=== PATIENT | male | born 1955 | race African-American/Black ===

== ENCOUNTER 2016-12-04 09:15 | Emergency (ER) | payer MEDICAID ==
[2016-12-04] MEDS ORDERED: AMLODIPINE BESYLATE 5 MG TABLET PO ONE (10:18)
[2016-12-04] MEDS ORDERED: OXYCODONE-ACETAMINOPHEN 5-325 MG TABLET PO ONE (10:19)
--- NOTE | 2016-12-04 10:22 | ER Document Report ---
ED General - General Chief Complaint: High Blood Pressure Stated Complaint: HIGH BLOOD PRESSURE CONCERNS Mode of Arrival: Ambulatory Information source: Patient Notes: 61 yr old male presents with complaints of high blood pressure and gout i nthe left big toe. pt denies any fevers or chills. pt presents with an empty bottle of amlodipine 5mg daily which was filled by the ED in 2014. pt notes gout has been bothering him for a few days TRAVEL OUTSIDE OF THE [place] IN LAST 30 DAYS: No - HPI Onset: Other Onset/Duration: Persistent Quality of pain: Achy Severity: Mild Pain Level: 1 Associated symptoms: Other. denies: Headache Exacerbated by: Denies Relieved by: Denies Similar symptoms previously: Yes Recently seen / treated by doctor: Yes - Related Data Allergies/Adverse Reactions: No Known Allergies Allergy (Verified 12/04/16 09:24) Past Medical History - Social History Smoking Status: Never Smoker Cigarette use (# per day): No Chew tobacco use (# tins/day): No Smoking Education Provided: No Frequency of alcohol use: None Drug Abuse: None Family History: Reviewed & Not Pertinent Patient has suicidal ideation: No Patient has homicidal ideation: No - Past Medical History Cardiac Medical History: Reports: Hx Hypertension Renal/ Medical History: Denies: Hx Peritoneal Dialysis Musculoskeltal Medical History: Reports Hx Gout Past Surgical History: Reports: Hx Bowel Surgery - Colonoscopy with polyp removal 2004 - Immunizations Immunizations up to date: Yes Hx Diphtheria, Pertussis, Tetanus Vaccination: Yes Review of Systems - Review of Systems Notes: REVIEW OF SYSTEMS: CONSTITUTIONAL : Denies fever, chills, or sweats. Denies recent illness. EENT: Denies eye, ear, throat, or mouth pain or symptoms. Denies nasal or sinus congestion or discharge. Denies throat, tongue, or mouth swelling or difficulty swallowing. CARDIOVASCULAR: Denies chest pain. Denies palpitations or racing or irregular heart beat. Denies ankle edema. RESPIRATORY: Denies cough, cold, or chest congestion. Denies shortness of breath, difficulty breathing, or wheezing. GASTROINTESTINAL: Denies abdominal pain or distention. Denies nausea, vomiting , or diarrhea. Denies blood in vomitus, stools, or per rectum. Denies black, tarry stools. Denies constipation. GENITOURINARY: Denies difficulty urinating, painful urination, burning, frequency, blood in urine, or discharge. MUSCULOSKELETAL: admits to toe pain SKIN: Denies rash, lesions or sores. HEMATOLOGIC : Denies easy bruising or bleeding. LYMPHATIC: Denies swollen, enlarged glands. NEUROLOGICAL: Denies confusion or altered mental status. Denies passing out or loss of consciousness. Denies dizziness or lightheadedness. Denies headache. Denies weakness or paralysis or loss of use of either side. Denies problems with gait or speech. Denies sensory loss, numbness, or tingling. Denies seizures. PSYCHIATRIC: Denies anxiety or stress. Denies depression, suicidal ideation, or homicidal ideation. ALL OTHER SYSTEMS REVIEWED AND NEGATIVE. Dictation was performed using [employer] voice recognition software PHYSICAL EXAMINATION: GENERAL: Well-appearing, well-nourished and in no acute distress. HEAD: Atraumatic, normocephalic. EYES: Pupils equal round and reactive to light, extraocular movements intact, sclera anicteric, conjunctiva are normal. ENT: Nares patent, oropharynx clear without exudates. Moist mucous membranes. NECK: Normal range of motion, supple without lymphadenopathy LUNGS: Breath sounds clear to auscultation bilaterally and equal. No wheezes rales or rhonchi. HEART: Regular rate and rhythm without murmurs ABDOMEN: Soft, nontender, nondistended abdomen. No guarding, no rebound. No masses appreciated. Musculoskeletal: Normal range of motion, no pitting or edema. No cyanosis. NEUROLOGICAL: Cranial nerves grossly intact. Normal speech, normal gait. Normal sensory, motor exams PSYCH: Normal mood, normal affect. SKIN: left foot 1st digit warm ,tender ot palpation no secondary sign of infection Physical Exam - Vital signs Vitals: Temp Pulse Resp BP Pulse Ox 97 F L 78 16 208/91 H 98 12/04/16 09:28 12/04/16 09:28 12/04/16 09:28 12/04/16 09:28 12/04/16 09:28 Course - Re-evaluation Re-evalutation: 12/04/16 11:38 pt given a dose of amlodipine and a refil, he was provided pain control since he does not want indomethacin or prednisone. pt otehrwise stable, bp lowered 20 % before discharge pt must see a pcp since he hasnt had bp meds filled in over 14 months After performing a Medical Screening Examination, I estimate there is LOW risk for ACUTE CORONARY SYNDROME, RESPIRATORY FAILURE, SEPSIS OR MENINGITIS, thus I consider the discharge disposition reasonable. The patient and I have discussed the diagnosis and risks, and we agree with discharging home with close follow- up. We also discussed returning to the Emergency Department immediately if new or worsening symptoms occur. We have discussed the symptoms which are most concerning (e.g., changing or worsening pain, trouble swallowing or breathing, neck stiffness, fever) that necessitate immediate return. - Vital Signs Vital signs: Temp Pulse Resp BP Pulse Ox 98.5 F 73 16 176/111 H 99 12/04/16 10:38 12/04/16 10:38 12/04/16 09:28 12/04/16 10:38 12/04/16 10:38 Discharge - Discharge Clinical Impression: Uncontrolled hypertension, Noncompliance with medication regimen Gout Qualifiers: Gout site: toe Gout etiology: unspecified cause Laterality: left Chronicity: acute Qualified Code(s): M10.9 - Gout, unspecified Condition: Stable Disposition: HOME, SELF-CARE Instructions: High Blood Pressure, Requiring Treatment ([facility]) Prescriptions: Amlodipine Besylate 5 mg PO DAILY #30 tab Oxycodone HCl/Acetaminophen [Percocet 5-325 mg Tablet] 1 tab PO Q6 #15 tab Referrals: [facility] [Provider Group] - Follow up as needed
[2016-12-04 10:46] VITALS: BP 176/111
== END 2016-12-04 10:44 | disposition home or self-care (01) ==
LOC: ER 09:15
DX: I10 Essential (primary) hypertension (principal); Z91.14 Patient's other noncompliance with medication regimen; M10.9 Gout, unspecified
CPT/HCPCS: 99283; J3490

== ENCOUNTER 2016-12-22 10:18 | Emergency (ER) | payer MEDICAID ==
--- NOTE | 2016-12-22 11:01 | ER Document Report ---
ED Medical Screen (RME) - General Chief Complaint: Foot Pain Stated Complaint: FOOT PAIN Mode of Arrival: Ambulatory Information source: Patient Notes: 61 y/o M presents to ED c/o bilateral foot pain since this morning. Reports hx of gout and states feels like a flare up. was here approximately 2 weeks ago for similar symptoms as well as elevated bp. does not have any medication for gout and has not been able to see pcp. I have greeted and performed a rapid initial assessment of this patient. A comprehensive ED assessment and evaluation of the patient, analysis of test results and completion of the medical decision making process will be conducted by additional ED providers. TRAVEL OUTSIDE OF THE [place] IN LAST 30 DAYS: No - Related Data Allergies/Adverse Reactions: No Known Allergies Allergy (Verified 12/22/16 10:56) Past Medical History - Social History Chew tobacco use (# tins/day): No Frequency of alcohol use: None Drug Abuse: None - Past Medical History Cardiac Medical History: Reports: Hx Hypertension Renal/ Medical History: Denies: Hx Peritoneal Dialysis Musculoskeltal Medical History: Reports Hx Gout Past Surgical History: Reports: Hx Bowel Surgery - Colonoscopy with polyp removal 2004 - Immunizations Immunizations up to date: Yes Hx Diphtheria, Pertussis, Tetanus Vaccination: Yes Physical Exam - Vital signs Vitals: Temp Pulse Resp BP Pulse Ox 98.1 F 79 16 180/99 H 97 12/22/16 10:53 12/22/16 10:53 12/22/16 10:53 12/22/16 10:53 12/22/16 10:53 - General General appearance: Appears well, Alert In distress: None - Respiratory Respiratory status: No respiratory distress Course - Vital Signs Vital signs: Temp Pulse Resp BP Pulse Ox 98.1 F 79 16 180/99 H 97 12/22/16 10:53 12/22/16 10:53 12/22/16 10:53 12/22/16 10:53 12/22/16 10:53
[2016-12-22] MEDS ORDERED: OXYCODONE-ACETAMINOPHEN 5-325 MG TABLET PO ONE (14:35)
--- NOTE | 2016-12-22 14:36 | ER Document Report ---
HPI - HPI Patient complains to provider of: gout Onset: This morning Onset/Duration: Sudden Severity: Severe Pain Level: 5 Context: Patient presents to the emergency department with complaints of right great toe pain due to gout. He reports he was here 2 weeks ago for the gout pain also but it was the left great toe. He reports he does have Medicaid and his primary care provider is [facility] but they didn't seem to care. He denies other symptoms such as fever vomiting diarrhea. He denies trauma to the foot. Patient reports he used to go to Dr. chong for gout but she doesn't accept Medicaid anymore. Associated Symptoms: None Exacerbated by: Denies Relieved by: Denies Similar symptoms previously: Yes Recently seen / treated by doctor: Yes - DERM Skin Color: Normal Past Medical History - General Information source: Patient - Social History Smoking Status: Current Every Day Smoker Chew tobacco use (# tins/day): No Frequency of alcohol use: None Drug Abuse: None Family History: Reviewed & Not Pertinent, Malignancy - mom lung cancer Patient has suicidal ideation: No Patient has homicidal ideation: No - Past Medical History Cardiac Medical History: Reports: Hx Hypertension Renal/ Medical History: Denies: Hx Peritoneal Dialysis Musculoskeltal Medical History: Reports Hx Gout Past Surgical History: Reports: Hx Bowel Surgery - Colonoscopy with polyp removal 2004 - Immunizations Immunizations up to date: Yes Hx Diphtheria, Pertussis, Tetanus Vaccination: Yes Vertical Provider Document - CONSTITUTIONAL Agree With Documented VS: Yes Exam Limitations: No Limitations General Appearance: WD/WN, Mild Distress - guarding toe - INFECTION CONTROL TRAVEL OUTSIDE OF THE [place] IN LAST 30 DAYS: No - HEENT HEENT: Atraumatic, Normocephalic - NECK Neck: Normal Inspection, Supple. negative: Lymphadenopathy-Left, Lymphadenopathy-Right - RESPIRATORY Respiratory: Breath Sounds Normal, No Respiratory Distress O2 Sat by Pulse Oximetry: 97 - CARDIOVASCULAR Cardiovascular: Regular Rate - MUSCULOSKELETAL/EXTREMETIES Musculoskeletal/Extremeties: MAEW, FROM, Tender - Right great toe tender with erythema good cap refill - NEURO Level of Consciousness: Awake, Alert, Appropriate Motor/Sensory: No Motor Deficit - DERM Integumentary: Warm, Dry Course - Re-evaluation Re-evalutation: 12/22/16 14:45 I have consulted the attending provider dr martinez per [facility] guidelines Patient was instructed on medications. He was also instructed to follow up with [facility] for chronic treatment of his gout. He verbalized understanding. - Vital Signs Vital signs: Temp Pulse Resp BP Pulse Ox 98.1 F 79 16 180/99 H 97 12/22/16 10:53 12/22/16 10:53 12/22/16 10:53 12/22/16 10:53 12/22/16 10:53 Discharge - Discharge Clinical Impression: Elevated blood pressure reading Gout Qualifiers: Gout site: toe Gout etiology: unspecified cause Laterality: right Chronicity: acute Qualified Code(s): M10.9 - Gout, unspecified Condition: Stable Disposition: HOME, SELF-CARE Instructions: Gout ([facility]), Gout Diet ([facility]), Anti-Inflammatory Medication ([facility]), Steroid Medication, Oral Narcotic Medication ([facility]) Additional Instructions: *You have been evaluated for right great toe pain, history of gout *Monitor your blood pressure. Your blood pressure was elevated today. This may be because you were anxious, in pain or because you need medication. It is important to follow up with your primary care provider for full evaluation. *Follow up with your primary care provider tomorrow for treatment of your blood pressure and gout *Monitor your diet *Take medication as prescribed *Return to ED for worsening condition, changes, needs Prescriptions: Celecoxib [Celebrex 100 mg Capsule] 100 mg PO BID #60 capsule Oxycodone HCl/Acetaminophen [Percocet 5-325 mg Tablet] 1 - 2 tab PO ASDIR PRN # 15 tablet PRN Reason: Prednisone [Deltasone 10 mg Tablet] 10 mg PO ASDIR PRN #21 tablet PRN Reason: Forms: Elevated Blood Pressure Referrals: OBED MERRITT MD [Primary Care Provider] - Follow up as needed
[2016-12-22 15:00] VITALS: BP 187/94
== END 2016-12-22 14:53 | disposition home or self-care (01) ==
LOC: ER 10:18
DX: R03.0 Elevated blood-pressure reading, without diagnosis of hypertension (principal); M10.9 Gout, unspecified; F17.210 Nicotine dependence, cigarettes, uncomplicated
CPT/HCPCS: 99283

== ENCOUNTER 2017-06-04 13:20 | Emergency (ER) | payer MEDICAID ==
[2017-06-04] MEDS ORDERED: CLONIDINE HCL 0.2 MG TABLET PO ONE (13:39)
--- NOTE | 2017-06-04 13:41 | ER Document Report ---
ED Medical Screen (RME) - General Chief Complaint: High Blood Pressure Stated Complaint: HIGH BLOOD PRESSURE Time Seen by Provider: 06/04/17 13:27 Mode of Arrival: Wheelchair Information source: Patient, Relative TRAVEL OUTSIDE OF THE [place] IN LAST 30 DAYS: No - HPI Patient complains to provider of: Elevated blood pressure, periods of confusion Onset: Last week Onset/Duration: Intermittent Notes: 06/04/17 13:40 Patient is a 61-year-old male brought to the emergency room by for complaints of elevated blood pressure with periods of confusion, she states yesterday he was standing, staring at the blank screen of his phone, turnaround and a complete [place] and stated he was disoriented, patient has been without his blood pressure medication for the past 2 weeks, he is also had some other episodes of confusion over the past few days that is concerned about, attempted to take him to see a primary care provider today but was further advised to bring him to the emergency room, at first patient was refusing to be seen in the emergency room but eventually agreeable to, he denies any headache, no vision changes, no chest pain or shortness of breath, he is noted to be quite hypertensive in the triage area, but remaining neurological exam is unremarkable - Related Data Allergies/Adverse Reactions: No Known Allergies Allergy (Verified 06/04/17 13:37) Past Medical History - Past Medical History Cardiac Medical History: Reports: Hx Hypertension Renal/ Medical History: Denies: Hx Peritoneal Dialysis Musculoskeltal Medical History: Reports Hx Gout Past Surgical History: Reports: Hx Bowel Surgery - Colonoscopy with polyp removal 2004 - Immunizations Immunizations up to date: Yes Hx Diphtheria, Pertussis, Tetanus Vaccination: Yes Physical Exam - Vital signs Vitals: Temp Pulse Resp BP Pulse Ox 99.6 F 79 18 203/99 H 99 06/04/17 13:22 06/04/17 13:22 06/04/17 13:22 06/04/17 13:22 06/04/17 13:22 Course - Vital Signs Vital signs: Temp Pulse Resp BP Pulse Ox 99.6 F 79 18 203/99 H 99 06/04/17 13:22 06/04/17 13:22 06/04/17 13:22 06/04/17 13:22 06/04/17 13:22
[2017-06-04 14:06] LABS: ABSOLUTE BASOPHILS # (AUTO) 0.1 10^3/uL (0.0-0.2); ABSOLUTE MONOCYTES (AUTO) 0.8 10^3/uL (0.1-1.4); ABSOLUTE NEUT (AUTO) 3.8 10^3/uL (1.7-8.2); EOSINOPHILS % (AUTO) 0.4 % (0-6); HEMATOCRIT 49.6 % (37.9-51.0); HEMOGLOBIN 16.7 g/dL (13.5-17.0); HGB HCT DIFFERENCE 0.5; MEAN CORPUSCULAR HEMOGLOBIN 30.5 pg (27.0-33.4); MEAN CORPUSCULAR HGB CONC 33.6 g/dL (32.0-36.0); MEAN CORPUSCULAR VOLUME 91 fl (80-97); MONOCYTES % (AUTO) 11.9 % (3-13); RED BLOOD COUNT 5.47 10^6/uL (4.35-5.55); RED CELL DISTRIBUTION WIDTH 15.6 % (11.5-14.0); SEGMENTED NEUTROPHILS % (AUTO) 56.7 % (42-78); WHITE BLOOD COUNT 6.6 10^3/uL (4.0-10.5)
[2017-06-04 14:13] LABS: APPEARANCE,URINE CLEAR; BILIRUBIN,URINE NEGATIVE (NEGATIVE); GLUCOSE, URINE NEGATIVE (NEGATIVE); KETONES,URINE NEGATIVE (NEGATIVE); LEUKOCYTE ESTERASE,URINE NEGATIVE (NEGATIVE); NITRITE,URINE NEGATIVE (NEGATIVE); PROTEIN,URINE 100 mg/dL (NEGATIVE); UROBILINOGEN,URINE NEGATIVE mg/dL (<2.0)
[2017-06-04 14:16] LABS: PROTHROMBIN TIME 13.5 SEC (11.4-15.4)
[2017-06-04 14:17] LABS: PARTIAL THROMBOPLASTIN TIME 27.9 SEC (23.5-35.8)
[2017-06-04 14:25] LABS: ALANINE AMINOTRANSFERASE 24 U/L (21-72); ALBUMIN 4.9 g/dL (3.5-5.0); ALKALINE PHOSPHATASE 83 U/L (38-126); ANION GAP 14 (5-19); ASPARTATE AMINO TRANSFERASE 27 U/L (17-59); BILIRUBIN,DIRECT 0.3 mg/dL (0.0-0.4); BILIRUBIN,TOTAL 0.5 mg/dL (0.2-1.3); BLOOD UREA NITROGEN 18 mg/dL (7-20); CALCIUM 9.4 mg/dL (8.4-10.2); CARBON DIOXIDE 27 mmol/L (22-30); CHLORIDE 102 mmol/L (98-107); CREATINE KINASE 197 U/L (55-170); CREATININE RESULT 1.22 mg/dL (0.52-1.25); GLUCOSE 135 mg/dL (75-110); POTASSIUM 4.2 mmol/L (3.6-5.0); SODIUM 142.6 mmol/L (137-145); TOTAL PROTEIN 8.1 g/dL (6.3-8.2)
[2017-06-04 14:33] LABS: CREATINE KINASE MB 1.37 ng/mL (<4.55)
[2017-06-04 14:34] LABS: TROPONIN I < 0.012 ng/mL
--- NOTE | 2017-06-04 14:35 | ER Document Report ---
ED Neuro Symptoms/Deficit - General Chief Complaint: High Blood Pressure Stated Complaint: HIGH BLOOD PRESSURE Time Seen by Provider: 06/04/17 13:27 Mode of Arrival: Wheelchair Notes: The patient is a 61-year-old male, past medical history hypertension, presents with 24 hours of ataxia and confusion, according to his at bedside. The patient was saying that he was going to change the brakes on the car, but the said they do not not have a car. When he walks, he is drifting to the right side. Patient is intermittently noncompliant with his blood pressure medications. He took a baby aspirin earlier today. Patient denies headache, blurry vision, focal weakness, numbness, tingling, difficulty swallowing, shortness of breath, chest pain, fevers, back pain or abdominal pain. TRAVEL OUTSIDE OF THE [place] IN LAST 30 DAYS: No - Related Data Allergies/Adverse Reactions: No Known Allergies Allergy (Verified 06/04/17 13:37) Past Medical History - General Information source: Patient, Relative - Social History Smoking Status: Current Every Day Smoker Chew tobacco use (# tins/day): No Frequency of alcohol use: None Drug Abuse: None Family History: Reviewed & Not Pertinent - Past Medical History Cardiac Medical History: Reports: Hx Hypertension Renal/ Medical History: Denies: Hx Peritoneal Dialysis Musculoskeltal Medical History: Reports Hx Gout Past Surgical History: Reports: Hx Bowel Surgery - Colonoscopy with polyp removal 2004 - Immunizations Immunizations up to date: Yes Hx Diphtheria, Pertussis, Tetanus Vaccination: Yes Review of Systems - Review of Systems Notes: REVIEW OF SYSTEMS: CONSTITUTIONAL: -fevers, -chills EENT: -eye pain, -difficulty swallowing, -nasal congestion CARDIOVASCULAR:-chest pain, -syncope. RESPIRATORY: -cough, -SOB GASTROINTESTINAL: -abdominal pain, - nausea, -vomiting, -diarrhea GENITOURINARY: -dysuria, -hematuria MUSCULOSKELETAL: -back pain, -neck pain SKIN: -rash or skin lesions. HEMATOLOGIC: -easy bruising or bleeding. LYMPHATIC: -swollen, enlarged glands. NEUROLOGICAL: +confusion, +ataxia, -loss of consciousness, -headache PSYCHIATRIC: -anxiety, -depression. ALL OTHER SYSTEMS REVIEWED AND NEGATIVE. Physical Exam - Vital signs Vitals: Temp Pulse Resp BP Pulse Ox 99.6 F 79 18 203/99 H 99 06/04/17 13:22 08/03/17 13:22 06/04/17 13:22 06/04/17 13:22 06/04/17 13:22 - Notes Notes: PHYSICAL EXAMINATION: GENERAL: Well-appearing, well-nourished and in no acute distress. Protecting his airway. HEAD: Atraumatic, normocephalic. EYES: Pupils equal round and reactive to light, extraocular movements intact, sclera anicteric, conjunctiva are normal. ENT: nares patent, oropharynx clear without exudates. Moist mucous membranes. NECK: Normal range of motion, supple without lymphadenopathy LUNGS: Breath sounds clear to auscultation bilaterally and equal. No wheezes rales or rhonchi. HEART: Regular rate and rhythm without murmurs ABDOMEN: Soft, nontender, normoactive bowel sounds. No guarding, no rebound. No masses appreciated. EXTREMITIES: Normal range of motion, no pitting or edema. No cyanosis. NEUROLOGICAL: Cranial nerves grossly intact. Slowed speech, but not slurred. 5/ 5 strength in all 4 extremities. Sensation intact. Past pointing present in right arm. Positive Romberg's. Unable to perform rapid alternating hand movements. PSYCH: Normal mood, normal affect. SKIN: Warm, Dry, normal turgor, no rashes or lesions noted. Course - Re-evaluation Re-evalutation: 06/04/17 14:20 Saw patient immediately after his CT scan. Spoke to Dr. Delaney (Radiologist) and she said that patient has a thalamic hemorrhagic infarct that went intraventricular with mild hydrocephalus. Patient is protecting his airway. Cardene drip started with goal blood pressure <140/90. 06/04/17 14:38 No Neurosurgery aws solution architect at [place]. Spoke to [facility] and awaiting callback from Neurosurgery and MICU. 06/04/17 14:[address] Mina ([facility]) and he has accepted patient. 06/04/17 19:29 Pt ambulated out the ambulance bay to smoke a cigarette. Attempted to bring pt in, but he refused until his cigarette is done. Security and RN outside with patient. Nicotine patch provided to patient. 06/04/17 20:18 Transport in ED. Pt is HD stable and protecting his airway. He is safe for transport. - Vital Signs Vital signs: Temp Pulse Resp BP Pulse Ox 98.9 F 76 26 H 156/82 H 100 06/04/17 13:33 06/04/17 16:15 06/04/17 20:05 06/04/17 20:05 06/04/17 19:11 - Laboratory Result Diagrams: 06/04/17 13:55 06/04/17 13:55 Laboratory results interpreted by me: 06/04/17 06/04/17 06/04/17 13:55 13:55 13:58 RDW 15.6 H Glucose 135 H Creatine Kinase 197 H Urine Protein 100 H - Diagnostic Test Radiology reviewed: Image reviewed, Reports reviewed Radiology results interpreted by me: CT Head: Acute hemorrhage, left medial thalamus with extension into the 3rd ventricle and frontal horns lateral ventricles with very early changes of hydrocephalus. Mild dilatation of the temporal horns lateral ventricles. CXR: NAD - EKG Interpretation by Me EKG shows normal: Sinus rhythm, [place], Intervals, QRS Complexes, ST-T Waves Rate: Normal When compared to previous EKG there are: Previous EKG unavailable Additional EKG results interpreted by me: LV[facility]. ST depressions in V5-V6. Critical Care Note - Critical Care Note Total time excluding time spent on procedures (mins): 35 Discharge - Discharge Clinical Impression: Thalamic hemorrhage with stroke Condition: Serious Disposition: [facility] Referrals: OBED MERRITT MD [Primary Care Provider] - Follow up as needed
--- NOTE | 2017-06-04 14:40 | RADIOLOGY REPORT (SQ) ---
EXAM DESCRIPTION: CT HEAD WITHOUT COMPLETED DATE/TIME: 06/04/2017 2:22 pm REASON FOR STUDY: injury COMPARISON: None. TECHNIQUE: Axial images acquired through the brain without intravenous contrast. Images reviewed wi th bone, brain and subdural windows. Images stored on PACS. All CT scanners at this facility use dose modulation, iterative reconstruction, and/or weight based d osing when appropriate to reduce radiation dose to as low as reasonably achievable (ALARA). [facility]: Dose Right [facility]: CareDose [facility]: Dose Right [facility]: Teradose 4D [facility]: Smart DEXMA RADIATION DOSE: Up-to-date CT equipment and radiation dose reduction techniques were employed. CTDIv ol: 64.6 mGy. DLP: 1163 mGy-cm. mGy. LIMITATIONS: None. FINDINGS: VENTRICLES: Very mild prominence of the temporal horns of the lateral ventricles. There i s acute intraventricular hemorrhage in the 3rd ventricle and frontal horns lateral ventricles near th e foramina of [place]. Hemorrhage likely originates from the medial left thalamus. CEREBRUM: On axial image 19, a 2 x 1.5 cm acute parenchymal hemorrhage in the medial left thalamus is present. This extends medially into the 3rd ventricle. There is mild local mass effect from the sp lenic parenchymal hemorrhage. Remainder of the brain parenchyma demonstrates up chronic punctate lacunar infarct in the right thala mus axial image 19, and mild spotty bifrontal and biparietal small vessel chronic white matter diseas e. CEREBELLUM: No masses. No hemorrhage. No alteration of density. No evidence for acute infarction. EXTRAAXIAL SPACES: No fluid collections. No masses. ORBITS AND GLOBE: No intra- or extraconal masses. Normal contour of globe without masses. CALVARIUM: No fracture. PARANASAL SINUSES: No fluid or mucosal thickening. SOFT TISSUES: No mass or hematoma. OTHER: Results called to Dr. Esteves, 1420 hours 06/04/2017. IMPRESSION: Acute hemorrhage, left medial thalamus with extension into the 3rd ventricle and frontal horns lateral ventricles with very early changes of hydrocephalus. Mild dilatation of the temporal horns lateral ventricles. COMMENT: Pertinent findings on the imaging study reported as a CRITICAL RESULT to Dr Esteves at14:20 on 06/04/2017. Category of Critical Result: Acute intracranial hemorrhage, hemorrhagic left medial thalmic infarct w ith intraventricular extension of acute hemorrhage and mild hydrocephalus TECHNICAL DOCUMENTATION: JOB ID: [id number] Quality ID # [id number]: Final reports with documentation of one or more dose reduction techniques (e.g., Au tomated exposure control, adjustment of the mA and/or kV according to patient size, use of iterative reconstruction technique) 2010 [employer]- All Rights Reserved
[2017-06-04] MEDS: NICARDIPINE HCL RTU, ISO-OS 200 ML IV PRN ×2 (14:47→17:51)
--- NOTE | 2017-06-04 15:00 | RADIOLOGY REPORT (SQ) ---
EXAM DESCRIPTION: CHEST PA/LAT COMPLETED DATE/TIME: 06/04/2017 2:35 pm REASON FOR STUDY: cough COMPARISON: 10/21/2015 EXAM PARAMETERS: NUMBER OF VIEWS: two views TECHNIQUE: Digital Frontal and Lateral radiographic views of the chest acquired. RADIATION DOSE: NA LIMITATIONS: none FINDINGS: LUNGS AND PLEURA: No opacities, masses or pneumothorax. No pleural effusion. MEDIASTINUM AND HILAR STRUCTURES: No masses or contour abnormalities. HEART AND VASCULAR STRUCTURES: Heart normal size. No evidence for failure. BONES: No acute findings. HARDWARE: None in the chest. OTHER: No other significant finding. IMPRESSION: NO SIGNIFICANT RADIOGRAPHIC FINDING IN THE CHEST. TECHNICAL DOCUMENTATION: JOB ID: [id number] 1919 [employer]- All Rights Reserved
--- NOTE | 2017-06-04 15:57 | ER Document Report ---
ED NIH Stroke Scale - NIH Stroke Scale When completed:: Before Alteplase *: 1. NIH scale should be completed with appropriate accompanying assessment tools. *: 2. The NIH should reflect what the patient is capable of doing and should not be coached by the clinician. 1a. Level of Consciousness: 0=Alert;keenly responsive -: 1=Drowsy -: 2=Obtunded -: 3=Coma/unresponsive or reflex to noxious stimuli. 1a. Responses: 0 1b. Orientation Questions: a. What month is it? -: b. How old are you? -: 0=Answers both questions correctly. -: 1=Answers one question correctly or patient is intubated or has orotracheal trauma. -: 2=Answers neither question correctly. 1b. Responses: 0 1c. Response to commands: a. Open and close eyes? -: b. Seasonal Customer Service Associate and release hand? -: Credit is given despite weakness. Demonstration of task is permitted. Substitute command if hands cannot be used. -: 0=Performs both tasks correctly -: 1=Performs one task correctly -: 2=Performs neither task correctly 1c. Responses: 0 2. Gaze: Establish eye contact and instruct patient to "Follow my finger" -: 0=Normal -: 1=Partial gaze palsy. Gaze is abnormal in one or both eyes, but where forced deviation or total gaze paresis is not present. -: 2=Forced deviation or total gaze paresis. 2. Responses: 0 3. Visual Mclaughlin: Sees fingers in all four quadrants. -: 0=No visual loss. -: 1=Partial hemianopsia. -: 2=Complete hemianopsia. -: 3=Bilateral hemianopsia (including Cortical blindness) 3. Responses: 0 4. Facial Movement: Instruct patient to: -: a. Show me your teeth -: b. Raise your eyebrows -: c. Close your eyes -: d. Smile -: 0=Normal symmetrical movement -: 1=Minor paralysis (flattened nasolabial fold, asymmetry on smiling). -: 2=Partial paralysis (total or near total paralysis of lower face). -: 3=Complete paralysis of upper and lower face 4. Responses: 0 5. Motor functions (left arm): Alternate sides and extend each arm with palms down (90 degrees if sitting or 45 degrees for supine). -: 0=No drift;limb holds for full 10 seconds. -: 1=Drift; limb holds but drifts down before full 10 seconds, but does not hit bed. -: 2=Some effort against gravity; limb cannot get to or maintain position. -: 3=No effort against gravity; limb falls. -: 4=No movement. -: UN=Amputation, joint fusion, explain in comments. 5. Responses (left arm): 0 5. Motor Functions (right arm): Alternate sides and extend each arm with palms down (90 degrees if sitting or 45 degrees for supine). -: 0=No drift;limb holds for full 10 seconds. -: 1=Drift; limb holds but drifts down before full 10 seconds, but does not hit bed. -: 2=Some effort against gravity; limb cannot get to or maintain position. -: 3=No effort against gravity; limb falls. -: 4=No movement. -: UN=Amputation, joint fusion, explain in comments. 5. Responses (right arm): 0 6. Motor Functions (left leg): With patient lying supine, alternate sides and extend each leg (30 degrees always while supine). -: 0=No drift, leg holds position for full 5 seconds -: 1=Drift; leg falls before full 5 seconds but does not hit bed. -: 2=Some effort against gravity, leg falls to bed but some effort against gravity. -: 3=No effort against gravity, leg falls to bed immediately. -: 4=No movement. -: UN=Amputation, joint fusion; explain in comments. 6. Responses (left leg): 0 6. Motor Functions (right leg): With patient lying supine, alternate sides and extend each leg (30 degrees always while supine). -: 0=No drift, leg holds position for full 5 seconds -: 1=Drift; leg falls before full 5 seconds but does not hit bed. -: 2=Some effort against gravity, leg falls to bed but some effort against gravity. -: 3=No effort against gravity, leg falls to bed immediately. -: 4=No movement. -: UN=Amputation, joint fusion; explain in comments. 6. Responses (right leg): 0 7. Limb Ataxia: With eyes open instruct patient to: -: a. "Touch your finger to your nose". -: b. "Touch your heel to your torres" -: 0=Absent -: 1=Present in one limb. -: 2=Present in two limbs. -: UN=Amputation or joint fusion; explain in comments. 7. Responses: 1 8. Sensory: Test sensation using pinprick or noxious stimuli. Test as many body parts as possible. -: 0=Normal;no sensory loss -: 1=Mile to moderate sensory loss (patient feels pin prick but is less sharp on affected side). -: 2=Severe or total sensory loss. 8. Responses: 0 9. Best Language: Instruct patient to: -: a. "Describe what you see in this picture." -: b. "Name the items in this picture." -: c. "Read these sentences." -: 0=No aphasia, normal -: 1=Mild to moderate aphasia. -: 2=Severe aphasia -: 3=Mute, global aphasia, no usable speech or auditory comprehension. 9. Responses: 1 10. Articulation, Dysarthia: Instruct patient to: -: "Read these words" or "Repeat these words" -: 0=Normal -: 1=Mild to moderate; patient may slur some words but can be understood without difficulty. -: 2=Severe; patients speech so slurred as to be unintelligible in the absence of dysphasia. -: UN=Intubated or other physical barrier, explain in comments. 10. Responses: 1 11. Extinction or inattention: 0=No abnormality -: 1= Visual, tactile, auditory, spatial, or personal inattention or extinction to bilateral simulation in one or the sensory modalities. -: 2=Profound mateo-inattention or mateo-inattention to more than one modality; does not recognize own hand. 11. Responses: 0 Total Score: 3
--- NOTE | 2017-06-04 19:17 | EKG REPORT ---
SEVERITY:- ABNORMAL ECG - SINUS RHYTHM LEFT ATRIAL ABNORMALITY PROBABLE LVH WITH SECONDARY REPOL ABNRM : Confirmed by: Joey Finch MD 04-Jun-2017 19:16:18
[2017-06-04] MEDS ORDERED: NICOTINE 21 MG/24 HR PATCH.TD24 TD ONE (19:36)
[2017-06-04 21:41] VITALS: BP 129/83
== END 2017-06-04 20:36 | disposition short-term general hospital (02) ==
LOC: ER 13:20
DX: I63.9 Cerebral infarction, unspecified (principal); I10 Essential (primary) hypertension; R27.0 Ataxia, unspecified; R41.82 Altered mental status, unspecified; Z91.14 Patient's other noncompliance with medication regimen; F17.200 Nicotine dependence, unspecified, uncomplicated
CPT/HCPCS: 93005; 99285; 96365; 96366; 36415; 82553; 82550; 85025; 85610; 85730; 80053; 81001; 84484; 71020; 70450; 93010; J3490 ×3

== ENCOUNTER 2017-06-13 22:38 | Emergency (ER) | payer MEDICAID ==
[2017-06-13] MEDS ORDERED: QUETIAPINE FUMARATE 25 MG TABLET PO ONE (23:38)
[2017-06-13] MEDS ORDERED: LISINOPRIL 10 MG TABLET PO ONE (23:38)
--- NOTE | 2017-06-13 23:40 | ER Document Report ---
ED General - General Chief Complaint: S/S of Possible Stroke Stated Complaint: MEDICATION REFILL Time Seen by Provider: 06/13/17 23:30 Notes: The patient is a 61-year-old male, past medical history hemorrhagic thalamic stroke 9 days ago, hypertension, presents with his after he was discharged from [facility] at 2000 tonight and he was unable to fill his medication scripts because all the pharmacies are closed. He is due to take 40 mg lisinopril and 25 mg Seroquel at night. He has a prescription for his morning medications and his said that he will be able to fill them tomorrow. He did not have any neurosurgery at [facility] and had multiple CAT scans to make sure that his hemorrhagic stroke was not progressing and was resolving as appropriate. His said that his mental status is at baseline after the stroke and patient denies any complaints at this time. TRAVEL OUTSIDE OF THE [place] IN LAST 30 DAYS: No - Related Data Allergies/Adverse Reactions: No Known Allergies Allergy (Verified 06/04/17 13:37) Past Medical History - General Information source: Patient, Parent - Social History Smoking Status: Current Every Day Smoker Family History: Reviewed & Not Pertinent Patient has suicidal ideation: No Patient has homicidal ideation: No - Past Medical History Cardiac Medical History: Reports: Hx Hypertension Renal/ Medical History: Denies: Hx Peritoneal Dialysis Musculoskeltal Medical History: Reports Hx Gout Past Surgical History: Reports: Hx Bowel Surgery - Colonoscopy with polyp removal 2004 - Immunizations Immunizations up to date: Yes Hx Diphtheria, Pertussis, Tetanus Vaccination: Yes Review of Systems - Review of Systems Notes: REVIEW OF SYSTEMS: CONSTITUTIONAL: -fevers, -chills EENT: -eye pain, -difficulty swallowing, -nasal congestion CARDIOVASCULAR:-chest pain, -syncope. RESPIRATORY: -cough, -SOB GASTROINTESTINAL: -abdominal pain, - nausea, -vomiting, -diarrhea GENITOURINARY: -dysuria, -hematuria MUSCULOSKELETAL: -back pain, -neck pain SKIN: -rash or skin lesions. HEMATOLOGIC: -easy bruising or bleeding. LYMPHATIC: -swollen, enlarged glands. NEUROLOGICAL: +confusion, -headache PSYCHIATRIC: -anxiety, -depression. ALL OTHER SYSTEMS REVIEWED AND NEGATIVE. Physical Exam - Vital signs Vitals: Temp Pulse Resp BP Pulse Ox 98.9 F 91 18 160/106 H 99 06/13/17 22:43 06/13/17 22:43 06/13/17 22:43 06/13/17 22:43 06/13/17 22:43 - Notes Notes: PHYSICAL EXAMINATION: GENERAL: Well-appearing, well-nourished and in no acute distress. HEAD: Atraumatic, normocephalic. EYES: Pupils equal round and reactive to light, extraocular movements intact, sclera anicteric, conjunctiva are normal. ENT: nares patent, oropharynx clear without exudates. Moist mucous membranes. NECK: Normal range of motion, supple without lymphadenopathy LUNGS: Breath sounds clear to auscultation bilaterally and equal. No wheezes rales or rhonchi. HEART: Regular rate and rhythm without murmurs ABDOMEN: Soft, nontender, normoactive bowel sounds. No guarding, no rebound. No masses appreciated. EXTREMITIES: Normal range of motion, no pitting or edema. No cyanosis. NEUROLOGICAL: Cranial nerves grossly intact. Normal speech, normal gait. Normal sensory and motor exams. AAOx2. PSYCH: Normal mood, normal affect. SKIN: Warm, Dry, normal turgor, no rashes or lesions noted. Course - Re-evaluation Re-evalutation: Patient's head CT shows expected resolution of his thalamic hemorrhagic stroke and no other acute issues. Patient provided with his nighttime medications and instructed his to grape picker the medications tomorrow morning. They have a follow-up appointment next week with [facility] and instructed them to continue to keep that appointment. Given strict return precautions and they understand. - Vital Signs Vital signs: Temp Pulse Resp BP Pulse Ox 98.9 F 91 15 181/103 H 97 06/13/17 22:43 06/13/17 22:43 06/13/17 23:39 06/13/17 23:39 06/13/17 23:39 Discharge - Discharge Clinical Impression: Confusion, Medication refill Hypertension Qualifiers: Hypertension type: unspecified Qualified Code(s): I10 - Essential (primary) hypertension Condition: Stable Disposition: HOME, SELF-CARE Additional Instructions: Fill the medications tomorrow and follow-up with the neurologist as scheduled next week. Return to the ER if you notice any worsening symptoms or you have any other concerns.
--- NOTE | 2017-06-13 23:57 | RADIOLOGY REPORT (SQ) ---
EXAM DESCRIPTION: CT HEAD WITHOUT COMPLETED DATE/TIME: 06/13/2017 11:39 pm REASON FOR STUDY: stroke like sx COMPARISON: 06/04/2017 TECHNIQUE: Axial images acquired through the brain without intravenous contrast. Images reviewed wi th bone, brain and subdural windows. Images stored on PACS. All CT scanners at this facility use dose modulation, iterative reconstruction, and/or weight based d osing when appropriate to reduce radiation dose to as low as reasonably achievable (ALARA). [facility]: Dose Right [facility]: CareDose [facility]: Dose Right [facility]: Teradose 4D [facility]: Smart [employer] RADIATION DOSE: Up-to-date CT equipment and radiation dose reduction techniques were employed. CTDIv ol: 64.6 mGy. DLP: 1163 mGy-cm. mGy. LIMITATIONS: None. FINDINGS: VENTRICLES: Mildly prominent, stable. CEREBRUM: A recently diagnosed left thalamic parenchymal hemorrhage demonstrates continued evolution of blood products; the appearance of residual hyperattenuation centrally is an expected appearance of subacute blood products. No masses. No acute hemorrhage. No midline shift. Few, scattered foci o f hypoattenuation within the white matter is consistent with microvascular ischemic change. No evide nce for acute infarction. CEREBELLUM: No masses. No hemorrhage. No alteration of density. No evidence for acute infarction. EXTRAAXIAL SPACES: No fluid collections. No masses. ORBITS AND GLOBE: No intra- or extraconal masses. Normal contour of globe without masses. CALVARIUM: No fracture. PARANASAL SINUSES: No fluid or mucosal thickening. SOFT TISSUES: No mass or hematoma. OTHER: No other significant finding. IMPRESSION: Left thalamic parenchymal hemorrhage demonstrating normal evolution of blood products. No evidence of recurrent hemorrhage or acute intracranial abnormality. TECHNICAL DOCUMENTATION: JOB ID: [id number] Quality ID # 436: Final reports with documentation of one or more dose reduction techniques (e.g., Au tomated exposure control, adjustment of the mA and/or kV according to patient size, use of iterative reconstruction technique) 2010 [employer]- All Rights Reserved
[2017-06-14 00:19] VITALS: BP 170/98
== END 2017-06-14 00:26 | disposition home or self-care (01) ==
LOC: ER 22:38
DX: R41.0 Disorientation, unspecified (principal); I10 Essential (primary) hypertension; F17.200 Nicotine dependence, unspecified, uncomplicated; Z86.73 Personal history of transient ischemic attack (TIA), and cerebral infarction without residual deficits; Z76.0 Encounter for issue of repeat prescription
CPT/HCPCS: 99282; 70450; J3490 ×2

== ENCOUNTER 2019-01-04 21:54 | Inpatient (IN) | payer MEDICARE, MEDICAID ==
--- NOTE | 2019-01-04 22:08 | ER Document Report ---
ED Medical Screen (RME) - General Chief Complaint: High Blood Pressure Stated Complaint: HIGH BLOOD PRESSURE Time Seen by Provider: 01/04/19 22:05 Primary Care Provider: OBED MERRITT MD [Primary Care Provider] - Follow up as needed Notes: Patient is a 63-year-old male presents to the emergency department with hypertension. Per patient's son patient has been on even and unsteady on his feet today. States he does complain of a generalized headache. States 911 was alerted to the house and found that the patient had an increase in his blood pressure. According to documentation the sons have the patient is supposed to be on amlodipine but has been out of it for "quite some time." Patient states he does have a slight headache in his forehead. Patient's denying any chest pain or shortness of breath. Pateros CVA scale 0. Patient's blood pressure is noted to be 215/118. gENERAL: Alert, interacts well. No acute distress. HEAD: Normocephalic, atraumatic. EYES: Pupils equal, round, and reactive to light. Extraocular movements intact. LUNGS: Clear to auscultation bilaterally, no wheezes, rales, or rhonchi. No respiratory distress. HEART: Regular rate and rhythm. No murmur EXTREMITIES: Moves all 4 extremities spontaneously. No edema, normal radial and dorsalis pedis pulses bilaterally. No cyanosis. 5 out of 5 strength all 4 extremities NEUROLOGICAL: Alert and oriented x3. Normal speech. PSYCH: Normal affect, normal mood. SKIN: Warm, dry, normal turgor. No rashes or lesions noted. I have greeted and performed a rapid initial assessment of this patient. A comprehensive ED assessment and evaluation of the patient, analysis of test results and completion of the medical decision making process will be conducted by additional ED providers. TRAVEL OUTSIDE OF THE [place] IN LAST 30 DAYS: No - Related Data Allergies/Adverse Reactions: No Known Allergies Allergy (Verified 06/04/17 13:37) Past Medical History - Past Medical History Cardiac Medical History: Reports: Hx Hypertension Renal/ Medical History: Denies: Hx Peritoneal Dialysis Musculoskeltal Medical History: Reports Hx Gout Past Surgical History: Reports: Hx Bowel Surgery - Colonoscopy with polyp removal 2004 - Immunizations Immunizations up to date: Yes Hx Diphtheria, Pertussis, Tetanus Vaccination: Yes Physical Exam - Vital signs Vitals: Temp Pulse Resp BP Pulse Ox 100 F 92 16 215/118 H 99 01/04/19 22:02 01/04/19 22:02 01/04/19 22:02 01/04/19 22:02 01/04/19 22:02 Course - Vital Signs Vital signs: Temp Pulse Resp BP Pulse Ox 100 F 92 16 215/118 H 99 01/04/19 22:02 01/04/19 22:02 01/04/19 22:02 01/04/19 22:02 01/04/19 22:02 Doctor's Discharge - Discharge Referrals: OBED MERRITT MD [Primary Care Provider] - Follow up as needed
--- NOTE | 2019-01-04 22:40 | RADIOLOGY REPORT (SQ) ---
EXAM DESCRIPTION: CT HEAD WITHOUT IV CONTRAST COMPLETED DATE/TME: 01/04/2019 22:05 CLINICAL HISTORY: 63 years, Male, HTN headache COMPARISON: 06/13/2017 CT brain TECHNIQUE: 82 Images stored on PACS. All CT scanners at this facility use dose modulation, iterative reconstruction, and/or weight based dosing when appropriate to reduce radiation dose to as low as reasonably achievable (ALARA). [facility]: Dose Right [facility]: CareDose [facility]: Dose Right [facility]: Teradose 4D [facility]: Smart [employer] LIMITATIONS: None. FINDINGS: The globes are intact. The paranasal sinuses and mastoid air cells are well aerated. No displaced or depressed skull fracture. No intra or extra-axial hemorrhage. Mild diffuse atrophy. Hypodensities in the periventricular and subcortical white matter consistent with sequelae of small vessel ischemic change. CT is limited for evaluation of acute infarct. No CT evidence for large or territorial acute infarct. Remote lacunar infarct of the right thalamus. No mass or midline shift IMPRESSION: Atrophy with small vessel ischemic change. Remote lacunar infarct right thalamus. TECHNICAL DOCUMENTATION: Quality ID # 436: Final reports with documentation of one or more dose reduction techniques (e.g., Automated exposure control, adjustment of the mA and/or kV according to patient size, use of iterative reconstruction technique) copyright 2011 [employer]- All Rights Reserved
--- NOTE | 2019-01-04 22:42 | RADIOLOGY REPORT (SQ) ---
EXAM DESCRIPTION: XR CHEST 1 VIEW COMPLETED DATE/TME: 01/04/2019 22:05 CLINICAL HISTORY: 63 years, Male, HTN COMPARISON: 06/04/2017 chest NUMBER OF VIEWS: 1 TECHNIQUE: Portable chest LIMITATIONS: None. FINDINGS: Heart size is normal. Mild ectasia thoracic aorta. Scarring left lung base. Lungs are otherwise clear. No pneumothorax IMPRESSION: No acute cardiopulmonary process copyright 2010 [employer]- All Rights Reserved
[2019-01-04 22:58] LABS: ABSOLUTE BASOPHILS # (AUTO) 0.1 10^3/uL (0.0-0.2); ABSOLUTE LYMPHOCYTES (AUTO) 1.2 10^3/uL (0.5-4.7); ABSOLUTE MONOCYTES (AUTO) 0.8 10^3/uL (0.1-1.4); ABSOLUTE NEUT (AUTO) 5.5 10^3/uL (1.7-8.2); HEMATOCRIT 54.2 % (37.9-51.0); HEMOGLOBIN 18.3 g/dL (13.5-17.0); LYMPHOCYTES % (AUTO) 15.7 % (13-45); MEAN CORPUSCULAR HEMOGLOBIN 29.6 pg (27.0-33.4); MEAN CORPUSCULAR HGB CONC 33.8 g/dL (32.0-36.0); MEAN CORPUSCULAR VOLUME 88 fl (80-97); MONOCYTES % (AUTO) 10.2 % (3-13); PLATELET COUNT 145 10^3/uL (150-450); RED BLOOD COUNT 6.17 10^6/uL (4.35-5.55); SEGMENTED NEUTROPHILS % (AUTO) 73.1 % (42-78); TOTAL CELLS COUNTED % (AUTO) 100 %; WHITE BLOOD COUNT 7.5 10^3/uL (4.0-10.5)
[2019-01-04 23:07] LABS: INTERNATIONAL RATION (INR) 1.09; PROTHROMBIN TIME 14.6 SEC (11.4-15.4)
[2019-01-04 23:20] LABS: ALANINE AMINOTRANSFERASE 26 U/L (21-72); ALBUMIN 4.9 g/dL (3.5-5.0); ALKALINE PHOSPHATASE 87 U/L (38-126); ANION GAP 14 (5-19); ASPARTATE AMINO TRANSFERASE 38 U/L (17-59); BILIRUBIN,DIRECT 0.4 mg/dL (0.0-0.4); BILIRUBIN,TOTAL 1.1 mg/dL (0.2-1.3); BLOOD UREA NITROGEN 11 mg/dL (7-20); CALCIUM 9.2 mg/dL (8.4-10.2); CARBON DIOXIDE 27 mmol/L (22-30); CHLORIDE 94 mmol/L (98-107); CREATINE KINASE 142 U/L (55-170); GLUCOSE 128 mg/dL (75-110); POTASSIUM 3.9 mmol/L (3.6-5.0); SODIUM 135.4 mmol/L (137-145); TOTAL PROTEIN 8.1 g/dL (6.3-8.2)
[2019-01-04 23:31] LABS: CREATINE KINASE MB 0.54 ng/mL (<4.55)
[2019-01-04 23:33] LABS: TROPONIN I 0.049 ng/mL
[2019-01-04] MEDS ORDERED: AMLODIPINE BESYLATE 5 MG TABLET PO ONE (23:54)
[2019-01-04] MEDS ORDERED: METOPROLOL TARTRATE PF/INJ 5 MG/5 ML SDV IV ONE (23:59)
--- NOTE | 2019-01-04 23:59 | ER Document Report ---
ED Blood Pressure Problem - General Chief Complaint: High Blood Pressure Stated Complaint: HIGH BLOOD PRESSURE Time Seen by Provider: 01/04/19 22:05 TRAVEL OUTSIDE OF THE [place] IN LAST 30 DAYS: No - HPI Notes: Patient is a 63-year-old male that presents to the emergency department for chief complaint of hypertension. Patient had EMS called to the house because he felt dizzy and unsteady on his feet. He reported a mild frontal headache. EMS noted his blood pressure was elevated and referred him to the emergency room. Currently patient states he feels normal and is denying any symptoms including headache, blurry vision, chest pain, shortness of breath, nausea/vomiting and abdominal pain. He states he has been out of his home blood pressure medication for the last 6 months because he has not been in to see his doctor. He states that he is only here to get a refill of his blood pressure medication. Past Medical History: Hypertension, arthritis Past Surgical History: Negative Social History: Daily tobacco. 1-2 beers daily, denies drug use Family History: Reviewed and noncontributory for presenting illness Allergies: Reviewed, see documented allergy list. REVIEW OF SYSTEMS: CONSTITUTIONAL : No fever No chills No diaphoresis No recent illness EENT: No vision changes No congestion No sore throat CARDIOVASCULAR: No chest pain No palpitations RESPIRATORY: No shortness of breath No cough No difficulty breathing GASTROINTESTINAL: No abdominal pain No nausea No vomiting No diarrhea GENITOURINARY: No dysuria No hematuria No difficulty urinating MUSCULOSKELETAL: No back pain No leg pain No arm pain SKIN: No rashes No lesions LYMPHATIC: No swollen, enlarged glands. NEUROLOGICAL: No lightheadedness headache No weakness No paresthesias PSYCHIATRIC: No anxiety No depression PHYSICAL EXAMINATION: Vital signs reviewed, nursing noted reviewed. GENERAL: Well-appearing, well-nourished and in no acute distress. HEAD: Atraumatic, normocephalic. EYES: Eyes appear normal, extraocular movements intact, sclera anicteric, conjunctiva are normal. ENT: nares patent, oropharynx clear without exudates. Dry mucous membranes. NECK: Normal range of motion, supple without lymphadenopathy LUNGS: Breath sounds clear to auscultation bilaterally and equal. No wheezes rales or rhonchi. HEART: Regular rate and rhythm without murmurs ABDOMEN: Soft, nontender, normoactive bowel sounds. No rebound, guarding, or rigidity. No masses appreciated. EXTREMITIES: Nontender, good range of motion, no pitting or edema. NEUROLOGICAL: No focal neurological deficits. Moves all extremities spontaneously Motor and sensory grossly intact on exam. PSYCH: Normal mood, normal affect. SKIN: Warm, Dry, normal turgor, no rashes or lesions noted on exposed skin - Related Data Allergies/Adverse Reactions: No Known Allergies Allergy (Verified 06/04/17 13:37) Past Medical History - Social History Smoking Status: Current Every Day Smoker Family History: Reviewed & Not Pertinent - Past Medical History Cardiac Medical History: Reports: Hx Hypertension Renal/ Medical History: Denies: Hx Peritoneal Dialysis Musculoskeletal Medical History: Reports Hx Gout Past Surgical History: Reports: Hx Bowel Surgery - Colonoscopy with polyp removal 2004 - Immunizations Immunizations up to date: Yes Hx Diphtheria, Pertussis, Tetanus Vaccination: Yes Physical Exam - Vital signs Vitals: Temp Pulse Resp BP Pulse Ox 100 F 92 16 215/118 H 99 01/04/19 22:02 01/04/19 22:02 01/04/19 22:02 01/04/19 22:02 01/04/19 22:02 Course - Re-evaluation Re-evalutation: 01/04/19 23:56 Vitals reviewed. Nursing notes reviewed. Patient has dry mucous membranes and hemoglobin of 18 concerning for some dehydration. He was given gentle IV hydration. He is hypertensive and has an indeterminate troponin of 0.049. Patient has not had any chest pain and his elevated troponin is likely related to his severe hypertension. His CT brain shows remote lacunar infarct with no acute process. Patient will be admitted to the hospital for further blood pressure control and monitoring of his indeterminate troponin. He is in agreement with this plan of care. Laboratory 01/04/19 01/04/19 01/04/19 22:42 22:42 22:42 WBC 7.5 RBC 6.17 H Hgb 18.3 H Hct 54.2 H MCV 88 MCH 29.6 MCHC 33.8 RDW 17.0 H Plt Count 145 L Seg Neutrophils % 73.1 Lymphocytes % 15.7 Monocytes % 10.2 Eosinophils % 0.0 Basophils % 1.0 Absolute Neutrophils 5.5 Absolute Lymphocytes 1.2 Absolute Monocytes 0.8 Absolute Eosinophils 0.0 Absolute Basophils 0.1 PT INR Sodium 135.4 L Potassium 3.9 Chloride 94 L Carbon Dioxide 27 Anion Gap 14 BUN 11 Creatinine 0.98 Est GFR ( Amer) > 60 Est GFR (Non-Af Amer) > 60 Glucose 128 H Calcium 9.2 Total Bilirubin 1.1 Direct Bilirubin 0.4 Neonat Total Bilirubin Not Reportable Neonat Direct Bilirubin Not Reportable Neonat Indirect Bili Not Reportable AST 38 ALT 26 Alkaline Phosphatase 87 Creatine Kinase 142 CK-MB (CK-2) 0.54 Troponin I 0.049 Total Protein 8.1 Albumin 4.9 01/04/19 22:42 WBC RBC Hgb Hct MCV MCH MCHC RDW Plt Count Seg Neutrophils % Lymphocytes % Monocytes % Eosinophils % Basophils % Absolute Neutrophils Absolute Lymphocytes Absolute Monocytes Absolute Eosinophils Absolute Basophils PT 14.6 INR 1.09 Sodium Potassium Chloride Carbon Dioxide Anion Gap BUN Creatinine Est GFR ( Amer) Est GFR (Non-Af Amer) Glucose Calcium Total Bilirubin Direct Bilirubin Neonat Total Bilirubin Neonat Direct Bilirubin Neonat Indirect Bili AST ALT Alkaline Phosphatase Creatine Kinase CK-MB (CK-2) Troponin I Total Protein Albumin Chest X-Ray 01/04/19 22:05 IMPRESSION: No acute cardiopulmonary process copyright 2010 [employer]- All Rights Reserved Head CT 01/04/19 22:05 IMPRESSION: Atrophy with small vessel ischemic change. Remote lacunar infarct right thalamus. TECHNICAL DOCUMENTATION: Quality ID # 436: Final reports with documentation of one or more dose reduction techniques (e.g., Automated exposure control, adjustment of the mA and/or kV according to patient size, use of iterative reconstruction technique) copyright 2011 [employer]- All Rights Reserved 01/05/19 00:20 Patient's family does notified me that he has not had any alcohol in the past 1- 2 days. He is tachycardic and likely an early alcohol withdrawal. Alcohol level will be added on. Patient ordered Ativan for acute alcohol withdrawal. 01/05/19 01:11 Patient blood pressure has improved slightly after medication and Ativan. He is currently at 206/116. Patient was admitted to Dr. Sweeney who just evaluated him in the emergency room. - Vital Signs Vital signs: Temp Pulse Resp BP Pulse Ox 100 F 92 25 H 200/132 H 89 L 01/04/19 22:02 01/04/19 22:02 01/05/19 00:30 01/05/19 00:30 01/05/19 00:30 - Laboratory Result Diagrams: 01/04/19 22:42 01/04/19 22:42 Laboratory results interpreted by me: 01/04/19 01/04/19 22:42 22:42 RBC 6.17 H Hgb 18.3 H Hct 54.2 H RDW 17.0 H Plt Count 145 L Sodium 135.4 L Chloride 94 L Glucose 128 H - EKG Interpretation by Me Additional EKG results interpreted by me: 01/05/19 00:28 Interpreted by myself [id number]: Normal sinus rhythm, rate 97, LVH, borderline prolonged QT, ST elevation V1 V2 likely early re-pole from LVH and unchanged from 06/04/17, nonspecific T wave changes also unchanged from prior EKG Discharge - Discharge Clinical Impression: Hypertensive emergency, Troponin I above reference range Alcohol withdrawal Qualifiers: Complication of substance-induced condition: uncomplicated Qualified Code(s): F10.230 - Alcohol dependence with withdrawal, uncomplicated Condition: Stable Disposition: ADMITTED INPATIENT Admitting Provider: Hospitalist Unit Admitted: [facility]
[2019-01-05] MEDS ORDERED: LORAZEPAM 1 MG TABLET PO ONE (00:19)
[2019-01-05] MEDS ORDERED: RINGERS SOLUTION,LACTATED 1,000 ML IV ONE (00:21)
[2019-01-05] MEDS ORDERED: FOLIC ACID 1 MG TABLET PO ONE (00:22)
[2019-01-05] MEDS ORDERED: THIAMINE HCL 100 MG TABLET PO ONE (00:22)
[2019-01-05] MEDS ORDERED: MAG HYDROX/AL HYDROX/SIMETH SUSP 30 ML UDCUP PO PRN (01:01)
[2019-01-05] MEDS ORDERED: MAGNESIUM HYDROXIDE SUSP 30 ML UDCUP PO PRN (01:01)
[2019-01-05] MEDS ORDERED: ONDANSETRON 4 MG TAB.RAPDIS PO PRN (01:01)
[2019-01-05] MEDS ORDERED: ONDANSETRON HCL INJ/PF 4 MG/2 ML SDV IV PRN (01:01)
[2019-01-05] MEDS ORDERED: NALBUPHINE HCL INJ 10 MG/1 ML AMPULE IV PRN (01:05)
[2019-01-05] MEDS ORDERED: LABETALOL HCL INJ 20 MG/4 ML DISP.SYRIN IV PRN (01:05)
[2019-01-05] MEDS ORDERED: DIAZEPAM 5 MG TABLET PO PRN (01:09)
[2019-01-05] MEDS ORDERED: LISINOPRIL 10 MG TABLET PO ONE (01:18)
--- NOTE | 2019-01-05 01:30 | EKG REPORT ---
SEVERITY:- ABNORMAL ECG - SINUS RHYTHM BIATRIAL ABNORMALITIES LEFT VENTRICULAR HYPERTROPHY ANTERIOR ST ELEVATION, PROBABLY DUE TO LVH BORDERLINE PROLONGED QT INTERVAL : Confirmed by: Moon Ho MD 05-Jan-2019 01:28:59
[2019-01-05] MEDS: HYDRALAZINE HCL INJ/PF 20 MG/1 ML SDV IV PRN (01:46)
[2019-01-05 05:07] LABS: APPEARANCE,URINE CLEAR; BILIRUBIN,URINE NEGATIVE (NEGATIVE); COLOR,URINE YELLOW; GLUCOSE, URINE NEGATIVE (NEGATIVE); KETONES,URINE TRACE mg/dL (NEGATIVE); LEUKOCYTE ESTERASE,URINE NEGATIVE (NEGATIVE); NITRITE,URINE NEGATIVE (NEGATIVE); PROTEIN,URINE 100 mg/dL (NEGATIVE); URINE SPECIFIC GRAVITY 1.009; UROBILINOGEN,URINE NEGATIVE mg/dL (<2.0)
[2019-01-05 05:20] LABS: URINE AMPHETAMINES SCREEN NEGATIVE; URINE BARBITURATES SCREEN NEGATIVE; URINE BENZODIAZEPINES SCREEN NEGATIVE; URINE COCAINE SCREEN NEGATIVE; URINE MARIJUANA (THC) SCREEN UNCONFIRMED POSITIVE; URINE METHADONE SCREEN NEGATIVE; URINE PHENCYCLIDINE SCREEN NEGATIVE
--- NOTE | 2019-01-05 05:34 | PDOC H&P ---
History of Present Illness Admission Date/PCP: 01/05/2019 Patient complains of: High blood pressure History of Present Illness: ERNIE DUKES is a 63 year old male who presented to the emergency room with a 3-4-day history of neurologic changes with hypertension. He admits a mild staggering gait and has moderate unsteadiness on his feet for the last 3 or 4 days. Additionally this afternoon he developed mild dizziness, a moderate generalized headache and his blood pressure "felt very high" at home resulting in his calling EMS to bring him to the hospital. Upon their arrival they d iscovered that his blood pressure was in the 210s over the 110s and brought him to the hospital. He admits to many prior similar episodes that are resulted in him coming to the emergency room for treatment because he does not take his home medications for hypertension. He is not identified any additional aggravating or ameliorating factors for his high blood pressure and associated symptoms. In the emergency room patient was found to have a blood pressure in the 230s over the 130s and was subsequently treated for a hypertensive urgency/emergency. His ER physical evaluation was unremarkable and his CT scan was negative. He was noted to have significant left ventricular hypertrophy and cardiac strain on his EKG with a mild elevation of his serum troponin. Given these findings patient w as admitted for further evaluation and treatment. Past Medical History Cardiac Medical History: Reports: Hypertension Denies: Coronary Artery Disease Pulmonary Medical History: Denies: Asthma, Chronic Obstructive Pulmonary Disease (COPD) EENT Medical History: Denies: None Neurological Medical History: Denies: Hemorrhagic CVA, Ischemic CVA, Seizures Endocrine Medical History: Denies: Diabetes Mellitus Type 1, Diabetes Mellitus Type 2, Hyperthyroidism, Hypothyroidism Renal/ Medical History: Denies: Chronic Kidney Disease, Nephrolithiasis Malignancy Medical History: Reports: None GI Medical History: Denies: Cirrhosis, Hepatitis Musculoskeltal Medical History: Reports: Gout Denies: Fibromyalgia Skin Medical History: Denies: Eczema, Psoriasis Psychiatric Medical History: Reports: Tobacco Dependency Denies: Alcohol Dependency, Substance Abuse Traumatic Medical History: Reports: None Hematology: Denies: Anemia, Bleeding Tendencies Infectious Medical History: Reports: None Past Surgical History Past Surgical History: Reports: Other - Colonoscopy with polyp removal Social History Information Source: Patient Lives with: Family, Spouse/Significant other Smoking Status: Current Every Day Smoker Frequency of Alcohol Use: Heavy - Drinks one beer daily, occasionally 2. Rarely drinks hard liquor. Hx Recreational Drug Use: No Drugs: None Hx Prescription Drug Abuse: No - Advance Directive Resuscitation Status: Full Code Surrogate healthcare decision maker:: Spouse Family History Family History: Hypertension Parental Family History Reviewed: Yes Children Family History Reviewed: No Sibling(s) Family History Reviewed.: Yes Medication/Allergy Allergies/Adverse Reactions: No Known Allergies Allergy (Verified 06/04/17 13:37) Review of Systems Constitutional: PRESENT: as per HPI, headache(s). ABSENT: chills, fever(s) Eyes: ABSENT: visual disturbances, other - eye pain Ears: ABSENT: hearing changes, other - ear pain Nose, Mouth, and Throat: ABSENT: mouth pain, sore throat Cardiovascular: ABSENT: chest pain, dyspnea on exertion, palpitations Respiratory: ABSENT: cough, dyspnea Gastrointestinal: ABSENT: abdominal pain, constipation, diarrhea, nausea, vom iting Genitourinary: ABSENT: dysuria, hematuria Musculoskeletal: ABSENT: deformity, joint swelling Integumentary: ABSENT: pruritus, rash Neurological: PRESENT: as per HPI, abnormal gait - mild staggering "off balance", dizziness, other - light headed. ABSENT: confusion, convulsions, focal weakness, memory loss, tremor(s) Psychiatric: ABSENT: anxiety, depression Endocrine: ABSENT: cold intolerance, heat intolerance Hematologic/Lymphatic: ABSENT: easy bleeding, easy bruising Physical Exam Vital Signs: Temp Pulse Resp BP Pulse Ox 100 F 92 25 H 200/132 H 89 L 01/04/19 22:02 01/04/19 22:02 01/05/19 00:30 01/05/19 00:30 01/05/19 00:30 Intake & Output 01/03/19 01/04/19 01/05/19 23:59 23:59 23:59 Weight 79.5 kg General appearance: PRESENT: no acute distress, cooperative Head exam: PRESENT: atraumatic, normocephalic Eye exam: PRESENT: conjunctiva pink. ABSENT: scleral icterus Ear exam: PRESENT: normal external ear exam. ABSENT: bleeding, drainage Mouth exam: PRESENT: dry mucosa, neck supple Neck exam: ABSENT: thyromegaly, tracheal deviation Respiratory exam: PRESENT: clear to auscultation nina, symmetrical, unlabored Cardiovascular exam: PRESENT: RRR. ABSENT: clicks, gallop, rubs Pulses: PRESENT: normal radial pulses, normal dorsalis pedis pul Vascular exam: PRESENT: normal capillary refill. ABSENT: pallor GI/Abdominal exam: PRESENT: normal bowel sounds, soft Rectal exam: PRESENT: deferred Extremities exam: ABSENT: joint swelling, pedal edema Musculoskeletal exam: PRESENT: full ROM, normal inspection Neurological exam: PRESENT: alert, awake, oriented to person, oriented to place, oriented to time, oriented to situation, CN II-XII grossly intact. ABSENT: motor sensory deficit Psychiatric exam: PRESENT: appropriate affect, normal mood Skin exam: PRESENT: dry, intact, warm. ABSENT: jaundice, rash, urticaria Results Laboratory Results: 01/04/19 22:42 01/04/19 22:42 01/04/19 01/04/19 22:42 22:42 WBC 7.5 RBC 6.17 H Hgb 18.3 H Hct 54.2 H MCV 88 MCH 29.6 MCHC 33.8 RDW 17.0 H Plt Count 145 L Seg Neutrophils % 73.1 Lymphocytes % 15.7 Monocytes % 10.2 Eosinophils % 0.0 Basophils % 1.0 Absolute Neutrophils 5.5 Absolute Lymphocytes 1.2 Absolute Monocytes 0.8 Absolute Eosinophils 0.0 Absolute Basophils 0.1 Sodium 135.4 L Potassium 3.9 Chloride 94 L Carbon Dioxide 27 Anion Gap 14 BUN 11 Creatinine 0.98 Est GFR ( Amer) > 60 Est GFR (Non-Af Amer) > 60 Glucose 128 H Calcium 9.2 Total Bilirubin 1.1 AST 38 ALT 26 Alkaline Phosphatase 87 Total Protein 8.1 Albumin 4.9 01/04/19 01/04/19 22:42 22:42 Creatine Kinase 142 CK-MB (CK-2) 0.54 Troponin I 0.049 Impressions: Chest X-Ray 01/04/19 22:05 IMPRESSION: No acute cardiopulmonary process copyright 2010 [employer]- All Rights Reserved Head CT 01/04/19 22:05 IMPRESSION: Atrophy with small vessel ischemic change. Remote lacunar infarct right thalamus. TECHNICAL DOCUMENTATION: Quality ID # 436: Final reports with documentation of one or more dose reduction techniques (e.g., Automated exposure control, adjustment of the mA and/or kV according to patient size, use of iterative reconstruction technique) copyright 2011 [employer]- All Rights Reserved Assessment & Plan - Diagnosis (1) Hypertensive emergency Is this a current diagnosis for this admission?: Yes Plan: Patient be treated with IV hydralazine and IV labetalol if available. He will be started on a antihypertensive regiment with lisinopril and additional medications as required for control. (2) LVH (left ventricular hypertrophy) Is this a current diagnosis for this admission?: Yes Plan: Patient's left ventricular hypertrophy will be treated by controlling his underlying hypertension and utilizing lisinopril as part of his therapy due to its positive effect on LVH. (3) Troponin I above reference range Is this a current diagnosis for this admission?: Yes Plan: Patient have serial cardiac enzymes obtained with further evaluation and possible cardiology consultation as appropriate. (4) Alcohol abuse Is this a current diagnosis for this admission?: Yes Plan: Patient has mild alcohol abuse in his use of approximately 1 beer per day. I have counseled the drinking more than 1 or 2 beers per day would be inadvisable and that no level of alcohol use can be medically advised in a hypertensive patient. (5) Medical non-compliance Is this a current diagnosis for this admission?: Yes Plan: I strongly stressed the patient that he must take his antihypertensive medications in order to avoid serious consequences of heart attack, congestive heart failure, stroke or sudden . - Time Time Spent: 30 to 50 Minutes Critical Time spent with patient: Less than 15 minutes Medications reviewed and adjusted accordingly: No - not taking any medications Anticipated discharge: Home - Inpatient Certification Based on my medical assessment, after consideration of the patient's comorbidities, presenting symptoms, or acuity I expect that the services needed warrant INPATIENT care.: Yes I certify that my determination is in accordance with my understanding of Medicare's requirements for reasonable and necessary INPATIENT services [42 CFR 412.3e].: Yes Medical Necessity: Need Close Monitoring Due to Risk of Patient Decompensation, Need For Continuous Telemetry Monitoring, Risk of Complication if Not Cared For in Hospital
[2019-01-05 06:03] LABS: CREATINE KINASE MB 0.55 ng/mL (<4.55)
[2019-01-05 06:07] LABS: TROPONIN I 0.056 ng/mL
[2019-01-05] MEDS: HEPARIN SOD (PORCINE) 5,000 UNIT/ML 1 ML SYRINGE SUBCUT SCH ×3 (07:02→21:56)
[2019-01-05] MEDS: FAMOTIDINE 20 MG TABLET PO SCH ×2 (09:14→21:56)
[2019-01-05] MEDS: LISINOPRIL 10 MG TABLET PO SCH (09:14)
[2019-01-05] MEDS: DOCUSATE SODIUM 100 MG CAPSULE PO SCH ×2 (09:14→17:33)
[2019-01-05] MEDS: NICOTINE 21 MG/24 HR PATCH.TD24 TD PRN (09:18)
--- NOTE | 2019-01-05 10:38 | RADIOLOGY REPORT (SQ) ---
EXAM DESCRIPTION: CAROTID DOPPLER COMPLETED DATE/TIME: 01/05/2019 9:22 am REASON FOR STUDY: staggering gait X 4 days uncontrolled HTN COMPARISON: None. TECHNIQUE: Grayscale ultrasound, Doppler velocity and spectra, and color Doppler images acquired of the extra-cranial carotid and vertebral arteries. Images stored on PACS. LIMITATIONS: None. FINDINGS: RIGHT CAROTID CCA Velocities: Within normal limits. ICA Velocities Peak systolic 47 cm/s. End diastolic 17 cm/s. Proximal ICA/CCA peak systolic ratio 1.05. Spectra normal. No significant plaque. LEFT CAROTID CCA Velocities: Within normal limits. ICA Velocities Peak systolic 75 cm/s. End diastolic 26 cm/s. Proximal ICA/CCA peak systolic ratio 1.11. Spectra normal. No significant plaque. VERTEBRAL ARTERIES: Antegrade flow. Normal waveforms. SUBCLAVIAN ARTERIES: No finding. OTHER: No other significant finding. IMPRESSION: 1. NO HEMODYNAMICALLY SIGNIFICANT STENOSIS. COMMENT: Quality ID #195: Velocity criteria are extrapolated from the diameter data as defined by t he Society of Radiologists in Ultrasound Consensus Conference. Radiology 2003: 229; 340-346. TECHNICAL DOCUMENTATION: JOB ID: [id number] [employer]- All Rights Reserved Reading location - IP/workstation name: [email or web address]
[2019-01-05 11:43] LABS: CREATINE KINASE MB 0.57 ng/mL (<4.55); TROPONIN I 0.036 ng/mL
--- NOTE | 2019-01-05 12:34 | XCELERA REPORT ---
[address] [address] Transthoracic Echocardiogram Report Name: ERNIE DUKES Age: 63 yrs Gender: Male : 1955 Patient Status: Inpatient Patient Location: [facility]^A Study Date: 01/05/2019 09:20 AM Height: 72 in Weight: 175 lb BSA: 2.0 m2 Procedure: A two-dimensional transthoracic echocardiogram with color flow and Doppler was performed. Study Quality: Fair. Reason For Study: staggering gait X 4 days - uncontrolled HTN History: UNCONTROLLED HYPERTENSION. Ordering Physician: KAREN JOE Performed By: Meredith Knight Interpretation Summary The left ventricle is normal in size. There is borderline concentric left ventricular hypertrophy. LV EF is 55 % to 60% The left ventricular ejection fraction is within normal limits. Doppler measurements suggest impaired left ventricular relaxation, which is associated with grade I/IV or mild diastolic dysfunction The left ventricular wall motion is normal. There is no thrombus. The right ventricle is normal in size and function. The right atrium is normal. The left atrial size is normal. There is no evidence of mitral valve prolapse. There is no vegetation seen on the mitral valve. There is no mitral valve stenosis. There is a trace amount of mitral regurgitation There is no aortic valve stenosis There is no LVOT obstruction. There is a mild amount of aortic regurgitation There is no tricuspid stenosis. There is a mild amount of tricuspid regurgitation There is mild pulmonary hypertension by echo RVSP is 30 to 35 mm of Hg , with RA mean of 5 to 10. There is no pulmonic valvular stenosis. There is no pulmonic valvular regurgitation. The aortic root is normal size. The inferior vena cava appeared normal and decreased > 50% with respiration (RAP 5-10 mmHg) There is no pericardial effusion. MMode/2D Measurements & Calculations RVDd: 2.9 cm LVIDd: 4.9 cm FS: 28.0 % Ao root diam: 3.2 cm IVSd: 1.00 cm LVIDs: 3.5 cm EDV(Teich): LVPWd: 1.3 cm 112.0 ml Ao root area: ESV(Teich): 51.5 ml8.3 cm2 EF(Teich): 54.1 % EDV(MOD-sp4): SV(MOD-sp4): 99.4 ml 56.3 ml ESV(MOD-sp4): 43.2 ml EF(MOD-sp4): 56.6 % Doppler Measurements & Calculations MV E max mercy: MV dec slope: Ao V2 max: AI max mercy: 57.5 cm/sec 149.0 cm/sec 351.9 cm/sec MV A max mercy: 386.4 cm/sec2 Ao max PG: AI max P.5 mmHg 69.7 cm/sec MV dec time: 8.9 mmHg AI dec slope: MV E/A: 0.83 0.15 sec 187.4 cm/sec2 AI P1/2t: 550.0 msec LV V1 max PG: PA V2 max: TR max mercy: 4.3 mmHg 76.3 cm/sec 249.2 cm/sec LV V1 max: PA max P.3 mmHg TR max P.8 cm/sec 24.8 mmHg LV dP/dt: 1399 mmHg/s Left Ventricle The left ventricle is normal in size. There is borderline concentric left ventricular hypertrophy. LV EF is 55 % to 60%. The left ventricular ejection fraction is within normal limits. Doppler measurements suggest impaired left ventricular relaxation, which is associated with grade I/IV or mild diastolic dysfunction. The left ventricular wall motion is normal. There is no thrombus. Right Ventricle The right ventricle is normal in size and function. Atria The right atrium is normal. The left atrial size is normal. Mitral Valve There is no evidence of mitral valve prolapse. There is no vegetation seen on the mitral valve. There is no mitral valve stenosis. There is a trace amount of mitral regurgitation. Aortic Valve There is no aortic valvular vegetation. There is no aortic valve stenosis. There is no LVOT obstruction. There is a mild amount of aortic regurgitation. Tricuspid Valve There is no tricuspid stenosis. There is a mild amount of tricuspid regurgitation. There is mild pulmonary hypertension by echo. RVSP is 30 to 35 mm of Hg , with RA mean of 5 to 10. Pulmonic Valve There is no pulmonic valvular stenosis. There is no pulmonic valvular regurgitation. Great Vessels The aortic root is normal size. The inferior vena cava appeared normal and decreased > 50% with respiration (RAP 5-10 mmHg). Effusions There is no pericardial effusion. : KAREN JOE Lakshmi
[2019-01-05 19:18] LABS: CREATINE KINASE MB 0.45 ng/mL (<4.55)
[2019-01-05 19:22] LABS: TROPONIN I 0.025 ng/mL
--- NOTE | 2019-01-05 21:38 | PDOC PROGRESS REPORT ---
Subjective Progress Note for:: 01/05/19 Subjective:: The patient appears to be resting comfortably in bed. He reports that his headache is better. He reports that he was able to walk to the bathroom without difficulty. He also reported several episodes of diarrhea today. Reason For Visit: UNCONTROLLED HYPERTENSION Physical Exam Vital Signs: Temp Pulse Resp BP Pulse Ox 98.7 F 80 18 162/91 H 98 01/05/19 11:48 01/05/19 11:48 01/05/19 11:48 01/05/19 11:48 01/05/19 11:48 Intake & Output 01/04/19 01/05/19 01/06/19 06:59 06:59 06:59 Intake Total 1000 Balance 1000 Weight 76.5 kg General appearance: PRESENT: no acute distress, cooperative, well-developed Head exam: PRESENT: normocephalic Eye exam: PRESENT: conjunctiva pink. ABSENT: scleral icterus Mouth exam: PRESENT: moist, tongue midline Respiratory exam: PRESENT: clear to auscultation nina, symmetrical, unlabored. ABSENT: accessory muscle use, rales, rhonchi, stridor, wheezes Cardiovascular exam: PRESENT: RRR, +S1, +S2, systolic murmur - 2/6 GI/Abdominal exam: PRESENT: normal bowel sounds, soft. ABSENT: distended, tenderness Rectal exam: PRESENT: deferred Gentrourinary exam: ABSENT: indwelling catheter Extremities exam: ABSENT: calf tenderness, pedal edema Musculoskeletal exam: PRESENT: ambulatory Neurological exam: PRESENT: alert, awake, oriented to person, oriented to place, oriented to time, oriented to situation, CN II-XII grossly intact Psychiatric exam: PRESENT: flat affect. ABSENT: agitated, anxious, unusual affect Focused psych exam: ABSENT: delusional, restlessness Results Laboratory Results: 01/04/19 22:42 01/04/19 22:42 01/04/19 01/04/19 01/05/19 22:42 22:42 04:39 WBC 7.5 RBC 6.17 H Hgb 18.3 H Hct 54.2 H MCV 88 MCH 29.6 MCHC 33.8 RDW 17.0 H Plt Count 145 L Seg Neutrophils % 73.1 Lymphocytes % 15.7 Monocytes % 10.2 Eosinophils % 0.0 Basophils % 1.0 Absolute Neutrophils 5.5 Absolute Lymphocytes 1.2 Absolute Monocytes 0.8 Absolute Eosinophils 0.0 Absolute Basophils 0.1 Sodium 135.4 L Potassium 3.9 Chloride 94 L Carbon Dioxide 27 Anion Gap 14 BUN 11 Creatinine 0.98 Est GFR ( Amer) > 60 Est GFR (Non-Af Amer) > 60 Glucose 128 H Calcium 9.2 Total Bilirubin 1.1 AST 38 ALT 26 Alkaline Phosphatase 87 Total Protein 8.1 Albumin 4.9 Urine Color YELLOW Urine Appearance CLEAR Urine pH 5.0 Ur Specific [place] 1.009 Urine Protein 100 H Urine Glucose (UA) NEGATIVE Urine Ketones TRACE H Urine Blood NEGATIVE Urine Nitrite NEGATIVE Ur Leukocyte Esterase NEGATIVE Urine WBC (Auto) 1 Urine RBC (Auto) 0 01/04/19 01/04/19 01/05/19 22:42 22:42 05:18 Creatine Kinase 142 CK-MB (CK-2) 0.54 0.55 Troponin I 0.049 0.056 01/05/19 01/05/19 01/05/19 05:18 11:00 11:00 Creatine Kinase 129 127 CK-MB (CK-2) 0.57 Troponin I 0.036 Impressions: Chest X-Ray 01/04/19 22:05 IMPRESSION: No acute cardiopulmonary process copyright 2010 [employer]- All Rights Reserved Head CT 01/04/19 22:05 IMPRESSION: Atrophy with small vessel ischemic change. Remote lacunar infarct right thalamus. TECHNICAL DOCUMENTATION: Quality ID # 436: Final reports with documentation of one or more dose reduction techniques (e.g., Automated exposure control, adjustment of the mA and/or kV according to patient size, use of iterative reconstruction technique) copyright 2011 [employer]- All Rights Reserved Carotid Doppler Study 01/05/19 00:00 IMPRESSION: 1. NO HEMODYNAMICALLY SIGNIFICANT STENOSIS. Assessment & Plan - Diagnosis (1) Hypertensive emergency Is this a current diagnosis for this admission?: Yes Plan: The patient is feeling better. His blood pressure is improved. He is currently on lisinopril, hydrochlorothiazide and amlodipine. I will monitor his pressure and make adjustments accordingly. His headache is improved. He told me that his "insurance card ". This is why he has not been able to get his medications. I will consult [facility] to assist. (2) Headache Qualifiers: Headache type: unspecified Headache chronicity pattern: episodic headache Intractability: not intractable Qualified Code(s): R51 - Headache Is this a current diagnosis for this admission?: Yes Plan: Hypertensive headache is improved with better blood pressure control. Aceta minophen is available. (3) Troponin I above reference range Is this a current diagnosis for this admission?: Yes Plan: Patient's troponins were above the lower limit of normal. This is most likely strain from the hypertension. (4) Diarrhea Qualifiers: Diarrhea type: unspecified type Qualified Code(s): R19.7 - Diarrhea, unspecified Is this a current diagnosis for this admission?: Yes Plan: We will monitor the patient. This could be just episodic. If it persists we will explore a workup. (5) Medical non-compliance Is this a current diagnosis for this admission?: Yes Plan: Problematic as noted above. I have asked discharge planning/case management to work with the patient regarding his insurance issues. - Time Time Spent with patient: 15-24 minutes Medications reviewed and adjusted accordingly: Yes Anticipated discharge: Home
[2019-01-05] MEDS ORDERED: AMLODIPINE BESYLATE 10 MG TABLET PO SCH (22:00)
[2019-01-06] MEDS: HEPARIN SOD (PORCINE) 5,000 UNIT/ML 1 ML SYRINGE SUBCUT SCH ×2 (05:27→14:32)
[2019-01-06 05:46] LABS: HEMATOCRIT 48.8 % (37.9-51.0); HEMOGLOBIN 16.8 g/dL (13.5-17.0); MEAN CORPUSCULAR HEMOGLOBIN 29.8 pg (27.0-33.4); MEAN CORPUSCULAR HGB CONC 34.4 g/dL (32.0-36.0); MEAN CORPUSCULAR VOLUME 87 fl (80-97); RED BLOOD COUNT 5.63 10^6/uL (4.35-5.55); RED CELL DISTRIBUTION WIDTH 16.8 % (11.5-14.0); WHITE BLOOD COUNT 7.8 10^3/uL (4.0-10.5)
[2019-01-06] MEDS: ACETAMINOPHEN 325 MG TABLET PO PRN ×2 (05:52→12:35)
[2019-01-06 06:08] LABS: ANION GAP 13 (5-19); BLOOD UREA NITROGEN 13 mg/dL (7-20); CARBON DIOXIDE 23 mmol/L (22-30); CHLORIDE 102 mmol/L (98-107); CHOLESTEROL 118.07 mg/dL (0-200); GLUCOSE 117 mg/dL (75-110); POTASSIUM 3.7 mmol/L (3.6-5.0); SODIUM 137.5 mmol/L (137-145); TRIGLYCERIDES 127 mg/dL (<150)
[2019-01-06 06:19] LABS: DIRECT LDL 56 mg/dL (<100)
[2019-01-06 06:23] LABS: FREE T3 3.53 pg/mL (2.77-5.27); FREE T4 (FREE THYROXINE) 1.46 ng/dL (0.78-2.19)
[2019-01-06 06:25] LABS: PLATELET COUNT 126 10^3/uL (150-450)
[2019-01-06 06:36] LABS: THYROID STIMULATING HORMONE 1.95 uIU/mL (0.47-4.68)
[2019-01-06] MEDS ORDERED: HYDROCHLOROTHIAZIDE 12.5 MG TABLET PO SCH (08:00)
[2019-01-06] MEDS: LISINOPRIL 10 MG TABLET PO SCH (09:41)
[2019-01-06] MEDS: FAMOTIDINE 20 MG TABLET PO SCH (09:41)
[2019-01-06] MEDS: DOCUSATE SODIUM 100 MG CAPSULE PO SCH (09:41)
[2019-01-06] MEDS: HYDRALAZINE HCL INJ/PF 20 MG/1 ML SDV IV PRN (12:35)
[2019-01-06] MEDS: NICOTINE 21 MG/24 HR PATCH.TD24 TD PRN (12:45)
[2019-01-06 16:09] VITALS: BP 160/97
[2019-01-06] MEDS ORDERED: AMLODIPINE BESYLATE 10 MG TABLET PO ONE (17:00)
--- NOTE | 2019-01-06 22:45 | PDOC DISCHARGE SUMMARY ---
General - Admit/Disc Date/PCP Admission Date/Primary Care Provider: 01/05/19 01:01 Discharge Date: 01/06/19 - Discharge Diagnosis (1) Hypertensive emergency Is this a current diagnosis for this admission?: Yes Summary: Improved on new medication regimen. I referred the [facility]. He will discharge on lisinopril, hydrochlorothiazide and Norvasc. It is imperative that he follows up with a physician as an outpatient and be compliant with his medications. (2) Headache Is this a current diagnosis for this admission?: Yes Summary: Resolved with blood pressure control (3) Troponin I above reference range Is this a current diagnosis for this admission?: Yes Summary: From cardiac strain due to hypertension (4) Diarrhea Is this a current diagnosis for this admission?: Yes Summary: Resolved (5) Medical non-compliance Is this a current diagnosis for this admission?: Yes Summary: Referred to rule out pharmacy to try to improve compliance. Medications will be bubble packed. He actually showed significant insight as to the high risk for stroke and heart disease with noncompliance. - Additional Information Resuscitation Status: Full Code Discharge Diet: Cardiac Discharge Activity: Activity As Tolerated Prescriptions: Amlodipine Besylate [Norvasc 10 mg Tablet] 10 mg PO QHS 30 Days #30 tablet Hydrochlorothiazide [Hydrodiuril 25 mg Tablet] 25 mg PO QAM #30 tablet Lisinopril 20 mg PO QAM 30 Days #30 tablet Home Medications: Amlodipine Besylate [Norvasc 10 mg Tablet] 10 mg PO QHS 30 Days #30 tablet 01/06/19 Docusate Sodium [Colace 100 mg Capsule] 100 mg PO BID capsule 01/06/19 Hydrochlorothiazide [Hydrodiuril 25 mg Tablet] 25 mg PO QAM #30 tablet 01/06/19 Lisinopril 20 mg PO QAM 30 Days #30 tablet 01/06/19 History of Present Illness Patient complains of: Headache and significant elevation of blood pressure History of Present Illness: ERNIE DUKES is a 63 year old male who presented to the hospital after several days of significant headache. He was found to have markedly elevated blood pressures and was referred to the hospitalists for admission Hospital Course Hospital Course: Unremarkable hospital course. With the administration of hydrochlorothiazide, lisinopril and amlodipine his blood pressure was greatly improved. Continue current medication regimen and follow-up with a primary care provider. Physical Exam Vital Signs: Temp Pulse Resp BP Pulse Ox 101.2 F H 91 18 198/106 H 97 01/06/19 12:32 01/06/19 12:32 01/06/19 12:32 01/06/19 12:32 01/06/19 12:32 Intake & Output 01/05/19 01/06/19 01/07/19 06:59 06:59 06:59 Intake Total 1000 801 Balance 1000 801 Weight 76.5 kg 76.5 kg General appearance: PRESENT: no acute distress, cooperative, well-developed Head exam: PRESENT: normocephalic Ear exam: PRESENT: normal external ear exam Mouth exam: PRESENT: moist, tongue midline Respiratory exam: PRESENT: clear to auscultation nina, symmetrical, unlabored. ABSENT: rales, rhonchi, wheezes Cardiovascular exam: PRESENT: RRR, +S1, +S2 GI/Abdominal exam: PRESENT: normal bowel sounds, soft. ABSENT: distended, gua rding, tenderness Rectal exam: PRESENT: deferred Extremities exam: ABSENT: pedal edema Musculoskeletal exam: PRESENT: ambulatory, normal inspection Neurological exam: PRESENT: alert, awake, oriented to person, oriented to place, oriented to situation, CN II-XII grossly intact Psychiatric exam: PRESENT: appropriate affect, normal mood. ABSENT: agitated, anxious Focused psych exam: ABSENT: delusional, restlessness Results Laboratory Results: 01/06/19 04:58 01/06/19 04:58 01/06/19 01/06/19 01/06/19 04:58 04:58 04:58 WBC 7.8 RBC 5.63 H Hgb 16.8 Hct 48.8 MCV 87 MCH 29.8 MCHC 34.4 RDW 16.8 H Plt Count 126 L Sodium 137.5 Potassium 3.7 Chloride 102 Carbon Dioxide 23 Anion Gap 13 BUN 13 Creatinine 0.96 Est GFR ( Amer) > 60 Est GFR (Non-Af Amer) > 60 Glucose 117 H Calcium 9.0 Magnesium 2.0 Triglycerides 127 Cholesterol 118.07 LDL Cholesterol Direct 56 VLDL Cholesterol 25.0 HDL Cholesterol 45 TSH 1.95 Free T4 1.46 Free T3 pg/mL 3.53 01/04/19 01/04/19 01/05/19 22:42 22:42 05:18 Creatine Kinase 142 CK-MB (CK-2) 0.54 0.55 Troponin I 0.049 0.056 NT-Pro-B Natriuret Pep 01/05/19 01/05/19 01/05/19 05:18 11:00 11:00 Creatine Kinase 129 127 CK-MB (CK-2) 0.57 Troponin I 0.036 NT-Pro-B Natriuret Pep 01/05/19 01/05/19 01/06/19 18:10 18:10 04:58 Creatine Kinase 121 CK-MB (CK-2) 0.45 Troponin I 0.025 NT-Pro-B Natriuret Pep 417 Impressions: Chest X-Ray 01/04/19 22:05 IMPRESSION: No acute cardiopulmonary process copyright 2010 [employer]- All Rights Reserved Head CT 01/04/19 22:05 IMPRESSION: Atrophy with small vessel ischemic change. Remote lacunar infarct right thalamus. TECHNICAL DOCUMENTATION: Quality ID # 436: Final reports with documentation of one or more dose reduction techniques (e.g., Automated exposure control, adjustment of the mA and/or kV according to patient size, use of iterative reconstruction technique) copyright 2011 [employer]- All Rights Reserved Carotid Doppler Study 01/05/19 00:00 IMPRESSION: 1. NO HEMODYNAMICALLY SIGNIFICANT STENOSIS. Qualifiers - * PATIENT BEING DISCHARGED WITH ANY OF THE FOLLOWING DIAGNOSIS: No Plan Discharge Plan: Referred to [facility]. Needs to establish with a primary care provider. Time Spent: Greater than 30 Minutes
[2019-01-07] MEDS ORDERED: AMLODIPINE BESYLATE 10 MG TABLET PO SCH (22:00)
== END 2019-01-06 16:50 | disposition home or self-care (01) | DRG 305 ==
LOC: ER 21:54 → EH 01-05 01:01 → 3N 01-05 06:09
PROVIDERS: ADMIT Emergency Medicine; ATTEND Emergency Medicine
PROC: 3E0234Z Introduction of Serum, Toxoid and Vaccine into Muscle, Percutaneous Approach (ICD-10-PCS; principal; 2019-01-06)
DX: I16.1 Hypertensive emergency (principal); F10.239 Alcohol dependence with withdrawal, unspecified; I10 Essential (primary) hypertension; M10.9 Gout, unspecified; E86.0 Dehydration; R19.7 Diarrhea, unspecified; R51 Headache; F12.90 Cannabis use, unspecified, uncomplicated; F17.210 Nicotine dependence, cigarettes, uncomplicated; Y90.0 Blood alcohol level of less than 20 mg/100 ml; Z23 Encounter for immunization; Z91.14 Patient's other noncompliance with medication regimen
CPT/HCPCS: 36415; 70450; 71045; 80048; 80053; 80061; 80307; 81001; 82550; 82553; 83735; 83880; 84439; 84443; 84481; 84484; 85025; 85027; 85610; 90686; 93005; 93010; 93306; 93880; 96374; 99291; J0360; J1644; J3490; J7120

== ENCOUNTER 2019-06-28 21:31 | Inpatient (IN) | payer MEDICARE, MEDICAID ==
[2019-06-28] MEDS ORDERED: NALOXONE HCL INJ 2 MG/2 ML DISP.SYRIN ONE (21:47)
[2019-06-28 22:04] LABS: HEMATOCRIT 16.5 % (37.9-51.0); MEAN CORPUSCULAR HEMOGLOBIN 28.3 pg (27.0-33.4); MEAN CORPUSCULAR HGB CONC 33.2 g/dL (32.0-36.0); MEAN CORPUSCULAR VOLUME 85 fl (80-97); PLATELET COUNT 442 10^3/uL (150-450); RED BLOOD COUNT 1.94 10^6/uL (4.35-5.55); WHITE BLOOD COUNT 26.2 10^3/uL (4.0-10.5)
[2019-06-28 22:07] LABS: INTERNATIONAL RATION (INR) 1.39; PROTHROMBIN TIME 17.2 SEC (11.4-15.4)
[2019-06-28 22:19] LABS: ABSOLUTE LYMPHOCYTES# (MANUAL) 2.4 10^3/uL (0.5-4.7); ABSOLUTE MONOCYTES # (MANUAL) 1.8 10^3/uL (0.1-1.4); BAND NEUTROPHILS % (MANUAL) 1 % (3-5); BASOPHILS % (MANUAL) 0 % (0-2); EOSINOPHILS % (MANUAL) 0 % (0-6); LYMPHOCYTES % (MANUAL) 9 % (13-45); MONOCYTES % (MANUAL) 7 % (3-13); SEGMENTED NEUTROPHILS % (MAN) 83 % (42-78); TOTAL CELLS COUNTED 100
[2019-06-28 22:22] LABS: ALBUMIN 3.9 g/dL (3.5-5.0); ALKALINE PHOSPHATASE 83 U/L (38-126); ANION GAP 12 (5-19); ASPARTATE AMINO TRANSFERASE 34 U/L (17-59); BILIRUBIN,DIRECT 1.1 mg/dL (0.0-0.4); BILIRUBIN,TOTAL 5.1 mg/dL (0.2-1.3); BLOOD UREA NITROGEN 36 mg/dL (7-20); CALCIUM 8.6 mg/dL (8.4-10.2); CARBON DIOXIDE 31 mmol/L (22-30); CHLORIDE 98 mmol/L (98-107); CREATINE KINASE 356 U/L (55-170); GLUCOSE 190 mg/dL (75-110); TOTAL PROTEIN 7.1 g/dL (6.3-8.2)
[2019-06-28 22:24] LABS: ANISOCYTOSIS SLIGHT; OVALOCYTES SLIGHT; PLATELET COMMENT ADEQUATE; POIKILOCYTOSIS SLIGHT; POLYCHROMASIA SLIGHT
[2019-06-28 22:25] LABS: TARGET CELLS SLIGHT
[2019-06-28 22:30] LABS: HEMOGLOBIN 5.5 g/dL (13.5-17.0)
[2019-06-28] MEDS ORDERED: NORMAL SALINE 250 ML IV PRN (22:30)
[2019-06-28 22:35] LABS: CREATINE KINASE MB 1.02 ng/mL (<4.55)
[2019-06-28 22:41] LABS: TROPONIN I 0.047 ng/mL
--- NOTE | 2019-06-28 22:45 | RADIOLOGY REPORT (SQ) ---
EXAM DESCRIPTION: [facility]: CT HEAD WITHOUT IV CONTRAST CLINICAL HISTORY: 64 years Male; altered mental status, TECHNIQUE: Noncontrast CT head. All CT scans at this facility use dose modulation, iterative reconstruction, and/or weight based dosing when appropriate to reduce radiation dose to as low as reasonably achievable. COMPARISON: 01/04/2019 FINDINGS: Cerebral atrophy is similar to prior exam. Old right thalamic lacunar infarct is again noted. No acute hemorrhage or mass effect. No acute cortical edema. Visualized portions of paranasal sinuses and mastoids are clear. Visualized portions of the calvarium are within normal limits. IMPRESSION: 1. No acute intracranial findings. 2. Mild atrophy and old right thalamic lacunar infarct as seen on 01/04/2019.
--- NOTE | 2019-06-28 23:18 | RADIOLOGY REPORT (SQ) ---
EXAM DESCRIPTION: XR CHEST 1 VIEW COMPLETED DATE/TME: 06/28/2019 00:00 CLINICAL HISTORY: 64 years, Male, decreased breath sounds COMPARISON: Prior study from 01/04/2019 NUMBER OF VIEWS: One TECHNIQUE: Single frontal view of the chest was obtained portably. LIMITATIONS: None. FINDINGS: Cardiac and mediastinal contours are stable. Patchy multifocal bilateral airspace disease is noted, most pronounced within left mid to lower lung zones. No pneumothorax or large pleural effusion. IMPRESSION: Multifocal bilateral airspace disease, suspicious for multifocal pneumonia. Recommend follow-up to clearing. copyright 2010 [employer]- All Rights Reserved
[2019-06-28] MEDS ORDERED: CEFEPIME 2 GM/D5W RTU 2 GM/50 ML RTUPB IV ONE (23:33)
[2019-06-29 00:04] LABS: VENOUS BLOOD BASE EXCESS 5.7 mmol/L; VENOUS BLOOD HCO3 28.5 mmol/L (20-32); VENOUS BLOOD PCO2 33.3 mmHg (35-63); VENOUS BLOOD PH 7.55 (7.30-7.42)
[2019-06-29] MEDS: NORMAL SALINE 1000 ML 1,000 ML IV PRN ×2 (00:44→01:15)
[2019-06-29] MEDS ORDERED: POTASSIUM CHLORIDE 20 MEQ PACKET PO ONE (02:09)
[2019-06-29 02:20] LABS: APPEARANCE,URINE SLIGHTLY-CLOUDY; BILIRUBIN,URINE NEGATIVE (NEGATIVE); COLOR,URINE AMBER; GLUCOSE, URINE NEGATIVE (NEGATIVE); KETONES,URINE NEGATIVE (NEGATIVE); LEUKOCYTE ESTERASE,URINE NEGATIVE (NEGATIVE); NITRITE,URINE NEGATIVE (NEGATIVE); PROTEIN,URINE 100 mg/dL (NEGATIVE); URINE SPECIFIC GRAVITY 1.017
--- NOTE | 2019-06-29 02:41 | ER Document Report ---
ED General - General Chief Complaint: General Weakness Stated Complaint: WEAKNESS Time Seen by Provider: 06/28/19 21:54 TRAVEL OUTSIDE OF THE [place] IN LAST 30 DAYS: No - HPI Notes: Patient is a 64-year-old male, brought in for evaluation by family. Family members are primary historians. Evidently for the last 3 days has been unsteady on his feet. He has been coughing. He seems weak, not wanting to eat or drink. He has not been wanting to take his medications. They were finally able to convince him to come to the emergency department tonight. Unsure as to whether or not he was having any fevers. - Related Data Allergies/Adverse Reactions: grass pollen Allergy (Verified 01/05/19 08:01) tree and shrub pollen Allergy (Verified 01/05/19 08:01) Past Medical History - General Information source: Relative - Social History Smoking Status: Current Every Day Smoker Frequency of alcohol use: Daily beer, usually 1 or 2 Family History: Hypertension Patient has suicidal ideation: No Patient has homicidal ideation: No - Past Medical History Cardiac Medical History: Reports: Hx Hypertension Denies: Hx Coronary Artery Disease Pulmonary Medical History: Denies: Hx Asthma, Hx COPD Neurological Medical History: Reports: Hx Cerebrovascular Accident Endocrine Medical History: Denies: Hx Diabetes Mellitus Type 1, Hx Hyperthyroidism, Hx Hypothyroidism Renal/ Medical History: Denies: Hx Peritoneal Dialysis GI Medical History: Denies: Hx Cirrhosis, Hx Hepatitis Musculoskeletal Medical History: Denies Hx Fibromyalgia, Reports Hx Gout Skin Medical History: Denies Hx Eczema, Denies Hx Psoriasis Psychiatric Medical History: Comment Only: Hx Depression - anxiety Infectious Medical History: Denies: Hx Hepatitis Past Surgical History: Reports: Hx Bowel Surgery - Colonoscopy with polyp removal 2004, Other - Colonoscopy with polyp removal - Immunizations Immunizations up to date: Yes Hx Diphtheria, Pertussis, Tetanus Vaccination: Yes Review of Systems - Review of Systems -: Yes ROS unobtainable due to patient's medical condition Physical Exam - Vital signs Vitals: Temp Pulse Resp BP Pulse Ox 99.1 F 97 18 142/88 H 98 06/28/19 21:41 06/28/19 21:41 06/28/19 21:41 06/28/19 21:41 06/28/19 21:41 - Notes Notes: This is a 64-year-old male who appears his stated age, no distress. He is in termittently moaning. He will open his eyes to verbal stimuli, follow commands. Head is normocephalic and atraumatic. Pupils are equal round, reactive to light. Oral mucosa is moist. Heart is mildly tachycardic with normal S1-S2. Lungs show rhonchi and occasional wheezes at bilateral bases. Abdomen is soft, nontender, normoactive bowel sounds. Skin is warm and dry. Patient is drowsy but easily arouses. He will follow commands, moves all 4 extremities spontaneously. No gross facial asymmetry. Extremities without cyanosis or clubbing. No posterior calf tenderness. Skin is warm and dry. Course - Re-evaluation Re-evalutation: 06/29/19 02:39 Patient presents emergency department for evaluation. Because of his reported history of a CVA per family members, patient was brought back, and concern for CVA was elicited. We did go ahead and order CT scan, she was found to be unremarkable. Laboratory investigations did reveal significant leukocytosis, as well as a significant anemia. Type and cross for 2 units was placed. Given his leukocytosis, blood cultures and lactate were ordered. He was given IV fluids. This patient is given 2 units of blood, so is only ordered 2 L of fluids, and an effort to avoid fluid overload. I ordered IV cefepime to cover for his pneumonia. Urinalysis was obtained, found to have blood. Urine culture is pending. This likely could be secondary to this being a catheterized specimen. Patient remains on the monitor. His heart rate is in the 90s. He is oxygenating well. His blood pressure is stable. Will contact medicine for admission. - Vital Signs Vital signs: Temp Pulse Resp BP Pulse Ox 98.3 F 92 21 H 141/89 H 94 06/29/19 01:52 06/29/19 02:01 06/29/19 02:01 06/29/19 02:01 06/29/19 02:01 - Laboratory Result Diagrams: 06/28/19 21:50 06/28/19 21:50 Laboratory results interpreted by me: 06/28/19 06/28/19 06/28/19 21:50 21:50 21:50 WBC 26.2 H RBC 1.94 L Hgb 5.5 L Hct 16.5 L RDW 15.0 H Seg Neuts % (Manual) 83 H Band Neutrophils % 1 L Lymphocytes % (Manual) 9 L Abs Neuts (Manual) 22.0 H Abs Monocytes (Manual) 1.8 H PT 17.2 H VBG pH VBG pCO2 Potassium 3.0 L* Carbon Dioxide 31 H BUN 36 H Glucose 190 H POC Glucose Lactic Acid Total Bilirubin 5.1 H Direct Bilirubin 1.1 H Creatine Kinase 356 H Urine Protein Urine Blood Urine Urobilinogen Crossmatch 06/28/19 06/28/19 06/28/19 21:50 21:50 21:50 WBC RBC Hgb Hct RDW Seg Neuts % (Manual) Band Neutrophils % Lymphocytes % (Manual) Abs Neuts (Manual) Abs Monocytes (Manual) PT VBG pH 7.55 H VBG pCO2 33.3 L Potassium Carbon Dioxide BUN Glucose POC Glucose Lactic Acid 3.6 H Total Bilirubin Direct Bilirubin Creatine Kinase Urine Protein Urine Blood Urine Urobilinogen Crossmatch See Detail 06/28/19 06/29/19 21:51 01:05 WBC RBC Hgb Hct RDW Seg Neuts % (Manual) Band Neutrophils % Lymphocytes % (Manual) Abs Neuts (Manual) Abs Monocytes (Manual) PT VBG pH VBG pCO2 Potassium Carbon Dioxide BUN Glucose POC Glucose 226 H Lactic Acid Total Bilirubin Direct Bilirubin Creatine Kinase Urine Protein 100 H Urine Blood LARGE H Urine Urobilinogen 4.0 H Crossmatch - Diagnostic Test Radiology reviewed: Reports reviewed Radiology results interpreted by me: 06/29/19 02:41 Chest X-Ray 06/28/19 00:00 IMPRESSION: Multifocal bilateral airspace disease, suspicious for multifocal pneumonia. Recommend follow-up to clearing. copyright 2010 [employer]- All Rights Reserved Head CT 06/28/19 21:55 IMPRESSION: 1. No acute intracranial findings. 2. Mild atrophy and old right thalamic lacunar infarct as seen on 01/04/2019. Discharge - Discharge Clinical Impression: Hypokalemia Pneumonia Qualifiers: Pneumonia type: due to unspecified organism Laterality: bilateral Lung location: lower lobe of lung Qualified Code(s): J18.1 - Lobar pneumonia, unspeci fied organism Sepsis Qualifiers: Sepsis acute organ dysfunction status: unspecified Anemia Qualifiers: Anemia type: unspecified type Qualified Code(s): D64.9 - Anemia, unspecified Condition: Stable Disposition: ADMITTED INPATIENT Admitting Provider: Baudilio (Hospitalist) Unit Admitted: [facility]
[2019-06-29] MEDS ORDERED: IPRATROPIUM/ALBUTEROL 0.5-2.5 MG/3 ML AMPUL NEB PRN (02:54)
[2019-06-29] MEDS ORDERED: GUAIFENESIN SYRP 200 MG/10 ML UDC PO PRN (02:54)
[2019-06-29] MEDS ORDERED: AZITHROMYCIN INJ 500 MG VIAL IV PRN (03:13)
[2019-06-29 03:43] LABS: IRON(TIBC) 168.3 ug/dL (49-181)
[2019-06-29 03:51] LABS: ABSOLUTE RETICS # 0.088 10^6/uL (0.028-0.122); RETICULOCYTE COUNT (AUTO) 4.92 % (0.66-2.85)
[2019-06-29 03:58] LABS: HEMATOCRIT 17.3 % (37.9-51.0); MEAN CORPUSCULAR HEMOGLOBIN 30.4 pg (27.0-33.4); MEAN CORPUSCULAR HGB CONC 34.5 g/dL (32.0-36.0); MEAN CORPUSCULAR VOLUME 88 fl (80-97); PLATELET COUNT 392 10^3/uL (150-450); RED BLOOD COUNT 1.97 10^6/uL (4.35-5.55); RED CELL DISTRIBUTION WIDTH 14.4 % (11.5-14.0); WHITE BLOOD COUNT 27.5 10^3/uL (4.0-10.5)
[2019-06-29 04:37] LABS: ABSOLUTE LYMPHOCYTES# (MANUAL) 7.7 10^3/uL (0.5-4.7); ABSOLUTE MONOCYTES # (MANUAL) 0.8 10^3/uL (0.1-1.4); BASOPHILS % (MANUAL) 0 % (0-2); EOSINOPHILS % (MANUAL) 0 % (0-6); LYMPHOCYTES % (MANUAL) 28 % (13-45); MONOCYTES % (MANUAL) 3 % (3-13); SEGMENTED NEUTROPHILS % (MAN) 69 % (42-78); TOTAL CELLS COUNTED 100
[2019-06-29 04:38] LABS: ANISOCYTOSIS SLIGHT; TOXIC GRANULATION SLIGHT; TOXIC VACUOLATION PRESENT
[2019-06-29 04:39] LABS: OVALOCYTES SLIGHT; PLATELET COMMENT ADEQUATE
[2019-06-29 05:05] LABS: ANION GAP 10 (5-19); BLOOD UREA NITROGEN 35 mg/dL (7-20); CALCIUM 7.5 mg/dL (8.4-10.2); CARBON DIOXIDE 28 mmol/L (22-30); CHLORIDE 105 mmol/L (98-107); GLUCOSE 130 mg/dL (75-110); POTASSIUM 3.6 mmol/L (3.6-5.0)
[2019-06-29] MEDS ORDERED: AZITHROMYCIN 500 MG in DEXTROSE 5%-WATER 250 ML IV SCH ×2 (06:00→09:00)
[2019-06-29] MEDS ORDERED: HEPARIN SOD (PORCINE) 5,000 UNIT/ML 1 ML VIAL SUBCUT SCH (06:00)
--- NOTE | 2019-06-29 06:22 | PDOC H&P ---
History of Present Illness Admission Date/PCP: 06/29/19 03:09 Patient complains of: Weakness and shortness of breath History of Present Illness: ERNIE DUKES is a 64 year old male with a past medical history of hypertension, alcoholism, tobacco dependence, CVA with residual memory deficit. He presents with his who is able to provide limited history as he is a poor historian. He has had several months of fatigue, poor appetite, weight loss and blood in the toilet of unclear origin. Over the last week he has had trouble walking, shortness of breath and a nonproductive cough prompting evaluation emergency room where he is found to have leukocytosis, bilateral infiltrate, hemoglobin of 5.5, jaundice and a total bilirubin of 5. He receives empiric antibiotics and referred to the hospitalist for admission. Patient has been without regular medical care or current medications for undetermined duration. Past Medical History Cardiac Medical History: Reports: Hypertension Denies: Coronary Artery Disease Pulmonary Medical History: Denies: Asthma, Chronic Obstructive Pulmonary Disease (COPD) Endocrine Medical History: Denies: Diabetes Mellitus Type 1, Hyperthyroidism, Hypothyroidism GI Medical History: Denies: Cirrhosis, Hepatitis Musculoskeltal Medical History: Reports: Gout Denies: Fibromyalgia Skin Medical History: Denies: Eczema, Psoriasis Psychiatric Medical History: Reports: Tobacco Dependency Comment Only: Depression - anxiety Hematology: Denies: Anemia, Bleeding Tendencies Past Surgical History Past Surgical History: Reports: Other - Colonoscopy with polyp removal Social History Information Source: Patient Lives with: Spouse/Significant other Smoking Status: Current Every Day Smoker Number of Years Smokin Frequency of Alcohol Use: Occasional Hx Recreational Drug Use: No Drugs: None Hx Prescription Drug Abuse: No - Advance Directive Resuscitation Status: Full Code Family History Family History: Hypertension, Other - Mother with unknown malignancy Parental Family History Reviewed: Yes Children Family History Reviewed: Yes Sibling(s) Family History Reviewed.: Yes Medication/Allergy Home Medications: Amlodipine Besylate [Norvasc 10 mg Tablet] 10 mg PO QHS 30 Days #30 tablet 01/06/19 Docusate Sodium [Colace 100 mg Capsule] 100 mg PO BID capsule 01/06/19 Hydrochlorothiazide [Hydrodiuril 25 mg Tablet] 25 mg PO QAM #30 tablet 01/06/19 Lisinopril 20 mg PO QAM 30 Days #30 tablet 01/06/19 Allergies/Adverse Reactions: grass pollen Allergy (Verified 01/05/19 08:01) tree and shrub pollen Allergy (Verified 01/05/19 08:01) Review of Systems ROS unobtainable: Due to mental status Physical Exam Vital Signs: Temp Pulse Resp BP Pulse Ox 98.5 F 97 30 H 157/86 H 96 06/29/19 05:57 06/29/19 05:57 06/29/19 05:57 06/29/19 05:57 06/29/19 05:57 Intake & Output 06/27/19 06/28/19 06/29/19 11:59 11:59 11:59 Intake Total 1867 Balance 1867 Weight 72.1 kg General appearance: PRESENT: cooperative, disheveled, mild distress, thin, well- developed, well-nourished, other - Appears older than his stated age, pale, chronically ill-appearing temporal wasting Head exam: PRESENT: atraumatic, normocephalic Eye exam: PRESENT: conjunctiva pale, EOMI, PERRLA, scleral icterus Ear exam: PRESENT: normal external ear exam Mouth exam: PRESENT: moist, tongue midline Neck exam: ABSENT: carotid bruit, JVD, lymphadenopathy, thyromegaly Respiratory exam: PRESENT: accessory muscle use, prolonged expiratory phas, rales, rhonchi, symmetrical Cardiovascular exam: PRESENT: RRR, +S1, +S2 Pulses: PRESENT: normal dorsalis pedis pul Vascular exam: PRESENT: normal capillary refill GI/Abdominal exam: PRESENT: normal bowel sounds, soft. ABSENT: distended, guarding, mass, organolmegaly, rebound, tenderness Rectal exam: PRESENT: deferred Extremities exam: PRESENT: full ROM, other - Generalized muscular atrophy. ABSENT: calf tenderness, clubbing, pedal edema Musculoskeletal exam: PRESENT: other - Generalized muscular atrophy without fasciculation. ABSENT: tenderness Neurological exam: PRESENT: alert, altered, oriented to person, CN II-XII grossly intact Psychiatric exam: PRESENT: appropriate affect, normal mood. ABSENT: homicidal ideation, suicidal ideation Skin exam: PRESENT: dry, intact, warm. ABSENT: cyanosis, rash Results Laboratory Results: 06/29/19 03:45 06/29/19 03:45 06/28/19 06/28/19 06/28/19 21:50 21:50 21:50 WBC 26.2 H RBC 1.94 L Hgb 5.5 L Hct 16.5 L MCV 85 MCH 28.3 MCHC 33.2 RDW 15.0 H Plt Count 442 Seg Neutrophils % Not Reportable Retic Count (auto) VBG pH VBG pCO2 VBG HCO3 VBG Base Excess Sodium 141.3 Potassium 3.0 L* Chloride 98 Carbon Dioxide 31 H Anion Gap 12 BUN 36 H Creatinine 1.05 Est GFR ( Amer) > 60 Glucose 190 H Lactic Acid Calcium 8.6 Iron TIBC % Saturation Ferritin Total Bilirubin 5.1 H AST 34 Alkaline Phosphatase 83 Total Protein 7.1 Albumin 3.9 Vitamin B12 Folate Urine Color Urine Appearance Urine pH Ur Specific [place] Urine Protein Urine Glucose (UA) Urine Ketones Urine Blood Urine Nitrite Ur Leukocyte Esterase Urine WBC (Auto) Urine RBC (Auto) Blood Type O POSITIVE Antibody Screen NEGATIVE 06/28/19 06/28/19 06/28/19 21:50 21:50 21:50 WBC RBC Hgb Hct MCV MCH MCHC RDW Plt Count Seg Neutrophils % Retic Count (auto) 4.92 H VBG pH 7.55 H VBG pCO2 33.3 L VBG HCO3 28.5 VBG Base Excess 5.7 Sodium Potassium Chloride Carbon Dioxide Anion Gap BUN Creatinine Est GFR ( Amer) Glucose Lactic Acid 3.6 H Calcium Iron TIBC % Saturation Ferritin Total Bilirubin AST Alkaline Phosphatase Total Protein Albumin Vitamin B12 Folate Urine Color Urine Appearance Urine pH Ur Specific [place] Urine Protein Urine Glucose (UA) Urine Ketones Urine Blood Urine Nitrite Ur Leukocyte Esterase Urine WBC (Auto) Urine RBC (Auto) Blood Type Antibody Screen 06/29/19 06/29/19 06/29/19 00:20 01:05 03:45 WBC 27.5 H RBC 1.97 L Hgb 6.0 L Hct 17.3 L MCV 88 MCH 30.4 MCHC 34.5 RDW 14.4 H Plt Count 392 Seg Neutrophils % Not Reportable Retic Count (auto) VBG pH VBG pCO2 VBG HCO3 VBG Base Excess Sodium Potassium Chloride Carbon Dioxide Anion Gap BUN Creatinine Est GFR ( Amer) Glucose Lactic Acid Calcium Iron 168.3 TIBC 201 L % Saturation 84 Ferritin 6190.00 H Total Bilirubin AST Alkaline Phosphatase Total Protein Albumin Vitamin B12 335.0 Folate 11.60 Urine Color GLORIA Urine Appearance SLIGHTLY-CLOUDY Urine pH 5.0 Ur Specific [place] 1.017 Urine Protein 100 H Urine Glucose (UA) NEGATIVE Urine Ketones NEGATIVE Urine Blood LARGE H Urine Nitrite NEGATIVE Ur Leukocyte Esterase NEGATIVE Urine WBC (Auto) 3 Urine RBC (Auto) 0 Blood Type Antibody Screen 06/29/19 06/29/19 03:45 03:45 WBC RBC Hgb Hct MCV MCH MCHC RDW Plt Count Seg Neutrophils % Retic Count (auto) VBG pH VBG pCO2 VBG HCO3 VBG Base Excess Sodium 142.5 Potassium 3.6 Chloride 105 Carbon Dioxide 28 Anion Gap 10 BUN 35 H Creatinine 0.91 Est GFR ( Amer) > 60 Glucose 130 H Lactic Acid 1.4 Calcium 7.5 L Iron TIBC % Saturation Ferritin Total Bilirubin AST Alkaline Phosphatase Total Protein Albumin Vitamin B12 Folate Urine Color Urine Appearance Urine pH Ur Specific [place] Urine Protein Urine Glucose (UA) Urine Ketones Urine Blood Urine Nitrite Ur Leukocyte Esterase Urine WBC (Auto) Urine RBC (Auto) Blood Type Antibody Screen 06/28/19 06/28/19 21:50 21:50 Creatine Kinase 356 H CK-MB (CK-2) 1.02 Troponin I 0.047 Impressions: Chest X-Ray 06/28/19 00:00 IMPRESSION: Multifocal bilateral airspace disease, suspicious for multifocal pneumonia. Recommend follow-up to clearing. copyright 2010 [employer]- All Rights Reserved Head CT 06/28/19 21:55 IMPRESSION: 1. No acute intracranial findings. 2. Mild atrophy and old right thalamic lacunar infarct as seen on 01/04/2019. Assessment and Plan - Diagnosis (1) Pneumonia Qualifiers: Pneumonia type: due to unspecified organism Laterality: bilateral Lung location: lower lobe of lung Qualified Code(s): J18.1 - Lobar pneumonia, unspecified organism Is this a current diagnosis for this admission?: Yes Plan: Empiric antibiotics initiated, high risk for lung cancer given greater than 50 pack years. Follow-up CT chest, CBC and blood culture. (2) Anemia Qualifiers: Anemia type: unspecified type Qualified Code(s): D64.9 - Anemia, unspecified Is this a current diagnosis for this admission?: Yes Plan: Family reports blood in the toilet unclear source, 2 units of packed red blood cells ordered, urinalysis positive for blood, follow-up LDH, CEA, PSA, posttransfusion CBC anemia work-up, consider GI or urology consult (3) Hypokalemia Is this a current diagnosis for this admission?: Yes Plan: Replete and follow-up magnesium and chemistry (4) Sepsis Qualifiers: Sepsis acute organ dysfunction status: unspecified Is this a current diagnosis for this admission?: Yes Plan: Secondary to #1, follow-up lactic acid and CBC (5) Alcohol abuse Is this a current diagnosis for this admission?: Yes Plan: Thiamine ordered, consider Ativan as needed withdrawal symptoms (6) Weight loss Is this a current diagnosis for this admission?: Yes Plan: Concern for occult malignancy given tobacco history, follow-up CT chest, CEA and PSA - Time Time Spent with patient: 35 or more minutes - Inpatient Certification Medical Necessity: Need Close Monitoring Due to Risk of Patient Decompensation
[2019-06-29 07:01] LABS: CARCINOEMBRYONIC ANTIGEN 4.1 ng/mL (<3.0); PROSTATE SPECIFIC ANTIGEN 4.43 ng/mL (<4.00)
--- NOTE | 2019-06-29 07:08 | EKG REPORT ---
SEVERITY:- ABNORMAL ECG - SINUS RHYTHM LEFT VENTRICULAR HYPERTROPHY BORDERLINE T ABNORMALITIES, INFERIOR LEADS : Confirmed by: Joey Finch MD 29-Jun-2019 07:08:07
[2019-06-29] MEDS: IPRATROPIUM/ALBUTEROL 0.5-2.5 MG/3 ML AMPUL NEB SCH ×3 (07:53→19:53)
[2019-06-29] MEDS ORDERED: LORAZEPAM INJ 2 MG/1 ML VIAL ONE ×2 (08:23→13:22)
[2019-06-29] MEDS ORDERED: LORAZEPAM INJ 2 MG/1 ML VIAL IV ONE (08:45)
[2019-06-29] MEDS ORDERED: THIAMINE HCL 100 MG TABLET PO SCH (10:00)
[2019-06-29] MEDS ORDERED: FOLIC ACID 1 MG TABLET PO SCH (10:00)
[2019-06-29] MEDS ORDERED: CEFEPIME HCL 2 GM in DEXTROSE 5%-WATER 50 ML IV SCH (10:00)
[2019-06-29] MEDS ORDERED: CEFEPIME 2 GM/D5W RTU 2 GM/50 ML RTUPB IV SCH (10:00)
[2019-06-29] MEDS: FLUTICASONE NASAL SPRAY 50 MCG/SPRY 120 SPRAY/16 GM NASL SCH ×2 (11:01→21:15)
--- NOTE | 2019-06-29 14:11 | RADIOLOGY REPORT (SQ) ---
EXAM DESCRIPTION: CT CHEST WITH; CT ABD/PELVIS WITH IV ONLY COMPLETED DATE/TIME: 06/29/2019 1:50 pm; 06/29/2019 1:51 pm REASON FOR STUDY: weight loss, 50 pk yrs; Intra-abdominal malignancy COMPARISON: None. CONTRAST TYPE AND DOSE: contrast/concentration: Isovue 350.00 mg/ml; Total Contrast Delivered: 82.0 ml; Total Saline Delivered: 62.0 ml RENAL FUNCTION: GFR > 60. TECHNIQUE: CT scan of the chest performed using helical scanning technique with dynamic intravenous contrast injection. Images reviewed with lung, soft tissue and bone windows. Reconstructed coronal a nd sagittal MPR images reviewed. All images stored on PACS. CT scan of the abdomen and pelvis performed with intravenous and with oral contrastusing helical scan sebastian technique with dynamic intravenous contrast injection. Images reviewed with lung, soft tissue a nd bone windows. Reconstructed coronal and sagittal MPR images reviewed. Delayed images for evaluat ion of the urinary system also acquired and evaluated. All images stored on PACS. All CT scanners at this facility use dose modulation, iterative reconstruction, and/or weight based d osing when appropriate to reduce radiation dose to as low as reasonably achievable (ALARA). [facility]: Dose Right [facility]: CareDose [facility]: Dose Right [facility]: Teradose 4D [facility]: [employer] RADIATION DOSE: CT Rad equipment meets quality standard of care and radiation dose reduction techniq ues were employed. CTDIvol: 7.2 - 9.3 mGy. DLP: 1299 mGy-cm. . LIMITATIONS: Breath motion artifact FINDINGS: CHEST: LUNGS AND PLEURA: There is extensive bilateral multifocal ground-glass pulmonary opacity and trace bi lateral pleural effusions. There is atelectasis or consolidation of the lingula. HILAR AND MEDIASTINAL STRUCTURES: No identified masses or abnormal nodes. HEART AND VASCULAR STRUCTURES: No aneurysm or dissection. No central pulmonary emboli. No pericardi al effusion. HARDWARE: None. THYROID AND OTHER SOFT TISSUES: No masses. No adenopathy. BONES: No significant finding. OTHER: No other significant finding. ABDOMEN AND PELVIS: LIVER: Normal size. No masses. No dilated ducts. SPLEEN: Normal size. No focal lesions. PANCREAS: No masses. No significant calcifications. No adjacent inflammation or peripancreatic fluid collections. Pancreatic duct not dilated. GALLBLADDER: No identified stones by CT criteria. No inflammatory changes to suggest cholecystitis. ADRENAL GLANDS: 1.2 cm soft tissue attenuation nodule of the left adrenal gland. RIGHT KIDNEY AND URETER: No solid masses. No significant calcification. No hydronephrosis or hydroure ter. LEFT KIDNEY AND URETER: No solid masses. No significant calcification. No hydronephrosis or hydrouret er. AORTA AND VESSELS: No aneurysm. No dissection. Renal arteries, SMA, celiac without stenosis. Calcifi c atherosclerosis. RETROPERITONEUM: No retroperitoneal adenopathy, hemorrhage or masses. BOWEL AND PERITONEAL CAVITY: No masses or inflammatory changes. No free fluid or peritoneal masses. Sigmoid diverticulosis without evidence of acute diverticulitis. APPENDIX: Normal. ABDOMINAL WALL: No masses. No hernias. PELVIS: No mass or free fluid. Mclean catheter in the urinary bladder. Prostatomegaly. BONES: No significant or acute findings. OTHER: No other significant finding. IMPRESSION: 1. Extensive multifocal bilateral ground-glass pulmonary opacity and trace bilateral pl eural effusions, likely reflecting multifocal infection. 2. Consolidation of the lingula, which may be additionally related to infection. 3. No acute CT abnormality of the abdomen or pelvis. 4. There is a 1.2 cm incidental indeterminate nodule of the left adrenal gland. Consider follow-up adrenal protocol CT in 12 months to ensure stability. TECHNICAL DOCUMENTATION: JOB ID: [id number] Quality ID # [id number]: Final reports with documentation of one or more dose reduction techniques (e.g., Au tomated exposure control, adjustment of the mA and/or kV according to patient size, use of iterative reconstruction technique) 2010 [employer]- All Rights Reserved Reading location - IP/workstation name: [email or web address]
[2019-06-29] MEDS ORDERED: THIAMINE HCL 100 MG, FOLIC ACID 1 MG in NORMAL SALINE 250 ML IV ONE (14:30)
[2019-06-29] MEDS: PIPERACILLIN SODIUM/TAZOBACTAM 4.5 GM in NORMAL SALINE 100 ML IV SCH ×3 (14:35→23:48)
--- NOTE | 2019-06-29 15:02 | PDOC PROGRESS REPORT ---
Subjective Progress Note for:: 06/29/19 Subjective:: This is 64 years old black male patient was past medical history of gout, hypertension, history of alcohol abuse, tobacco dependence and cerebrovascular accident with residual memory deficit, brought with chief complaint of loss of appetite progressive weight loss weakness and shortness of breath. He has had several months of fatigue, poor appetite, weight loss and blood in the toilet of unclear origin. I reviewed his medications and blood work and imaging studies. His his white cell count is elevated at 27,000 and hemoglobin of 5.5. After 2 units of blood transfusion hemoglobin increased to 6. His CT scan of the chest reported as extensive multifocal bilateral groundglass pulmonary opacities and trace bilateral effusion. He has also consolidation of the lingula. At bedside examination patient is awake alert but confused, agitated and try to pull out his IV lines. He is visibly icteric. He has coarse crepitation on both lung anguiano. Reason For Visit: ANEMIA,SEPSIS,AMS,PNEUMONIA Physical Exam Vital Signs: Temp Pulse Resp BP Pulse Ox 97.5 F 93 16 146/79 H 92 06/29/19 12:02 06/29/19 14:20 06/29/19 14:20 06/29/19 12:02 06/29/19 14:20 Intake & Output 06/28/19 06/29/19 06/30/19 06:59 06:59 06:59 Intake Total 1867 600 Output Total 0 Balance 1867 600 Weight 74.1 kg General appearance: PRESENT: mild distress Head exam: PRESENT: atraumatic Eye exam: PRESENT: scleral icterus Neck exam: ABSENT: carotid bruit, JVD, lymphadenopathy, thyromegaly Respiratory exam: PRESENT: crackles, decreased breath sounds - Bilaterally Cardiovascular exam: PRESENT: RRR. ABSENT: diastolic murmur, rubs, systolic murmur GI/Abdominal exam: PRESENT: normal bowel sounds, soft. ABSENT: distended, guarding, mass, organolmegaly, rebound, tenderness Neurological exam: PRESENT: alert Psychiatric exam: PRESENT: agitated Results Laboratory Results: 06/29/19 03:45 06/29/19 03:45 06/28/19 06/28/19 06/28/19 21:50 21:50 21:50 WBC 26.2 H RBC 1.94 L Hgb 5.5 L Hct 16.5 L MCV 85 MCH 28.3 MCHC 33.2 RDW 15.0 H Plt Count 442 Seg Neutrophils % Not Reportable Retic Count (auto) VBG pH VBG pCO2 VBG HCO3 VBG Base Excess Sodium 141.3 Potassium 3.0 L* Chloride 98 Carbon Dioxide 31 H Anion Gap 12 BUN 36 H Creatinine 1.05 Est GFR ( Amer) > 60 Glucose 190 H Lactic Acid Calcium 8.6 Iron TIBC % Saturation Ferritin Total Bilirubin 5.1 H AST 34 Alkaline Phosphatase 83 Total Protein 7.1 Albumin 3.9 Lipase Prostate Specific Ag Vitamin B12 Folate TSH Urine Color Urine Appearance Urine pH Ur Specific [place] Urine Protein Urine Glucose (UA) Urine Ketones Urine Blood Urine Nitrite Ur Leukocyte Esterase Urine WBC (Auto) Urine RBC (Auto) Blood Type O POSITIVE Antibody Screen NEGATIVE 06/28/19 06/28/19 06/28/19 21:50 21:50 21:50 WBC RBC Hgb Hct MCV MCH MCHC RDW Plt Count Seg Neutrophils % Retic Count (auto) 4.92 H VBG pH 7.55 H VBG pCO2 33.3 L VBG HCO3 28.5 VBG Base Excess 5.7 Sodium Potassium Chloride Carbon Dioxide Anion Gap BUN Creatinine Est GFR ( Amer) Glucose Lactic Acid 3.6 H Calcium Iron TIBC % Saturation Ferritin Total Bilirubin AST Alkaline Phosphatase Total Protein Albumin Lipase Prostate Specific Ag Vitamin B12 Folate TSH Urine Color Urine Appearance Urine pH Ur Specific [place] Urine Protein Urine Glucose (UA) Urine Ketones Urine Blood Urine Nitrite Ur Leukocyte Esterase Urine WBC (Auto) Urine RBC (Auto) Blood Type Antibody Screen 06/29/19 06/29/19 06/29/19 00:20 01:05 03:41 WBC RBC Hgb Hct MCV MCH MCHC RDW Plt Count Seg Neutrophils % Retic Count (auto) VBG pH VBG pCO2 VBG HCO3 VBG Base Excess Sodium Potassium Chloride Carbon Dioxide Anion Gap BUN Creatinine Est GFR ( Amer) Glucose Lactic Acid Calcium Iron 168.3 TIBC 201 L % Saturation 84 Ferritin 6190.00 H Total Bilirubin AST Alkaline Phosphatase Total Protein Albumin Lipase Prostate Specific Ag Vitamin B12 335.0 Folate 11.60 TSH 1.11 Urine Color GLORIA Urine Appearance SLIGHTLY-CLOUDY Urine pH 5.0 Ur Specific [place] 1.017 Urine Protein 100 H Urine Glucose (UA) NEGATIVE Urine Ketones NEGATIVE Urine Blood LARGE H Urine Nitrite NEGATIVE Ur Leukocyte Esterase NEGATIVE Urine WBC (Auto) 3 Urine RBC (Auto) 0 Blood Type Antibody Screen 06/29/19 06/29/19 06/29/19 03:45 03:45 03:45 WBC 27.5 H RBC 1.97 L Hgb 6.0 L Hct 17.3 L MCV 88 MCH 30.4 MCHC 34.5 RDW 14.4 H Plt Count 392 Seg Neutrophils % Not Reportable Retic Count (auto) VBG pH VBG pCO2 VBG HCO3 VBG Base Excess Sodium 142.5 Potassium 3.6 Chloride 105 Carbon Dioxide 28 Anion Gap 10 BUN 35 H Creatinine 0.91 Est GFR ( Amer) > 60 Glucose 130 H Lactic Acid 1.4 Calcium 7.5 L Iron TIBC % Saturation Ferritin Total Bilirubin AST Alkaline Phosphatase Total Protein Albumin Lipase Prostate Specific Ag Vitamin B12 Folate TSH Urine Color Urine Appearance Urine pH Ur Specific [place] Urine Protein Urine Glucose (UA) Urine Ketones Urine Blood Urine Nitrite Ur Leukocyte Esterase Urine WBC (Auto) Urine RBC (Auto) Blood Type Antibody Screen 06/29/19 03:45 WBC RBC Hgb Hct MCV MCH MCHC RDW Plt Count Seg Neutrophils % Retic Count (auto) VBG pH VBG pCO2 VBG HCO3 VBG Base Excess Sodium Potassium Chloride Carbon Dioxide Anion Gap BUN Creatinine Est GFR ( Amer) Glucose Lactic Acid Calcium Iron TIBC % Saturation Ferritin Total Bilirubin AST Alkaline Phosphatase Total Protein Albumin Lipase 272.0 Prostate Specific Ag 4.430 H Vitamin B12 Folate TSH Urine Color Urine Appearance Urine pH Ur Specific [place] Urine Protein Urine Glucose (UA) Urine Ketones Urine Blood Urine Nitrite Ur Leukocyte Esterase Urine WBC (Auto) Urine RBC (Auto) Blood Type Antibody Screen 06/28/19 06/28/19 21:50 21:50 Creatine Kinase 356 H CK-MB (CK-2) 1.02 Troponin I 0.047 Impressions: Chest X-Ray 06/28/19 00:00 IMPRESSION: Multifocal bilateral airspace disease, suspicious for multifocal pneumonia. Recommend follow-up to clearing. copyright 2010 [employer]- All Rights Reserved Head CT 06/28/19 21:55 IMPRESSION: 1. No acute intracranial findings. 2. Mild atrophy and old right thalamic lacunar infarct as seen on 01/04/2019. Abdomen/Pelvis CT 06/29/19 00:00 IMPRESSION: 1. Extensive multifocal bilateral ground-glass pulmonary opacity and trace bilateral pleural effusions, likely reflecting multifocal infection. 2. Consolidation of the lingula, which may be additionally related to infection. 3. No acute CT abnormality of the abdomen or pelvis. 4. There is a 1.2 cm incidental indeterminate nodule of the left adrenal gland. Consider follow-up adrenal protocol CT in 12 months to ensure stability. Chest CT 06/29/19 00:00 IMPRESSION: 1. Extensive multifocal bilateral ground-glass pulmonary opacity and trace bilateral pleural effusions, likely reflecting multifocal infection. 2. Consolidation of the lingula, which may be additionally related to infection. 3. No acute CT abnormality of the abdomen or pelvis. 4. There is a 1.2 cm incidental indeterminate nodule of the left adrenal gland. Consider follow-up adrenal protocol CT in 12 months to ensure stability. Assessment and Plan - Diagnosis (1) Acute encephalopathy Is this a current diagnosis for this admission?: Yes Plan: It might be both metabolic and due to pneumonia. We will treat the underlying cause. (2) Anemia Is this a current diagnosis for this admission?: Yes Plan: Etiology is unclear. With lactic dehydration is not elevated total bilirubin and icterus hemolytic anemia should be considered. Rosaline test are requested. Patient is status post 2 packed RBC transfusion. Blood loss anemia also should be considered as a differential since there is history of blood in the toilet. (3) Hyperbilirubinemia Is this a current diagnosis for this admission?: Yes Plan: Etiology is unclear. CT of the abdomen and pelvis are unremarkable per radiology. (4) Bilateral pneumonia Is this a current diagnosis for this admission?: Yes Plan: His CT reported as extensive multifocal bilateral groundglass pulmonary opacity and consolidation of the lingula. Patient has been started on Zosyn. (5) Hypokalemia Is this a current diagnosis for this admission?: Yes Plan: Corrected (6) Hypertension Qualifiers: Hypertension type: essential hypertension Qualified Code(s): I10 - Essential (primary) hypertension Is this a current diagnosis for this admission?: Yes Plan: We will monitor his blood pressure.
[2019-06-29] MEDS: HYDRALAZINE HCL INJ/PF 20 MG/1 ML SDV IV PRN (23:48)
[2019-06-30] MEDS: IPRATROPIUM/ALBUTEROL 0.5-2.5 MG/3 ML AMPUL NEB SCH ×4 (01:57→20:32)
[2019-06-30 06:42] LABS: HEMATOCRIT 18.7 % (37.9-51.0); MEAN CORPUSCULAR HEMOGLOBIN 31.5 pg (27.0-33.4); MEAN CORPUSCULAR HGB CONC 35.2 g/dL (32.0-36.0); MEAN CORPUSCULAR VOLUME 90 fl (80-97); PLATELET COUNT 392 10^3/uL (150-450); RED BLOOD COUNT 2.08 10^6/uL (4.35-5.55); RED CELL DISTRIBUTION WIDTH 15.2 % (11.5-14.0); WHITE BLOOD COUNT 25.3 10^3/uL (4.0-10.5)
[2019-06-30] MEDS: PIPERACILLIN SODIUM/TAZOBACTAM 4.5 GM in NORMAL SALINE 100 ML IV SCH ×4 (06:50→23:43)
[2019-06-30 07:00] LABS: ANION GAP 8 (5-19); BLOOD UREA NITROGEN 28 mg/dL (7-20); CALCIUM 7.6 mg/dL (8.4-10.2); CARBON DIOXIDE 29 mmol/L (22-30); CHLORIDE 110 mmol/L (98-107); GLUCOSE 113 mg/dL (75-110); POTASSIUM 3.3 mmol/L (3.6-5.0)
[2019-06-30 07:19] LABS: ABSOLUTE LYMPHOCYTES# (MANUAL) 3.5 10^3/uL (0.5-4.7); ABSOLUTE MONOCYTES # (MANUAL) 0.8 10^3/uL (0.1-1.4); BASOPHILS % (MANUAL) 0 % (0-2); EOSINOPHILS % (MANUAL) 1 % (0-6); LYMPHOCYTES % (MANUAL) 14 % (13-45); MONOCYTES % (MANUAL) 3 % (3-13); NUCLEATED RED BLOOD CELLS 3 /100 WBC (0); SEGMENTED NEUTROPHILS % (MAN) 82 % (42-78); TOTAL CELLS COUNTED 100
[2019-06-30 07:21] LABS: ANISOCYTOSIS SLIGHT; POLYCHROMASIA 1+; TOXIC GRANULATION SLIGHT
[2019-06-30 07:22] LABS: PAPPENHEIMER BODIES PRESENT; PLATELET LARGE PRESENT
[2019-06-30 07:23] LABS: HEMOGLOBIN 6.6 g/dL (13.5-17.0)
[2019-06-30 07:24] LABS: PLATELET COMMENT ADEQUATE
[2019-06-30] MEDS ORDERED: POTASSIUM CHLORIDE 10 MEQ CAPSULE.ER PO ONE (07:42)
[2019-06-30] MEDS ORDERED: NORMAL SALINE 250 ML IV PRN ×2 (07:47)
[2019-06-30] MEDS ORDERED: HYDRALAZINE HCL 50 MG TABLET PO ONE (09:10)
[2019-06-30] MEDS ORDERED: METOPROLOL TARTRATE 100 MG TABLET PO ONE (09:11)
[2019-06-30] MEDS: FONDAPARINUX SODIUM INJ 2.5 MG/0.5 ML DISP.SYRIN SUBCUT SCH (09:33)
[2019-06-30] MEDS: FLUTICASONE NASAL SPRAY 50 MCG/SPRY 120 SPRAY/16 GM NASL SCH ×2 (09:36→22:03)
--- NOTE | 2019-06-30 13:00 | PDOC PROGRESS REPORT ---
Subjective Progress Note for:: 06/30/19 Subjective:: This is 64 years old black male patient was past medical history of gout, hypertension, history of alcohol abuse, tobacco dependence and cerebrovascular accident with residual memory deficit, brought with chief complaint of loss of appetite progressive weight loss weakness and shortness of breath. He has had several months of fatigue, poor appetite, weight loss and blood in the toilet of unclear origin. I reviewed his medications and blood work and imaging studies. His his white cell count is elevated at 27,000 and hemoglobin of 5.5. After 2 units of blood transfusion hemoglobin increased to 6. His CT scan of the chest reported as extensive multifocal bilateral groundglass pulmonary opacities and trace bilateral effusion. He has also consolidation of the lingula. At bedside examination patient is awake alert but confused, agitated and try to pull out his IV lines. He is visibly icteric. He has coarse crepitation on both lung anguiano. 06/30/2019: Patient seen and examined while his resting in bed. Patient is more awake alert and oriented to place and person. He is more conversant. He states he is hungry and asking for food. His medication and lab work was reviewed. His white cell count is slightly trending down. His potassium mildly reduced from 3.6-3.3. His hemoglobin is 6.6. His sputum Gram stain is positive for gram-negative rods. 2 units of packed RBC requested. Legionella pneumonia suspected based on acute confusional state, elevated liver chemistries and diffuse bilateral pneumonia. Currently patient has been getting Zosyn. Reason For Visit: ANEMIA,SEPSIS,AMS,PNEUMONIA Physical Exam Vital Signs: Temp Pulse Resp BP Pulse Ox 98.1 F 97 18 146/66 H 96 06/30/19 12:15 06/30/19 12:15 06/30/19 12:15 06/30/19 12:15 06/30/19 12:09 Intake & Output 06/29/19 06/30/19 07/01/19 06:59 06:59 06:59 Intake Total 1867 1151.2 100 Output Total 0 1850 Balance 1867 -698.8 100 Weight 74.1 kg 69.8 kg Results Laboratory Results: 06/30/19 06:10 06/30/19 06:10 06/28/19 06/30/19 06/30/19 21:50 06:10 06:10 WBC 25.3 H RBC 2.08 L Hgb 6.6 L Hct 18.7 L MCV 90 MCH 31.5 MCHC 35.2 RDW 15.2 H Plt Count 392 Seg Neutrophils % Not Reportable Sodium 147.3 H Potassium 3.3 L Chloride 110 H Carbon Dioxide 29 Anion Gap 8 BUN 28 H Creatinine 0.94 Est GFR ( Amer) > 60 Glucose 113 H Calcium 7.6 L Ammonia Blood Type O POSITIVE Antibody Screen NEGATIVE 06/30/19 06:10 WBC RBC Hgb Hct MCV MCH MCHC RDW Plt Count Seg Neutrophils % Sodium Potassium Chloride Carbon Dioxide Anion Gap BUN Creatinine Est GFR ( Amer) Glucose Calcium Ammonia 15.2 Blood Type Antibody Screen 06/28/19 06/28/19 21:50 21:50 Creatine Kinase 356 H CK-MB (CK-2) 1.02 Troponin I 0.047 Impressions: Chest X-Ray 06/28/19 00:00 IMPRESSION: Multifocal bilateral airspace disease, suspicious for multifocal pneumonia. Recommend follow-up to clearing. copyright 2010 [employer]- All Rights Reserved Head CT 06/28/19 21:55 IMPRESSION: 1. No acute intracranial findings. 2. Mild atrophy and old right thalamic lacunar infarct as seen on 01/04/2019. Abdomen/Pelvis CT 06/29/19 00:00 IMPRESSION: 1. Extensive multifocal bilateral ground-glass pulmonary opacity and trace bilateral pleural effusions, likely reflecting multifocal infection. 2. Consolidation of the lingula, which may be additionally related to infection. 3. No acute CT abnormality of the abdomen or pelvis. 4. There is a 1.2 cm incidental indeterminate nodule of the left adrenal gland. Consider follow-up adrenal protocol CT in 12 months to ensure stability. Chest CT 06/29/19 00:00 IMPRESSION: 1. Extensive multifocal bilateral ground-glass pulmonary opacity and trace bilateral pleural effusions, likely reflecting multifocal infection. 2. Consolidation of the lingula, which may be additionally related to infection. 3. No acute CT abnormality of the abdomen or pelvis. 4. There is a 1.2 cm incidental indeterminate nodule of the left adrenal gland. Consider follow-up adrenal protocol CT in 12 months to ensure stability. Assessment and Plan - Diagnosis (1) Acute encephalopathy Is this a current diagnosis for this admission?: Yes Plan: Has improved (2) Anemia Is this a current diagnosis for this admission?: Yes Plan: Etiology is unclear. With lactic dehydration is not elevated total bilirubin and icterus hemolytic anemia should be considered. Rosaline test are requested. Patient is status post 2 packed RBC transfusion. Blood loss anemia also should be considered as a differential since there is history of blood in the toilet. (3) Hyperbilirubinemia Is this a current diagnosis for this admission?: Yes Plan: Etiology is unclear. CT of the abdomen and pelvis are unremarkable per radiology. (4) Bilateral pneumonia Is this a current diagnosis for this admission?: Yes Plan: Sputum cultures positive for gram-negative rods. Patient has been on Zosyn. (5) Hypokalemia Is this a current diagnosis for this admission?: Yes Plan: Being replaced. (6) Hypertension Qualifiers: Hypertension type: essential hypertension Qualified Code(s): I10 - Essential (primary) hypertension Is this a current diagnosis for this admission?: Yes Plan: We will monitor his blood pressure.
[2019-06-30] MEDS ORDERED: LORAZEPAM INJ 2 MG/1 ML VIAL ONE ×2 (14:54→15:18)
[2019-06-30] MEDS: HYDRALAZINE HCL 50 MG TABLET PO SCH ×2 (14:59→22:02)
[2019-06-30] MEDS: HYDRALAZINE HCL INJ/PF 20 MG/1 ML SDV IV PRN (15:00)
[2019-06-30] MEDS ORDERED: LORAZEPAM INJ 2 MG/1 ML VIAL IV ONE (15:00)
[2019-06-30] MEDS ORDERED: FUROSEMIDE INJ/PF 40 MG/4 ML SDV ONE ×2 (15:17→15:28)
[2019-06-30] MEDS ORDERED: METHYLPREDNISOLONE INJ 125 MG/2 ML SDV ONE (15:20)
[2019-06-30 15:27] LABS: ARTERIAL BLOOD BASE EXCESS 0.5 mmol/L; ARTERIAL BLOOD HCO3 24.5 mmol/L (20-24); ARTERIAL BLOOD O2 SATURATION 98.7 % (94-98); ARTERIAL BLOOD PCO2 36.5 mmHg (35-45); ARTERIAL BLOOD PH 7.44 (7.35-7.45); ARTERIAL BLOOD PO2 129.3 mmHg (80-100); ARTERIAL BLOOD TOTAL CO2 25.6 mmol/L (23-27)
[2019-06-30] MEDS ORDERED: MORPHINE SULFATE 10 MG/ML INJ ONE (15:29)
[2019-06-30 15:31] LABS: ARTERIAL BLOOD FIO2 100%
[2019-06-30] MEDS ORDERED: LABETALOL HCL INJ 20 MG/4 ML DISP.SYRIN IV ONE (15:35)
--- NOTE | 2019-06-30 15:45 | Progress Note ---
Provider Note Provider Note: This is 64 years old black male patient admitted with a diagnosis of bilateral multifocal pneumonia, severe anemia and hyperbilirubinemia. Patient is being treated with IV Zosyn for sepsis and pneumonia. This afternoon patient is being getting packed WBC when he started to have labored breathing, shortness of cindy th and his blood pressure is in the hypertensive emergency range. I directly activated and patient is given IV Lasix, IV Solu-Medrol and IV morphine sulfate. His chest x-ray revealed diffuse patchy consolidation which is compatible with sudden pulmonary edema. After resuscitation patient transferred to ICU.
[2019-06-30] MEDS ORDERED: NITROGLYCERIN/D5W 50 MG/250 ML RTUINJ IV ONE (16:01)
[2019-06-30] MEDS ORDERED: NITROGLYCERIN 50 MG/D5W 250 ML IV PRN (16:06)
[2019-06-30 16:17] LABS: HEMATOCRIT 22.9 % (37.9-51.0); MEAN CORPUSCULAR HEMOGLOBIN 28.8 pg (27.0-33.4); MEAN CORPUSCULAR HGB CONC 33.5 g/dL (32.0-36.0); PLATELET COUNT 423 10^3/uL (150-450); RED BLOOD COUNT 2.67 10^6/uL (4.35-5.55); RED CELL DISTRIBUTION WIDTH 15.2 % (11.5-14.0); WHITE BLOOD COUNT 27.7 10^3/uL (4.0-10.5)
--- NOTE | 2019-06-30 16:18 | RADIOLOGY REPORT (SQ) ---
EXAM DESCRIPTION: CHEST SINGLE VIEW COMPLETED DATE/TIME: 06/30/2019 3:38 pm REASON FOR STUDY: sob COMPARISON: 06/28/2018 NUMBER OF VIEWS: One view. TECHNIQUE: Single frontal radiographic image of the chest acquired. LIMITATIONS: None. FINDINGS: LUNGS AND PLEURA: Increasing bilateral airspace opacities. There are associated air bronc hograms. No evidence of cavitation. MEDIASTINUM AND HEART: Stable heart size and mediastinal structures. BONY STRUCTURES: No acute findings. HARDWARE: None. OTHER: No other significant finding. IMPRESSION: Rehydration versus progressing bilateral pneumonia. TECHNICAL DOCUMENTATION: JOB ID: [id number] Reading location - IP/workstation name: [email or web address]
[2019-06-30 16:28] LABS: HEMOGLOBIN 7.7 g/dL (13.5-17.0)
[2019-06-30 16:30] LABS: ALBUMIN 3.5 g/dL (3.5-5.0); ALKALINE PHOSPHATASE 89 U/L (38-126); ANION GAP 9 (5-19); ASPARTATE AMINO TRANSFERASE 41 U/L (17-59); BILIRUBIN,DIRECT 0.8 mg/dL (0.0-0.4); BILIRUBIN,TOTAL 3.3 mg/dL (0.2-1.3); BLOOD UREA NITROGEN 29 mg/dL (7-20); CALCIUM 8.1 mg/dL (8.4-10.2); CARBON DIOXIDE 27 mmol/L (22-30); CHLORIDE 110 mmol/L (98-107); GLUCOSE 253 mg/dL (75-110); POTASSIUM 3.9 mmol/L (3.6-5.0); TOTAL PROTEIN 6.9 g/dL (6.3-8.2)
[2019-06-30 16:48] LABS: ABSOLUTE LYMPHOCYTES# (MANUAL) 4.7 10^3/uL (0.5-4.7); ABSOLUTE MONOCYTES # (MANUAL) 1.4 10^3/uL (0.1-1.4); ANISOCYTOSIS SLIGHT; BASOPHILS % (MANUAL) 0 % (0-2); EOSINOPHILS % (MANUAL) 0 % (0-6); LYMPHOCYTES % (MANUAL) 15 % (13-45); MONOCYTES % (MANUAL) 5 % (3-13); SEGMENTED NEUTROPHILS % (MAN) 78 % (42-78); TOTAL CELLS COUNTED 100
[2019-06-30 16:49] LABS: HYPOCHROMASIA 1+; PLATELET COMMENT ADEQUATE; POLYCHROMASIA 1+
[2019-06-30 17:07] LABS: NUCLEATED RED BLOOD CELLS 11 /100 WBC (0)
[2019-06-30 17:28] LABS: MEAN CORPUSCULAR VOLUME 86 fl (80-97)
[2019-06-30] MEDS ORDERED: CEFTRIAXONE 1 GM/D5W RTU 1 GM/50 ML RTUPB IV SCH (19:00)
[2019-06-30] MEDS: METOPROLOL TARTRATE 50 MG TABLET PO SCH (22:02)
[2019-07-01] MEDS: IPRATROPIUM/ALBUTEROL 0.5-2.5 MG/3 ML AMPUL NEB SCH ×4 (02:43→20:17)
[2019-07-01 04:09] LABS: HEMATOCRIT 23.3 % (37.9-51.0); MEAN CORPUSCULAR HEMOGLOBIN 29.4 pg (27.0-33.4); MEAN CORPUSCULAR HGB CONC 33.5 g/dL (32.0-36.0); MEAN CORPUSCULAR VOLUME 88 fl (80-97); PLATELET COUNT 409 10^3/uL (150-450); RED BLOOD COUNT 2.65 10^6/uL (4.35-5.55); RED CELL DISTRIBUTION WIDTH 15.3 % (11.5-14.0); WHITE BLOOD COUNT 26.2 10^3/uL (4.0-10.5)
[2019-07-01 04:32] LABS: HEMOGLOBIN 7.8 g/dL (13.5-17.0)
[2019-07-01 04:35] LABS: ABSOLUTE LYMPHOCYTES# (MANUAL) 2.6 10^3/uL (0.5-4.7); ABSOLUTE MONOCYTES # (MANUAL) 0.3 10^3/uL (0.1-1.4); ALBUMIN 3.5 g/dL (3.5-5.0); ALKALINE PHOSPHATASE 88 U/L (38-126); ANION GAP 9 (5-19); ANISOCYTOSIS 1+; ASPARTATE AMINO TRANSFERASE 27 U/L (17-59); BAND NEUTROPHILS % (MANUAL) 2 % (3-5); BASOPHILS % (MANUAL) 0 % (0-2); BILIRUBIN,DIRECT 0.7 mg/dL (0.0-0.4); BILIRUBIN,TOTAL 1.5 mg/dL (0.2-1.3); BLOOD UREA NITROGEN 33 mg/dL (7-20); CALCIUM 8.5 mg/dL (8.4-10.2); CARBON DIOXIDE 28 mmol/L (22-30); CHLORIDE 112 mmol/L (98-107); EOSINOPHILS % (MANUAL) 0 % (0-6); GLUCOSE 160 mg/dL (75-110); LYMPHOCYTES % (MANUAL) 10 % (13-45); MONOCYTES % (MANUAL) 1 % (3-13); PLATELET COMMENT ADEQUATE; POLYCHROMASIA 1+; SEGMENTED NEUTROPHILS % (MAN) 87 % (42-78); TOTAL CELLS COUNTED 100; TOTAL PROTEIN 6.9 g/dL (6.3-8.2); TOXIC GRANULATION 1+
[2019-07-01] MEDS: HYDRALAZINE HCL 50 MG TABLET PO SCH ×3 (06:17→21:31)
[2019-07-01] MEDS: PIPERACILLIN SODIUM/TAZOBACTAM 4.5 GM in NORMAL SALINE 100 ML IV SCH ×3 (06:17→17:17)
[2019-07-01] MEDS: FONDAPARINUX SODIUM INJ 2.5 MG/0.5 ML DISP.SYRIN SUBCUT SCH (09:05)
[2019-07-01] MEDS: METOPROLOL TARTRATE 50 MG TABLET PO SCH ×2 (09:05→21:32)
[2019-07-01] MEDS: FLUTICASONE NASAL SPRAY 50 MCG/SPRY 120 SPRAY/16 GM NASL SCH ×2 (09:06→21:32)
[2019-07-01] MEDS: DEXTROSE 5%-1/2 NORMAL SALINE 1,000 ML IV PRN (12:03)
[2019-07-01] MEDS ORDERED: GLUCAGON,HUMAN RECOMB 1 MG INJ SUBCUT PRN (14:50)
[2019-07-01] MEDS ORDERED: DEXTROSE 50%-WATER 25 GM/50 ML DISP.SYRIN IV PRN ×2 (14:50)
[2019-07-01] MEDS ORDERED: DEXTROSE 40% GEL 15 GM TUBE PO PRN ×2 (14:50)
--- NOTE | 2019-07-01 15:05 | PDOC PROGRESS REPORT ---
Subjective Progress Note for:: 07/01/19 Subjective:: This is 64 years old black male patient was past medical history of gout, hypertension, history of alcohol abuse, tobacco dependence and cerebrovascular accident with residual memory deficit, brought with chief complaint of loss of appetite progressive weight loss weakness and shortness of breath. He has had several months of fatigue, poor appetite, weight loss and blood in the toilet of unclear origin. I reviewed his medications and blood work and imaging studies. His his white cell count is elevated at 27,000 and hemoglobin of 5.5. After 2 units of blood transfusion hemoglobin increased to 6. His CT scan of the chest reported as extensive multifocal bilateral groundglass pulmonary opacities and trace bilateral effusion. He has also consolidation of the lingula. At bedside examination patient is awake alert but confused, agitated and try to pull out his IV lines. He is visibly icteric. He has coarse crepitation on both lung anguiano. 06/30/2019: Patient seen and examined while his resting in bed. Patient is more awake alert and oriented to place and person. He is more conversant. He states he is hungry and asking for food. His medication and lab work was reviewed. His white cell count is slightly trending down. His potassium mildly reduced from 3.6-3.3. His hemoglobin is 6.6. His sputum Gram stain is positive for gram-negative rods. 2 units of packed RBC requested. Legionella pneumonia suspected based on acute confusional state, elevated liver chemistries and diffuse bilateral pneumonia. Currently patient has been getting Zosyn. 07/01/2019: Yesterday afternoon patient is being getting packed WBC when he started to have labored breathing, shortness of breath and his blood pressure is in the hypertensive emergency range. I directly activated and patient is given IV Lasix, IV Solu-Medrol and IV morphine sulfate. His chest x-ray revealed diffuse patchy consolidation which is compatible with sudden pulmonary edema. After resuscitation patient transferred to ICU. This morning patient seen resting in bed comfortably. He is in mild respiratory distress. He is off BiPAP and on 2 L of oxygen via nasal cannula and desaturates 98%. His labs reviewed it shows that his white cell count is 26.2 and hemoglobin increased from 5.5-7.8. Some mild hyponatremia with sodium at 149.3. BUN 33 creatinine 1.12 and his total bilirubin trended from 5-1.5. For his hyponatremia I started him on half saline with D5W. Reason For Visit: ANEMIA,SEPSIS,AMS,PNEUMONIA Physical Exam Vital Signs: Temp Pulse Resp BP Pulse Ox 98.0 F 76 21 H 142/89 H 98 07/01/19 12:00 07/01/19 13:57 07/01/19 14:00 07/01/19 12:59 07/01/19 14:00 Intake & Output 06/30/19 07/01/19 07/02/19 06:59 06:59 06:59 Intake Total 1151.2 1561 100 Output Total 1850 3635 390 Balance -698.8 -2074 -290 Weight 69.8 kg 72.3 kg Results Laboratory Results: 07/01/19 03:48 07/01/19 03:48 06/30/19 06/30/19 06/30/19 15:20 16:04 16:04 WBC 27.7 H RBC 2.67 L Hgb 7.7 L Hct 22.9 L MCV 86 D MCH 28.8 MCHC 33.5 RDW 15.2 H Plt Count 423 Seg Neutrophils % Not Reportable Carbonic Acid 1.10 HCO3/H2CO3 Ratio 22:1 ABG pH 7.44 ABG pCO2 36.5 ABG pO2 129.3 H ABG HCO3 24.5 H ABG O2 Saturation 98.7 H ABG Base Excess 0.5 FiO2 100% Sodium 145.9 H Potassium 3.9 Chloride 110 H Carbon Dioxide 27 Anion Gap 9 BUN 29 H Creatinine 1.07 Est GFR ( Amer) > 60 Glucose 253 H Calcium 8.1 L Magnesium 2.7 H Total Bilirubin 3.3 H AST 41 Alkaline Phosphatase 89 Total Protein 6.9 Albumin 3.5 07/01/19 07/01/19 03:48 03:48 WBC 26.2 H RBC 2.65 L Hgb 7.8 L Hct 23.3 L MCV 88 MCH 29.4 MCHC 33.5 RDW 15.3 H Plt Count 409 Seg Neutrophils % Not Reportable Carbonic Acid HCO3/H2CO3 Ratio ABG pH ABG pCO2 ABG pO2 ABG HCO3 ABG O2 Saturation ABG Base Excess FiO2 Sodium 149.3 H Potassium 4.0 Chloride 112 H Carbon Dioxide 28 Anion Gap 9 BUN 33 H Creatinine 1.12 Est GFR ( Amer) > 60 Glucose 160 H Calcium 8.5 Magnesium Total Bilirubin 1.5 H AST 27 Alkaline Phosphatase 88 Total Protein 6.9 Albumin 3.5 06/29/19 02:01 Sputum Gram Stain - Final 06/29/19 02:01 Sputum Sputum Culture - Final Streptococcus Pneumoniae Pseudomonas Aeruginosa Normal Phyllis Absent 06/28/19 06/28/19 21:50 21:50 Creatine Kinase 356 H CK-MB (CK-2) 1.02 Troponin I 0.047 Impressions: Head CT 06/28/19 21:55 IMPRESSION: 1. No acute intracranial findings. 2. Mild atrophy and old right thalamic lacunar infarct as seen on 01/04/2019. Abdomen/Pelvis CT 06/29/19 00:00 IMPRESSION: 1. Extensive multifocal bilateral ground-glass pulmonary opacity and trace bilateral pleural effusions, likely reflecting multifocal infection. 2. Consolidation of the lingula, which may be additionally related to infection. 3. No acute CT abnormality of the abdomen or pelvis. 4. There is a 1.2 cm incidental indeterminate nodule of the left adrenal gland. Consider follow-up adrenal protocol CT in 12 months to ensure stability. Chest CT 06/29/19 00:00 IMPRESSION: 1. Extensive multifocal bilateral ground-glass pulmonary opacity and trace bilateral pleural effusions, likely reflecting multifocal infection. 2. Consolidation of the lingula, which may be additionally related to infection. 3. No acute CT abnormality of the abdomen or pelvis. 4. There is a 1.2 cm incidental indeterminate nodule of the left adrenal gland. Consider follow-up adrenal protocol CT in 12 months to ensure stability. Chest X-Ray 06/30/19 00:00 IMPRESSION: Rehydration versus progressing bilateral pneumonia. Assessment and Plan - Diagnosis (1) Bilateral pneumonia Is this a current diagnosis for this admission?: Yes Plan: Sputum cultures positive for gram-negative rods. Patient has been on Zosyn. (2) Hypernatremia Is this a current diagnosis for this admission?: Yes Plan: Patient has been started half normal saline with D5W. (3) Acute encephalopathy Is this a current diagnosis for this admission?: Yes Plan: Patient is less agitated. (4) Anemia Is this a current diagnosis for this admission?: Yes Plan: Yesterday patient was scheduled to be transfused 2 units of packed RBC and after the first half transfusion patient developed some shortness of breath. And the transfusion was on hold. Hemoglobin increased from 5.5-7.8. Dr. Domingo consulted to evaluate this patient. (5) Hyperbilirubinemia Is this a current diagnosis for this admission?: Yes Plan: Improving (6) Hypokalemia Is this a current diagnosis for this admission?: Yes Plan: Being replaced. (7) Hypertension Qualifiers: Hypertension type: essential hypertension Qualified Code(s): I10 - Essential (primary) hypertension Is this a current diagnosis for this admission?: Yes Plan: We will monitor his blood pressure.
[2019-07-01] MEDS ORDERED: LORAZEPAM INJ 2 MG/1 ML VIAL ONE (15:46)
--- NOTE | 2019-07-01 17:00 | PDOC CONSULTATION ---
Consultation Consult Date: 07/01/19 Provider Consulted: JOSE FRANCISCO ONTIVEROS Consult reason:: Anemia History of Present Illness Admission Date/PCP: 06/29/19 03:09 History of Present Illness: ERNIE DUKES is a 64 year old male with history of gout,CVA with residual memory deficit,alcohol abuse,tobacco dependence,hypertension admitted for pneumonia and weight loss with weakness. Noted Hb of 5.5 on admission 06/29/19. Was getting 2 units of PRBC yesterday when developed CHF and transfered to the ICU. Denies fever,chills nor abdominal pains. Denies history of peptic ulcer disease and not on any anticoagulation. Past Medical History Cardiac Medical History: Reports: Hypertension Denies: Coronary Artery Disease Pulmonary Medical History: Denies: Asthma, Chronic Obstructive Pulmonary Disease (COPD) Endocrine Medical History: Denies: Diabetes Mellitus Type 1, Hyperthyroidism, Hypothyroidism GI Medical History: Denies: Cirrhosis, Hepatitis Musculoskeltal Medical History: Reports: Gout Denies: Fibromyalgia Skin Medical History: Denies: Eczema, Psoriasis Psychiatric Medical History: Reports: Tobacco Dependency Comment Only: Depression - anxiety Hematology: Denies: Anemia, Bleeding Tendencies Past Surgical History Past Surgical History: Reports: Other - Colonoscopy with polyp removal Social History Lives with: Spouse/Significant other Smoking Status: Current Every Day Smoker Number of Years Smokin Frequency of Alcohol Use: Occasional Hx Recreational Drug Use: No Drugs: None Hx Prescription Drug Abuse: No - Advance Directive Resuscitation Status: Full Code Family History Family History: Hypertension, Other - Mother with unknown malignancy Parental Family History Reviewed: Yes Children Family History Reviewed: No Sibling(s) Family History Reviewed.: No Medication/Allergy Home Medications: No Home Medications 06/29/19 Allergies/Adverse Reactions: grass pollen Allergy (Verified 01/05/19 08:01) tree and shrub pollen Allergy (Verified 01/05/19 08:01) Review of Systems Constitutional: PRESENT: as per HPI Physical Exam Vital Signs: Temp Pulse Resp BP Pulse Ox 96.9 F L 90 24 H 164/97 H 95 07/01/19 14:00 07/01/19 16:00 07/01/19 16:00 07/01/19 16:00 07/01/19 16:00 Intake & Output 06/30/19 07/01/19 07/02/19 06:59 06:59 06:59 Intake Total 1151.2 1561 100 Output Total 7620 3635 480 Balance -698.8 -2074 -380 Weight 69.8 kg 72.3 kg General appearance: PRESENT: no acute distress Head exam: PRESENT: atraumatic Mouth exam: PRESENT: moist Neck exam: PRESENT: full ROM Pulses: PRESENT: normal radial pulses Vascular exam: PRESENT: normal capillary refill GI/Abdominal exam: PRESENT: soft - non tender Rectal exam: PRESENT: deferred Neurological exam: PRESENT: alert, oriented to person, oriented to place, orien hanane to situation, other - slow to respond Psychiatric exam: PRESENT: appropriate affect Skin exam: PRESENT: normal color, warm Results Laboratory Results: 07/01/19 03:48 07/01/19 03:48 06/30/19 07/01/19 07/01/19 16:04 03:48 03:48 WBC 27.7 H 26.2 H RBC 2.67 L 2.65 L Hgb 7.7 L 7.8 L Hct 22.9 L 23.3 L MCV 86 D 88 MCH 28.8 29.4 MCHC 33.5 33.5 RDW 15.2 H 15.3 H Plt Count 423 409 Seg Neutrophils % Not Reportable Sodium 149.3 H Potassium 4.0 Chloride 112 H Carbon Dioxide 28 Anion Gap 9 BUN 33 H Creatinine 1.12 Est GFR ( Amer) > 60 Glucose 160 H Calcium 8.5 Total Bilirubin 1.5 H AST 27 Alkaline Phosphatase 88 Total Protein 6.9 Albumin 3.5 06/29/19 02:01 Sputum Gram Stain - Final 06/29/19 02:01 Sputum Sputum Culture - Final Streptococcus Pneumoniae Pseudomonas Aeruginosa Normal Phyllis Absent 06/28/19 06/28/19 21:50 21:50 Creatine Kinase 356 H CK-MB (CK-2) 1.02 Troponin I 0.047 Impressions: Head CT 06/28/19 21:55 IMPRESSION: 1. No acute intracranial findings. 2. Mild atrophy and old right thalamic lacunar infarct as seen on 01/04/2019. Abdomen/Pelvis CT 06/29/19 00:00 IMPRESSION: 1. Extensive multifocal bilateral ground-glass pulmonary opacity and trace bilateral pleural effusions, likely reflecting multifocal infection. 2. Consolidation of the lingula, which may be additionally related to infection. 3. No acute CT abnormality of the abdomen or pelvis. 4. There is a 1.2 cm incidental indeterminate nodule of the left adrenal gland. Consider follow-up adrenal protocol CT in 12 months to ensure stability. Chest CT 06/29/19 00:00 IMPRESSION: 1. Extensive multifocal bilateral ground-glass pulmonary opacity and trace bilateral pleural effusions, likely reflecting multifocal infection. 2. Consolidation of the lingula, which may be additionally related to infection. 3. No acute CT abnormality of the abdomen or pelvis. 4. There is a 1.2 cm incidental indeterminate nodule of the left adrenal gland. Consider follow-up adrenal protocol CT in 12 months to ensure stability. Chest X-Ray 06/30/19 00:00 IMPRESSION: Rehydration versus progressing bilateral pneumonia. Assessment & Plan - Diagnosis (1) Acute encephalopathy Is this a current diagnosis for this admission?: Yes (2) Anemia Qualifiers: Anemia type: unspecified type Qualified Code(s): D64.9 - Anemia, unspecified Is this a current diagnosis for this admission?: Yes (3) Anemia Is this a current diagnosis for this admission?: Yes (4) Hyperbilirubinemia Is this a current diagnosis for this admission?: Yes (5) Hypernatremia Is this a current diagnosis for this admission?: Yes (6) Hypertension Qualifiers: Hypertension type: essential hypertension Qualified Code(s): I10 - Essential (primary) hypertension Is this a current diagnosis for this admission?: Yes (7) Sepsis Qualifiers: Sepsis acute organ dysfunction status: unspecified Is this a current diagnosis for this admission?: Yes (8) Alcohol abuse Is this a current diagnosis for this admission?: Yes - Time Time Spent: 30 to 50 Minutes - Inpatient Certification Medical Necessity: Need For IV Fluids, Need for IV Antibiotics - Plan Summary Plan Summary: His Vital signs are stable at this time. Appears to have some short of breath. He needs an EGD but may not have to be done on emergent/urgent basis because of his pneumonia. Has risk for aspiration with EGD which he may not need urgently. His anemia appears to be chronic. Will keep him NPO after midnight and inform Dr Garcia tomorrow am for possible EGD
[2019-07-01] MEDS ORDERED: LORAZEPAM INJ 2 MG/1 ML VIAL IV ONE (18:00)
[2019-07-01] MEDS: ACETAMINOPHEN 325 MG TABLET PO PRN (21:31)
[2019-07-02] MEDS: PIPERACILLIN SODIUM/TAZOBACTAM 4.5 GM in NORMAL SALINE 100 ML IV SCH ×2 (01:10→05:19)
[2019-07-02] MEDS: IPRATROPIUM/ALBUTEROL 0.5-2.5 MG/3 ML AMPUL NEB SCH ×4 (02:12→21:52)
[2019-07-02 04:19] LABS: HEMATOCRIT 22.2 % (37.9-51.0); MEAN CORPUSCULAR HEMOGLOBIN 28.6 pg (27.0-33.4); MEAN CORPUSCULAR HGB CONC 33.1 g/dL (32.0-36.0); MEAN CORPUSCULAR VOLUME 86 fl (80-97); PLATELET COUNT 395 10^3/uL (150-450); RED BLOOD COUNT 2.58 10^6/uL (4.35-5.55); RED CELL DISTRIBUTION WIDTH 15.3 % (11.5-14.0); WHITE BLOOD COUNT 24.5 10^3/uL (4.0-10.5)
[2019-07-02 04:51] LABS: ABSOLUTE LYMPHOCYTES# (MANUAL) 3.2 10^3/uL (0.5-4.7); ABSOLUTE MONOCYTES # (MANUAL) 0.5 10^3/uL (0.1-1.4); BAND NEUTROPHILS % (MANUAL) 4 % (3-5); BASOPHILS % (MANUAL) 0 % (0-2); EOSINOPHILS % (MANUAL) 0 % (0-6); LYMPHOCYTES % (MANUAL) 13 % (13-45); MONOCYTES % (MANUAL) 2 % (3-13); SEGMENTED NEUTROPHILS % (MAN) 81 % (42-78); TOTAL CELLS COUNTED 100
[2019-07-02 04:52] LABS: ANISOCYTOSIS SLIGHT; PLATELET COMMENT ADEQUATE; POLYCHROMASIA SLIGHT; TOXIC GRANULATION SLIGHT; TOXIC VACUOLATION PRESENT
[2019-07-02 04:53] LABS: HEMOGLOBIN 7.4 g/dL (13.5-17.0)
[2019-07-02 04:54] LABS: ALBUMIN 3.2 g/dL (3.5-5.0); ALKALINE PHOSPHATASE 76 U/L (38-126); ANION GAP 10 (5-19); ASPARTATE AMINO TRANSFERASE 23 U/L (17-59); BILIRUBIN,DIRECT 0.4 mg/dL (0.0-0.4); BILIRUBIN,TOTAL 1.2 mg/dL (0.2-1.3); BLOOD UREA NITROGEN 30 mg/dL (7-20); CALCIUM 7.8 mg/dL (8.4-10.2); CARBON DIOXIDE 25 mmol/L (22-30); CHLORIDE 109 mmol/L (98-107); GLUCOSE 109 mg/dL (75-110); POTASSIUM 3.2 mmol/L (3.6-5.0); TOTAL PROTEIN 6.2 g/dL (6.3-8.2)
[2019-07-02] MEDS: HYDRALAZINE HCL 50 MG TABLET PO SCH ×3 (05:18→21:03)
[2019-07-02] MEDS: HYDRALAZINE HCL INJ/PF 20 MG/1 ML SDV IV PRN ×3 (05:22→23:55)
[2019-07-02] MEDS: DEXTROSE 5%-1/2 NORMAL SALINE 1,000 ML IV PRN ×2 (05:26→18:52)
[2019-07-02] MEDS ORDERED: CEFEPIME 2 GM/D5W RTU 2 GM/50 ML RTUPB IV SCH (07:30)
--- NOTE | 2019-07-02 08:48 | PDOC PROGRESS REPORT ---
Subjective Progress Note for:: 07/02/19 Subjective:: Patient cuco disoriented; pulmonary status improving; no hematochezia or hematemesis. Reason For Visit: ANEMIA,SEPSIS,AMS,PNEUMONIA Physical Exam Vital Signs: Temp Pulse Resp BP Pulse Ox 98 F 81 25 H 158/83 H 100 07/02/19 04:00 07/02/19 08:00 07/02/19 08:00 07/02/19 08:00 07/02/19 08:00 Intake & Output 07/01/19 07/02/19 07/03/19 06:59 06:59 06:59 Intake Total 1561 2129 Output Total 3635 1455 Balance -2074 674 Weight 72.3 kg 74.5 kg General appearance: PRESENT: no acute distress, other - Awake aroused but disoriented to place and situation GI/Abdominal exam: PRESENT: other - Soft, nontender no peritoneal signs no rigidity Results Laboratory Results: 07/02/19 04:08 07/02/19 04:08 07/02/19 07/02/19 04:08 04:08 WBC 24.5 H RBC 2.58 L Hgb 7.4 L Hct 22.2 L MCV 86 MCH 28.6 MCHC 33.1 RDW 15.3 H Plt Count 395 Seg Neutrophils % Not Reportable Sodium 143.6 Potassium 3.2 L Chloride 109 H Carbon Dioxide 25 Anion Gap 10 BUN 30 H Creatinine 1.00 Est GFR ( Amer) > 60 Glucose 109 Calcium 7.8 L Total Bilirubin 1.2 AST 23 Alkaline Phosphatase 76 Total Protein 6.2 L Albumin 3.2 L 06/29/19 02:01 Sputum Gram Stain - Final 06/29/19 02:01 Sputum Sputum Culture - Final Streptococcus Pneumoniae Pseudomonas Aeruginosa Normal Phyllis Absent 06/28/19 06/28/19 21:50 21:50 Creatine Kinase 356 H CK-MB (CK-2) 1.02 Troponin I 0.047 Impressions: Head CT 06/28/19 21:55 IMPRESSION: 1. No acute intracranial findings. 2. Mild atrophy and old right thalamic lacunar infarct as seen on 01/04/2019. Abdomen/Pelvis CT 06/29/19 00:00 IMPRESSION: 1. Extensive multifocal bilateral ground-glass pulmonary opacity and trace bilateral pleural effusions, likely reflecting multifocal infection. 2. Consolidation of the lingula, which may be additionally related to infection. 3. No acute CT abnormality of the abdomen or pelvis. 4. There is a 1.2 cm incidental indeterminate nodule of the left adrenal gland. Consider follow-up adrenal protocol CT in 12 months to ensure stability. Chest CT 06/29/19 00:00 IMPRESSION: 1. Extensive multifocal bilateral ground-glass pulmonary opacity and trace bilateral pleural effusions, likely reflecting multifocal infection. 2. Consolidation of the lingula, which may be additionally related to infection. 3. No acute CT abnormality of the abdomen or pelvis. 4. There is a 1.2 cm incidental indeterminate nodule of the left adrenal gland. Consider follow-up adrenal protocol CT in 12 months to ensure stability. Chest X-Ray 06/30/19 00:00 IMPRESSION: Rehydration versus progressing bilateral pneumonia. Assessment & Plan - Diagnosis (1) Anemia Qualifiers: Anemia type: unspecified type Qualified Code(s): D64.9 - Anemia, unspecified Is this a current diagnosis for this admission?: Yes Plan: Impression: Anemia, likely chronic blood loss, rule out gastrointestinal source in patient with long-standing history of alcohol abuse Recommendations: 1. We will set patient up for bedside esophagogastroduodenoscopy, possible biopsies. This may require a family member or next of kin to provide informed consent. (2) Alcohol withdrawal Qualifiers: Complication of substance-induced condition: uncomplicated Qualified Code(s): F10.230 - Alcohol dependence with withdrawal, uncomplicated Is this a current diagnosis for this admission?: Yes
[2019-07-02] MEDS ORDERED: POTASSI CL 20 MEQ/50 ML RIDER 20 MEQ/50 ML RTUPB IV ONE (08:59)
[2019-07-02] MEDS ORDERED: POTASSIUM CHLORIDE 10 MEQ CAPSULE.ER PO ONE (09:00)
[2019-07-02] MEDS ORDERED: ONDANSETRON HCL INJ/PF 4 MG/2 ML SDV ONE (09:40)
[2019-07-02] MEDS ORDERED: DIPHENHYDRAMINE HCL 50 MG/ML VIAL ONE (09:40)
[2019-07-02] MEDS ORDERED: GLUCAGON,HUMAN RECOMB 1 MG INJ ONE (09:41)
[2019-07-02] MEDS ORDERED: NALOXONE HCL INJ/PF 0.4 MG/1 ML SDV ONE (09:41)
[2019-07-02] MEDS ORDERED: EPINEPHRINE INJ 1 MG/10 ML DISP.SYRIN ONE (09:41)
[2019-07-02] MEDS ORDERED: FLUMAZENIL INJ 0.5 MG/5 ML VIAL ONE (09:41)
[2019-07-02] MEDS ORDERED: POTASSIUM CHLORIDE 20 MEQ/50 ML RTU IV ONE (10:00)
[2019-07-02] MEDS: METOPROLOL TARTRATE 50 MG TABLET PO SCH ×2 (10:27→21:04)
[2019-07-02] MEDS: FLUTICASONE NASAL SPRAY 50 MCG/SPRY 120 SPRAY/16 GM NASL SCH ×2 (10:27→21:04)
[2019-07-02] MEDS: FONDAPARINUX SODIUM INJ 2.5 MG/0.5 ML DISP.SYRIN SUBCUT SCH (10:46)
[2019-07-02] MEDS: MIDAZOLAM 2 MG/2 ML INJ ONE ×4 (11:21→11:33)
--- NOTE | 2019-07-02 11:49 | Operative Report ---
Operative Report DATE OF SURGERY: 07/02/19 PREOPERATIVE DIAGNOSIS: 1. Pneumonia. 2. Anemia likely blood loss related POSTOPERATIVE DIAGNOSIS: Same with mild gastritis, mild duodenitis, hiatal hernia OPERATION: 1. Esophagogastroduodenoscopy. 2. Cold forceps biopsy of gastric antrum SURGEON: GRAY WILLIAMSON ANESTHESIA: Moderate Sedation COMPLICATIONS: None ESTIMATED BLOOD LOSS: Scant INTRAOPERATIVE FINDINGS: See below PROCEDURE: Informed consent was provided by family member; patient was set up for upper end oscopy in the ICU. Monitoring devices were attached and equipment brought into position. Surgical plan surgical timeout were conducted. Patient underwent conscious sedation with 6 mg of Versed. Oral mouthpiece was inserted, a flexible adult upper endoscope was advanced to the oropharynx, down the esophagus through the stomach into the duodenum, first and second portions. This is well-tolerated by the patient. First and second portion of the duodenum were significant for mild duodenitis. There was no evidence of tumor stricture bleeding or polyp. The scope was brought back to the pylorus which was otherwise unremarkable. There was mild gastritis but no ulceration bleeding or clot. A random biopsy of the gastric antrum was taken for CAROLEE testing. There was a small hiatal hernia. The stomach was decompressed of air and the brought back to the GE junction which was at 38 cm from the incisor. Esophagus was without varices bleeding or ulcers. The scope was withdrawn the patient's oropharynx. Tolerated procedure well. ReCommendations: 1. Continue medical support 2. Await results of CAROLEE testing 3. Will sign off for now; reconsult surgery if clinically indicated
[2019-07-02] MEDS ORDERED: HALOPERIDOL LACTATE INJ 5 MG/1 ML VIAL ONE (14:30)
[2019-07-02] MEDS ORDERED: LORAZEPAM INJ 2 MG/1 ML VIAL ONE (14:37)
[2019-07-02] MEDS: CEFEPIME HCL 2 GM in DEXTROSE 5%-WATER 50 ML IV SCH (17:12)
[2019-07-02] MEDS ORDERED: HALOPERIDOL LACTATE INJ 5 MG/1 ML VIAL IM ONE (17:30)
[2019-07-02] MEDS ORDERED: LORAZEPAM INJ 2 MG/1 ML VIAL IV ONE (17:30)
[2019-07-02] MEDS: ACETAMINOPHEN 325 MG TABLET PO PRN (21:03)
[2019-07-02 23:13] LABS: POTASSIUM 3.5 mmol/L (3.6-5.0)
[2019-07-03] MEDS: IPRATROPIUM/ALBUTEROL 0.5-2.5 MG/3 ML AMPUL NEB SCH ×4 (02:25→20:37)
[2019-07-03] MEDS ORDERED: LORAZEPAM INJ 2 MG/1 ML VIAL IV ONE (03:45)
[2019-07-03 03:58] LABS: ABSOLUTE BASOPHILS # (AUTO) 0.1 10^3/uL (0.0-0.2); ABSOLUTE EOSINOPHILS # (AUTO) 0.2 10^3/uL (0.0-0.6); ABSOLUTE LYMPHOCYTES (AUTO) 3.3 10^3/uL (0.5-4.7); ABSOLUTE MONOCYTES (AUTO) 0.9 10^3/uL (0.1-1.4); ABSOLUTE NEUT (AUTO) 12.2 10^3/uL (1.7-8.2); BASOPHILS % (AUTO) 0.9 % (0-2); EOSINOPHILS % (AUTO) 1.5 % (0-6); HEMATOCRIT 22.9 % (37.9-51.0); LYMPHOCYTES % (AUTO) 19.5 % (13-45); MEAN CORPUSCULAR HEMOGLOBIN 29.2 pg (27.0-33.4); MEAN CORPUSCULAR HGB CONC 33.4 g/dL (32.0-36.0); MEAN CORPUSCULAR VOLUME 87 fl (80-97); MONOCYTES % (AUTO) 5.3 % (3-13); PLATELET COUNT 400 10^3/uL (150-450); RED BLOOD COUNT 2.62 10^6/uL (4.35-5.55); RED CELL DISTRIBUTION WIDTH 15.3 % (11.5-14.0); SEGMENTED NEUTROPHILS % (AUTO) 72.8 % (42-78); TOTAL CELLS COUNTED % (AUTO) 100 %; WHITE BLOOD COUNT 16.7 10^3/uL (4.0-10.5)
[2019-07-03 04:01] LABS: HEMOGLOBIN 7.6 g/dL (13.5-17.0)
[2019-07-03 04:16] LABS: ALBUMIN 3.2 g/dL (3.5-5.0); ALKALINE PHOSPHATASE 65 U/L (38-126); ANION GAP 8 (5-19); ASPARTATE AMINO TRANSFERASE 27 U/L (17-59); BILIRUBIN,DIRECT 0.5 mg/dL (0.0-0.4); BILIRUBIN,TOTAL 1.2 mg/dL (0.2-1.3); BLOOD UREA NITROGEN 17 mg/dL (7-20); CALCIUM 7.8 mg/dL (8.4-10.2); CARBON DIOXIDE 24 mmol/L (22-30); CHLORIDE 109 mmol/L (98-107); GLUCOSE 126 mg/dL (75-110); POTASSIUM 3.9 mmol/L (3.6-5.0); TOTAL PROTEIN 6.4 g/dL (6.3-8.2)
[2019-07-03] MEDS: CEFEPIME HCL 2 GM in DEXTROSE 5%-WATER 50 ML IV SCH ×2 (05:54→18:52)
[2019-07-03] MEDS: HYDRALAZINE HCL 50 MG TABLET PO SCH ×3 (05:55→22:01)
[2019-07-03] MEDS: HYDRALAZINE HCL INJ/PF 20 MG/1 ML SDV IV PRN (06:53)
[2019-07-03] MEDS ORDERED: NORMAL SALINE 250 ML IV PRN ×2 (07:41)
[2019-07-03] MEDS ORDERED: DIPHENHYDRAMINE HCL 50 MG/ML VIAL ONE (10:07)
[2019-07-03] MEDS ORDERED: HYDRALAZINE HCL INJ/PF 20 MG/1 ML SDV IV PRN (10:12)
[2019-07-03] MEDS: METOPROLOL TARTRATE 50 MG TABLET PO SCH ×2 (11:00→22:01)
[2019-07-03] MEDS ORDERED: ACETAMINOPHEN 325 MG TABLET PO ONE (11:00)
[2019-07-03] MEDS ORDERED: DIPHENHYDRAMINE HCL 50 MG/ML VIAL IV ONE (11:00)
[2019-07-03] MEDS: FONDAPARINUX SODIUM INJ 2.5 MG/0.5 ML DISP.SYRIN SUBCUT SCH (11:00)
[2019-07-03] MEDS: FLUTICASONE NASAL SPRAY 50 MCG/SPRY 120 SPRAY/16 GM NASL SCH ×2 (11:29→22:00)
[2019-07-03] MEDS ORDERED: METHYLPREDNISOLONE INJ 125 MG/2 ML SDV ONE (12:35)
--- NOTE | 2019-07-03 13:11 | PDOC PROGRESS REPORT ---
Subjective Progress Note for:: 07/03/19 Subjective:: This is 64 years old black male patient was past medical history of gout, hypertension, history of alcohol abuse, tobacco dependence and cerebrovascular accident with residual memory deficit, brought with chief complaint of loss of appetite progressive weight loss weakness and shortness of breath. He has had several months of fatigue, poor appetite, weight loss and blood in the toilet of unclear origin. I reviewed his medications and blood work and imaging studies. His his white cell count is elevated at 27,000 and hemoglobin of 5.5. After 2 units of blood transfusion hemoglobin increased to 6. His CT scan of the chest reported as extensive multifocal bilateral groundglass pulmonary opacities and trace bilateral effusion. He has also consolidation of the lingula. At bedside examination patient is awake alert but confused, agitated and try to pull out his IV lines. He is visibly icteric. He has coarse crepitation on both lung anguiano. 06/30/2019: Patient seen and examined while his resting in bed. Patient is more awake alert and oriented to place and person. He is more conversant. He states he is hungry and asking for food. His medication and lab work was reviewed. His white cell count is slightly trending down. His potassium mildly reduced from 3.6-3.3. His hemoglobin is 6.6. His sputum Gram stain is positive for gram-negative rods. 2 units of packed RBC requested. Legionella pneumonia suspected based on acute confusional state, elevated liver chemistries and diffuse bilateral pneumonia. Currently patient has been getting Zosyn. 07/01/2019: Yesterday afternoon patient is being getting packed WBC when he started to have labored breathing, shortness of breath and his blood pressure is in the hypertensive emergency range. I directly activated and patient is given IV Lasix, IV Solu-Medrol and IV morphine sulfate. His chest x-ray revealed diffuse patchy consolidation which is compatible with sudden pulmonary edema. After resuscitation patient transferred to ICU. This morning patient seen resting in bed comfortably. He is in mild respiratory distress. He is off BiPAP and on 2 L of oxygen via nasal cannula and desaturates 98%. His labs reviewed it shows that his white cell count is 26.2 and hemoglobin increased from 5.5-7.8. Some mild hyponatremia with sodium at 149.3. BUN 33 creatinine 1.12 and his total bilirubin trended from 5-1.5. For his hyponatremia I started him on half saline with D5W. 07/03/2019: Patient seen propped up in bed and enjoying his lunch. He saturates 100% while he is on room air. His lab works are unremarkable except for anemia with hemoglobin of 7.6. He is going to be transfused packed RBC after being premedicated with Tylenol, Benadryl and Solu-Medrol. His and his son asked me multiple questions and voiced theirconcerns all were answered to their satisfaction. Reason For Visit: ANEMIA,SEPSIS,AMS,PNEUMONIA Physical Exam Vital Signs: Temp Pulse Resp BP Pulse Ox 97.1 F 78 17 148/93 H 100 07/03/19 12:00 07/03/19 12:00 07/03/19 12:00 07/03/19 12:00 07/03/19 12:00 Intake & Output 07/02/19 07/03/19 07/04/19 06:59 06:59 06:59 Intake Total 2129 1400 150 Output Total 1455 1675 155 Balance 674 -275 -5 Weight 74.5 kg 75 kg General appearance: PRESENT: no acute distress Head exam: PRESENT: atraumatic Neck exam: ABSENT: carotid bruit, JVD, lymphadenopathy, thyromegaly Respiratory exam: PRESENT: clear to auscultation nina. ABSENT: rales, rhonchi, wheezes Cardiovascular exam: PRESENT: RRR. ABSENT: diastolic murmur, rubs, systolic murmur GI/Abdominal exam: PRESENT: normal bowel sounds, soft. ABSENT: distended, guarding, mass, organolmegaly, rebound, tenderness Neurological exam: PRESENT: alert, awake Results Laboratory Results: 07/03/19 03:43 07/03/19 03:43 07/02/19 07/03/19 07/03/19 22:49 03:43 03:43 WBC 16.7 H RBC 2.62 L Hgb 7.6 L Hct 22.9 L MCV 87 MCH 29.2 MCHC 33.4 RDW 15.3 H Plt Count 400 Seg Neutrophils % 72.8 Sodium 140.5 Potassium 3.5 L 3.9 Chloride 109 H Carbon Dioxide 24 Anion Gap 8 BUN 17 Creatinine 0.83 Est GFR ( Amer) > 60 Glucose 126 H Calcium 7.8 L Magnesium 2.4 H 2.3 Total Bilirubin 1.2 AST 27 Alkaline Phosphatase 65 Total Protein 6.4 Albumin 3.2 L Blood Type Antibody Screen 07/03/19 08:05 WBC RBC Hgb Hct MCV MCH MCHC RDW Plt Count Seg Neutrophils % Sodium Potassium Chloride Carbon Dioxide Anion Gap BUN Creatinine Est GFR ( Amer) Glucose Calcium Magnesium Total Bilirubin AST Alkaline Phosphatase Total Protein Albumin Blood Type O POSITIVE Antibody Screen NEGATIVE 06/28/19 06/28/19 21:50 21:50 Creatine Kinase 356 H CK-MB (CK-2) 1.02 Troponin I 0.047 Impressions: Head CT 06/28/19 21:55 IMPRESSION: 1. No acute intracranial findings. 2. Mild atrophy and old right thalamic lacunar infarct as seen on 01/04/2019. Abdomen/Pelvis CT 06/29/19 00:00 IMPRESSION: 1. Extensive multifocal bilateral ground-glass pulmonary opacity and trace bilateral pleural effusions, likely reflecting multifocal infection. 2. Consolidation of the lingula, which may be additionally related to infection. 3. No acute CT abnormality of the abdomen or pelvis. 4. There is a 1.2 cm incidental indeterminate nodule of the left adrenal gland. Consider follow-up adrenal protocol CT in 12 months to ensure stability. Chest CT 06/29/19 00:00 IMPRESSION: 1. Extensive multifocal bilateral ground-glass pulmonary opacity and trace bilateral pleural effusions, likely reflecting multifocal infection. 2. Consolidation of the lingula, which may be additionally related to infection. 3. No acute CT abnormality of the abdomen or pelvis. 4. There is a 1.2 cm incidental indeterminate nodule of the left adrenal gland. Consider follow-up adrenal protocol CT in 12 months to ensure stability. Chest X-Ray 06/30/19 00:00 IMPRESSION: Rehydration versus progressing bilateral pneumonia. Assessment and Plan - Diagnosis (1) Bilateral pneumonia Is this a current diagnosis for this admission?: Yes Plan: Continue antibiotics. Repeat chest x-ray (2) Hypernatremia Is this a current diagnosis for this admission?: Yes Plan: Has resolved (3) Acute encephalopathy Is this a current diagnosis for this admission?: Yes Plan: Improving (4) Anemia Is this a current diagnosis for this admission?: Yes Plan: Yesterday patient was scheduled to be transfused 2 units of packed RBC and after the first half transfusion patient developed some shortness of breath. And the transfusion was on hold. Hemoglobin increased from 5.5-7.8. Dr. Domingo consulted to evaluate this patient. (5) Hyperbilirubinemia Is this a current diagnosis for this admission?: Yes Plan: Has resolved (6) Hypokalemia Is this a current diagnosis for this admission?: Yes Plan: Being replaced. (7) Hypertension Qualifiers: Hypertension type: essential hypertension Qualified Code(s): I10 - Essential (primary) hypertension Is this a current diagnosis for this admission?: Yes Plan: We will monitor his blood pressure.
[2019-07-03] MEDS ORDERED: PEG 3350/NA SULF,BICARB,CL/KCL 4000 ML PO PRN (14:00)
--- NOTE | 2019-07-03 14:04 | RADIOLOGY REPORT (SQ) ---
EXAM DESCRIPTION: CHEST SINGLE VIEW COMPLETED DATE/TIME: 07/03/2019 1:54 pm REASON FOR STUDY: Pneumonia COMPARISON: 06/30/2019. EXAM PARAMETERS: NUMBER OF VIEWS: One view. TECHNIQUE: Single frontal radiographic view of the chest acquired. RADIATION DOSE: NA LIMITATIONS: None. FINDINGS: LUNGS AND PLEURA: Improved aeration. Faint perihilar airspace disease. MEDIASTINUM AND HILAR STRUCTURES: No masses. Contour normal. HEART AND VASCULAR STRUCTURES: Heart normal in size. Normal vasculature. BONES: No acute findings. HARDWARE: None in the chest. OTHER: No other significant finding. IMPRESSION: IMPROVED APPEARANCE WITH CLEARING OF A MAJORITY OF THE PARENCHYMAL OPACITIES. FAINT PER IHILAR AIRSPACE DISEASE. TECHNICAL DOCUMENTATION: JOB ID: [id number] [employer]- All Rights Reserved Reading location - IP/workstation name: [email or web address]
[2019-07-03] MEDS ORDERED: METHYLPREDNISOLONE INJ 125 MG/2 ML SDV IV ONE (15:30)
[2019-07-03] MEDS: FUROSEMIDE INJ/PF 20 MG/2 ML SDV IV PRN ×2 (16:21→20:36)
--- NOTE | 2019-07-03 17:01 | PDOC PROGRESS REPORT ---
Subjective Progress Note for:: 07/03/19 Subjective:: Patient has no complaints. Still in the ICU. He has had no visible GI source of bleeding. He is receiving blood transfusions for hemoglobin of 7.6. He has a history of colonoscopy by his report 3 years ago with unremarkable findings. Reason For Visit: ANEMIA,SEPSIS,AMS,PNEUMONIA Physical Exam Vital Signs: Temp Pulse Resp BP Pulse Ox 97.9 F 76 30 H 168/93 H 100 07/03/19 16:45 07/03/19 16:45 07/03/19 16:45 07/03/19 16:45 07/03/19 16:45 Intake & Output 07/02/19 07/03/19 07/04/19 06:59 06:59 06:59 Intake Total 2129 1400 750 Output Total 1455 1675 725 Balance 674 -275 25 Weight 74.5 kg 75 kg General appearance: PRESENT: no acute distress, other - In the ICU, more awake and alert yesterday GI/Abdominal exam: PRESENT: other - Soft no peritoneal signs no rigidity Results Laboratory Results: 07/03/19 03:43 07/03/19 03:43 07/02/19 07/03/19 07/03/19 22:49 03:43 03:43 WBC 16.7 H RBC 2.62 L Hgb 7.6 L Hct 22.9 L MCV 87 MCH 29.2 MCHC 33.4 RDW 15.3 H Plt Count 400 Seg Neutrophils % 72.8 Sodium 140.5 Potassium 3.5 L 3.9 Chloride 109 H Carbon Dioxide 24 Anion Gap 8 BUN 17 Creatinine 0.83 Est GFR ( Amer) > 60 Glucose 126 H Calcium 7.8 L Magnesium 2.4 H 2.3 Total Bilirubin 1.2 AST 27 Alkaline Phosphatase 65 Total Protein 6.4 Albumin 3.2 L Blood Type Antibody Screen 07/03/19 08:05 WBC RBC Hgb Hct MCV MCH MCHC RDW Plt Count Seg Neutrophils % Sodium Potassium Chloride Carbon Dioxide Anion Gap BUN Creatinine Est GFR ( Amer) Glucose Calcium Magnesium Total Bilirubin AST Alkaline Phosphatase Total Protein Albumin Blood Type O POSITIVE Antibody Screen NEGATIVE 06/28/19 06/28/19 21:50 21:50 Creatine Kinase 356 H CK-MB (CK-2) 1.02 Troponin I 0.047 Impressions: Head CT 06/28/19 21:55 IMPRESSION: 1. No acute intracranial findings. 2. Mild atrophy and old right thalamic lacunar infarct as seen on 01/04/2019. Abdomen/Pelvis CT 06/29/19 00:00 IMPRESSION: 1. Extensive multifocal bilateral ground-glass pulmonary opacity and trace bilateral pleural effusions, likely reflecting multifocal infection. 2. Consolidation of the lingula, which may be additionally related to inf ection. 3. No acute CT abnormality of the abdomen or pelvis. 4. There is a 1.2 cm incidental indeterminate nodule of the left adrenal gland. Consider follow-up adrenal protocol CT in 12 months to ensure stability. Chest CT 06/29/19 00:00 IMPRESSION: 1. Extensive multifocal bilateral ground-glass pulmonary opacity and trace bilateral pleural effusions, likely reflecting multifocal infection. 2. Consolidation of the lingula, which may be additionally related to infection. 3. No acute CT abnormality of the abdomen or pelvis. 4. There is a 1.2 cm incidental indeterminate nodule of the left adrenal gland. Consider follow-up adrenal protocol CT in 12 months to ensure stability. Chest X-Ray 07/03/19 00:00 IMPRESSION: IMPROVED APPEARANCE WITH CLEARING OF A MAJORITY OF THE PARENCHYMAL OPACITIES. FAINT PERIHILAR AIRSPACE DISEASE. Assessment & Plan - Diagnosis (1) Gastrointestinal bleeding Is this a current diagnosis for this admission?: Yes Plan: Impression: Acute blood loss anemia of unclear etiology; patient underwent upper endoscopy with no definitive source of bleeding identified; patient has a remote history of colonoscopy 3 years ago with reportedly unremarkable findings. Recommendations: 1. We will keep patient on clear liquids today, n.p.o. after midnight; bowel prep tonight 2. Patient will be set up for colonoscopy with polypectomy, possible biopsy, possible clip placement, possible injection therapy by Dr. Cummings: This was explained to the patient. He expresses understanding agrees to proceed. (2) Bilateral pneumonia Is this a current diagnosis for this admission?: Yes (3) Anemia Qualifiers: Anemia type: unspecified type Qualified Code(s): D64.9 - Anemia, unspecifi ed Is this a current diagnosis for this admission?: Yes (4) Alcohol withdrawal Qualifiers: Complication of substance-induced condition: uncomplicated Qualified Code(s): F10.230 - Alcohol dependence with withdrawal, uncomplicated Is this a current diagnosis for this admission?: Yes
[2019-07-03 22:46] LABS: ABSOLUTE EOSINOPHILS # (AUTO) 0.2 10^3/uL (0.0-0.6); ABSOLUTE LYMPHOCYTES (AUTO) 1.2 10^3/uL (0.5-4.7); ABSOLUTE MONOCYTES (AUTO) 0.3 10^3/uL (0.1-1.4); ABSOLUTE NEUT (AUTO) 13.9 10^3/uL (1.7-8.2); BASOPHILS % (AUTO) 0.3 % (0-2); EOSINOPHILS % (AUTO) 1.1 % (0-6); HEMATOCRIT 30.8 % (37.9-51.0); LYMPHOCYTES % (AUTO) 7.4 % (13-45); MEAN CORPUSCULAR HEMOGLOBIN 31.4 pg (27.0-33.4); MEAN CORPUSCULAR HGB CONC 35.2 g/dL (32.0-36.0); MEAN CORPUSCULAR VOLUME 89 fl (80-97); MONOCYTES % (AUTO) 2.2 % (3-13); PLATELET COUNT 383 10^3/uL (150-450); RED BLOOD COUNT 3.45 10^6/uL (4.35-5.55); RED CELL DISTRIBUTION WIDTH 14.7 % (11.5-14.0); TOTAL CELLS COUNTED % (AUTO) 100 %; WHITE BLOOD COUNT 15.6 10^3/uL (4.0-10.5)
[2019-07-03 22:49] LABS: HEMOGLOBIN 10.8 g/dL (13.5-17.0)
[2019-07-04] MEDS: DEXTROSE 5%-1/2 NORMAL SALINE 1,000 ML IV PRN (01:49)
[2019-07-04] MEDS: IPRATROPIUM/ALBUTEROL 0.5-2.5 MG/3 ML AMPUL NEB SCH ×4 (02:24→20:07)
[2019-07-04 04:09] LABS: ABSOLUTE LYMPHOCYTES (AUTO) 1.4 10^3/uL (0.5-4.7); ABSOLUTE MONOCYTES (AUTO) 0.7 10^3/uL (0.1-1.4); ABSOLUTE NEUT (AUTO) 10.9 10^3/uL (1.7-8.2); BASOPHILS % (AUTO) 0.2 % (0-2); HEMATOCRIT 30.6 % (37.9-51.0); HEMOGLOBIN 10.4 g/dL (13.5-17.0); LYMPHOCYTES % (AUTO) 10.5 % (13-45); MEAN CORPUSCULAR HEMOGLOBIN 29.7 pg (27.0-33.4); MEAN CORPUSCULAR VOLUME 87 fl (80-97); MONOCYTES % (AUTO) 5.3 % (3-13); PLATELET COUNT 368 10^3/uL (150-450); RED CELL DISTRIBUTION WIDTH 14.9 % (11.5-14.0); TOTAL CELLS COUNTED % (AUTO) 100 %
[2019-07-04 04:28] LABS: ANION GAP 11 (5-19); BLOOD UREA NITROGEN 18 mg/dL (7-20); CALCIUM 8.2 mg/dL (8.4-10.2); CARBON DIOXIDE 25 mmol/L (22-30); CHLORIDE 104 mmol/L (98-107); GLUCOSE 117 mg/dL (75-110); POTASSIUM 3.9 mmol/L (3.6-5.0)
[2019-07-04] MEDS: HYDRALAZINE HCL 50 MG TABLET PO SCH ×4 (05:33→21:13)
[2019-07-04] MEDS: CEFEPIME HCL 2 GM in DEXTROSE 5%-WATER 50 ML IV SCH (05:33)
--- NOTE | 2019-07-04 08:25 | PDOC PROGRESS REPORT ---
Subjective Progress Note for:: 07/04/19 Subjective:: patient is having difficulty drinking the Golytely prep Reason For Visit: ANEMIA,SEPSIS,AMS,PNEUMONIA Physical Exam Vital Signs: Temp Pulse Resp BP Pulse Ox 98 F 77 14 134/73 H 99 07/04/19 04:00 07/04/19 07:59 07/04/19 07:59 07/04/19 05:07 07/04/19 07:59 Intake & Output 07/03/19 07/04/19 07/05/19 06:59 06:59 06:59 Intake Total 1450 3065 Output Total 1675 3760 Balance -225 -695 Weight 75 kg 74.3 kg General appearance: PRESENT: no acute distress Respiratory exam: PRESENT: clear to auscultation nina Cardiovascular exam: PRESENT: RRR GI/Abdominal exam: PRESENT: soft Results Laboratory Results: 07/04/19 03:40 07/04/19 03:40 07/03/19 07/03/19 07/04/19 08:05 22:14 03:40 WBC 15.6 H 13.0 H RBC 3.45 L 3.50 L Hgb 10.8 L D 10.4 L Hct 30.8 L 30.6 L MCV 89 87 MCH 31.4 29.7 MCHC 35.2 34.0 RDW 14.7 H 14.9 H Plt Count 383 368 Seg Neutrophils % 89.0 H 84.0 H Sodium Potassium Chloride Carbon Dioxide Anion Gap BUN Creatinine Est GFR ( Amer) Glucose Calcium Magnesium Blood Type O POSITIVE Antibody Screen NEGATIVE 07/04/19 03:40 WBC RBC Hgb Hct MCV MCH MCHC RDW Plt Count Seg Neutrophils % Sodium 139.9 Potassium 3.9 Chloride 104 Carbon Dioxide 25 Anion Gap 11 BUN 18 Creatinine 0.97 Est GFR ( Amer) > 60 Glucose 117 H Calcium 8.2 L Magnesium 2.2 Blood Type Antibody Screen 06/29/19 00:20 Blood Blood Culture - Final NO GROWTH IN 5 DAYS 06/28/19 21:50 Blood Blood Culture - Final NO GROWTH IN 5 DAYS 06/28/19 06/28/19 21:50 21:50 Creatine Kinase 356 H CK-MB (CK-2) 1.02 Troponin I 0.047 Impressions: Head CT 06/28/19 21:55 IMPRESSION: 1. No acute intracranial findings. 2. Mild atrophy and old right thalamic lacunar infarct as seen on 01/04/2019. Abdomen/Pelvis CT 06/29/19 00:00 IMPRESSION: 1. Extensive multifocal bilateral ground-glass pulmonary opacity and trace bilateral pleural effusions, likely reflecting multifocal infection. 2. Consolidation of the lingula, which may be additionally related to infection. 3. No acute CT abnormality of the abdomen or pelvis. 4. There is a 1.2 cm incidental indeterminate nodule of the left adrenal gland. Consider follow-up adrenal protocol CT in 12 months to ensure stability. Chest CT 06/29/19 00:00 IMPRESSION: 1. Extensive multifocal bilateral ground-glass pulmonary opacity and trace bilateral pleural effusions, likely reflecting multifocal infection. 2. Consolidation of the lingula, which may be additionally related to infection. 3. No acute CT abnormality of the abdomen or pelvis. 4. There is a 1.2 cm incidental indeterminate nodule of the left adrenal gland. Consider follow-up adrenal protocol CT in 12 months to ensure stability. Chest X-Ray 07/03/19 00:00 IMPRESSION: IMPROVED APPEARANCE WITH CLEARING OF A MAJORITY OF THE PARENCHYMAL OPACITIES. FAINT PERIHILAR AIRSPACE DISEASE. Assessment & Plan - Diagnosis (1) Anemia Qualifiers: Anemia type: unspecified type Qualified Code(s): D64.9 - Anemia, unspecified Is this a current diagnosis for this admission?: Yes - Plan Summary Plan Summary: A/ Patient with anemia unknown cause Patient poorly cooperative with his bowel prep regimen P/ Hold off colonoscopy till tomorrow Mg Citrate 1 bottle today Resume bowl prep tonight NPO after midnight
[2019-07-04] MEDS ORDERED: MAGNESIUM CITRATE 296 ML BOTTLE PO ONE (08:45)
[2019-07-04] MEDS ORDERED: GLUCAGON,HUMAN RECOMB 1 MG INJ SUBCUT PRN (10:28)
[2019-07-04] MEDS ORDERED: DEXTROSE 40% GEL 15 GM TUBE PO PRN ×2 (10:28)
[2019-07-04] MEDS ORDERED: DEXTROSE 50%-WATER 25 GM/50 ML DISP.SYRIN IV PRN ×2 (10:28)
[2019-07-04] MEDS: FONDAPARINUX SODIUM INJ 2.5 MG/0.5 ML DISP.SYRIN SUBCUT SCH (11:37)
[2019-07-04] MEDS: FLUTICASONE NASAL SPRAY 50 MCG/SPRY 120 SPRAY/16 GM NASL SCH ×2 (11:37→21:14)
[2019-07-04] MEDS: METOPROLOL TARTRATE 50 MG TABLET PO SCH ×2 (11:42→21:13)
--- NOTE | 2019-07-04 12:03 | PDOC PROGRESS REPORT ---
Subjective Progress Note for:: 07/04/19 Subjective:: Assumed care today. Chart and course reviewed. This is a 64-year-old male who was initially admitted for acute encephalopathy and multifocal pneumonia. He was also noted to have a hemoglobin of 5.5. He did have the episodes of bright red bloody stools during this hospital course. He received pRBC transfusion on 06/30/2019 after which he developed pulmonary edema requiring BiPAP and diuretics and was subsequently transferred to the ICU. His acute respiratory failure has resolved. He has been weaned off the supplemental oxygen at night but encounter this morning, he is saturating well on room air. He expressed frustration that he is unable to go to the bathroom by himself. He denies any acute complaints and denies chest pain or shortness of breath. He is getting a prep for colonoscopy for tomorrow. He is oriented to person and place but he thinks it is 1953. Downgrade to IMCU. Reason For Visit: ANEMIA,SEPSIS,AMS,PNEUMONIA Physical Exam Vital Signs: Temp Pulse Resp BP Pulse Ox 98.5 F 83 22 H 163/95 H 96 07/04/19 08:00 07/04/19 08:00 07/04/19 09:08 07/04/19 09:08 07/04/19 08:00 Intake & Output 07/03/19 07/04/19 07/05/19 06:59 06:59 06:59 Intake Total 1450 3065 Output Total 1675 3760 125 Balance -225 -695 -125 Weight 165 lb 5.547 oz 163 lb 12.855 oz General appearance: PRESENT: no acute distress, well-developed, well-nourished Head exam: PRESENT: atraumatic, normocephalic Eye exam: PRESENT: conjunctiva pink, EOMI, PERRLA. ABSENT: scleral icterus Ear exam: PRESENT: normal external ear exam Mouth exam: PRESENT: moist, tongue midline Neck exam: ABSENT: carotid bruit, JVD, lymphadenopathy, thyromegaly Respiratory exam: PRESENT: rhonchi. ABSENT: rales, wheezes Cardiovascular exam: PRESENT: RRR. ABSENT: diastolic murmur, rubs, systolic murmur Pulses: PRESENT: normal dorsalis pedis pul GI/Abdominal exam: PRESENT: normal bowel sounds, soft. ABSENT: distended, guarding, mass, organolmegaly, rebound, tenderness Rectal exam: PRESENT: deferred Neurological exam: PRESENT: alert, awake, oriented to person, oriented to place, CN II-XII grossly intact. ABSENT: motor sensory deficit Results Laboratory Results: 07/04/19 03:40 07/04/19 03:40 07/03/19 07/03/19 07/04/19 08:05 22:14 03:40 WBC 15.6 H 13.0 H RBC 3.45 L 3.50 L Hgb 10.8 L D 10.4 L Hct 30.8 L 30.6 L MCV 89 87 MCH 31.4 29.7 MCHC 35.2 34.0 RDW 14.7 H 14.9 H Plt Count 383 368 Seg Neutrophils % 89.0 H 84.0 H Sodium Potassium Chloride Carbon Dioxide Anion Gap BUN Creatinine Est GFR ( Amer) Glucose Calcium Magnesium Blood Type O POSITIVE Antibody Screen NEGATIVE 07/04/19 03:40 WBC RBC Hgb Hct MCV MCH MCHC RDW Plt Count Seg Neutrophils % Sodium 139.9 Potassium 3.9 Chloride 104 Carbon Dioxide 25 Anion Gap 11 BUN 18 Creatinine 0.97 Est GFR ( Amer) > 60 Glucose 117 H Calcium 8.2 L Magnesium 2.2 Blood Type Antibody Screen 06/29/19 01:05 Catheterized Urine Legionella Urinary Antigen - Final 06/29/19 00:20 Blood Blood Culture - Final NO GROWTH IN 5 DAYS 06/28/19 21:50 Blood Blood Culture - Final NO GROWTH IN 5 DAYS 06/28/19 06/28/19 21:50 21:50 Creatine Kinase 356 H CK-MB (CK-2) 1.02 Troponin I 0.047 Impressions: Head CT 06/28/19 21:55 IMPRESSION: 1. No acute intracranial findings. 2. Mild atrophy and old right thalamic lacunar infarct as seen on 01/04/2019. Abdomen/Pelvis CT 06/29/19 00:00 IMPRESSION: 1. Extensive multifocal bilateral ground-glass pulmonary opacity and trace bilateral pleural effusions, likely reflecting multifocal infection. 2. Consolidation of the lingula, which may be additionally related to infection. 3. No acute CT abnormality of the abdomen or pelvis. 4. There is a 1.2 cm incidental indeterminate nodule of the left adrenal gland. Consider follow-up adrenal protocol CT in 12 months to ensure stability. Chest CT 06/29/19 00:00 IMPRESSION: 1. Extensive multifocal bilateral ground-glass pulmonary opacity and trace bilateral pleural effusions, likely reflecting multifocal infection. 2. Consolidation of the lingula, which may be additionally related to infection. 3. No acute CT abnormality of the abdomen or pelvis. 4. There is a 1.2 cm incidental indeterminate nodule of the left adrenal gland. Consider follow-up adrenal protocol CT in 12 months to ensure stability. Chest X-Ray 07/03/19 00:00 IMPRESSION: IMPROVED APPEARANCE WITH CLEARING OF A MAJORITY OF THE PARENCHYMAL OPACITIES. FAINT PERIHILAR AIRSPACE DISEASE. Assessment and Plan - Diagnosis (1) GI bleed Is this a current diagnosis for this admission?: Yes Plan: S/P 5 units of PRBC. He is scheduled for a colonoscopy tomorrow. Hb was 5.5. on admission. Hb today has been stable at 10. S/P EGD which only showed mild gastritis and mild duodenitis. (2) Acute blood loss anemia Is this a current diagnosis for this admission?: Yes Plan: As per number 1. (3) Acute encephalopathy Is this a current diagnosis for this admission?: Yes Plan: Resolving. (4) Hypertension Qualifiers: Hypertension type: essential hypertension Qualified Code(s): I10 - Essential (primary) hypertension Is this a current diagnosis for this admission?: Yes Plan: Continue lopressor. (5) Pneumonia Qualifiers: Pneumonia type: due to unspecified organism Laterality: bilateral Lung location: lower lobe of lung Qualified Code(s): J18.1 - Lobar pneumonia, unspecified organism Is this a current diagnosis for this admission?: Yes Plan: Sputum culture growing S. pneumo and Pseudomonas. Currently on cefepime. Switch to PO Levofloxacin. (6) Pulmonary edema Qualifiers: Chronicity: acute Qualified Code(s): J81.0 - Acute pulmonary edema Is this a current diagnosis for this admission?: Yes Plan: Resolving. Related to blood transfusion. He was given diuretics and steroids during the event. - Time Time Spent with patient: 25-34 minutes
[2019-07-04] MEDS ORDERED: PEG 3350/NA SULF,BICARB,CL/KCL 4000 ML PO ONE (17:00)
[2019-07-04] MEDS ORDERED: BISACODYL 5 MG TABEC PO ONE (17:00)
[2019-07-04] MEDS ORDERED: FLUTICASONE NASAL SPRAY 50 MCG/SPRY 120 SPRAY/16 GM ONE (21:49)
[2019-07-05] MEDS: IPRATROPIUM/ALBUTEROL 0.5-2.5 MG/3 ML AMPUL NEB SCH ×4 (02:01→20:18)
[2019-07-05 05:54] LABS: ANION GAP 14 (5-19); BLOOD UREA NITROGEN 25 mg/dL (7-20); CALCIUM 9.2 mg/dL (8.4-10.2); CARBON DIOXIDE 22 mmol/L (22-30); CHLORIDE 104 mmol/L (98-107); GLUCOSE 99 mg/dL (75-110); POTASSIUM 4.4 mmol/L (3.6-5.0)
[2019-07-05] MEDS: HYDRALAZINE HCL 50 MG TABLET PO SCH ×3 (06:50→22:05)
[2019-07-05] MEDS ORDERED: NALOXONE HCL INJ/PF 0.4 MG/1 ML SDV ONE (09:02)
[2019-07-05] MEDS ORDERED: EPINEPHRINE INJ 1 MG/10 ML DISP.SYRIN ONE (09:02)
[2019-07-05] MEDS ORDERED: GLUCAGON,HUMAN RECOMB 1 MG INJ ONE (09:02)
[2019-07-05] MEDS ORDERED: DIPHENHYDRAMINE HCL 50 MG/ML VIAL ONE (09:02)
[2019-07-05] MEDS ORDERED: FENTANYL CITRATE INJ/PF 100 MCG/2 ML AMPUL ONE (09:02)
[2019-07-05] MEDS ORDERED: ONDANSETRON HCL INJ/PF 4 MG/2 ML SDV ONE (09:02)
[2019-07-05] MEDS ORDERED: FLUMAZENIL INJ 0.5 MG/5 ML VIAL ONE (09:02)
[2019-07-05] MEDS: MIDAZOLAM 2 MG/2 ML INJ ONE ×2 (09:35→09:42)
[2019-07-05] MEDS: FENTANYL CITRATE INJ/PF 100 MCG/2 ML AMPUL ONE ×3 (09:37→09:47)
--- NOTE | 2019-07-05 09:38 | Progress Note Acknowledgement ---
Progress Note Acknowledgement Progess Note Acknowledgement: I, the undersigned member of the medical staff with appropriate privileges and with supervisory authority over [ PAC ], a dependent practice allied health professional, acknowledge that I have reviewed the progress notes entered on this patient, and in my professional judgment believe that the assessment made and/or any care evidenced was appropriate
--- NOTE | 2019-07-05 09:50 | PDOC PROGRESS REPORT ---
Subjective Progress Note for:: 07/05/19 Subjective:: 07/05/2019 Patient was admitted 06/29/2019 for anemia,sepsis, altered mental status and pneumonia. Patient is scheduled for colonoscopy this morning only complaint is of being hungry. There is some question this morning and speaking with him about dementia. Reason For Visit: ANEMIA,SEPSIS,AMS,PNEUMONIA Physical Exam Vital Signs: Temp Pulse Resp BP Pulse Ox 97.7 F 64 16 131/70 H 99 07/05/19 03:24 07/05/19 07:55 07/05/19 07:55 07/05/19 03:24 07/05/19 07:55 Intake & Output 07/04/19 07/05/19 07/06/19 06:59 06:59 06:59 Intake Total 3065 1380 Output Total 3760 625 Balance -695 755 Weight 74.3 kg 72.2 kg General appearance: PRESENT: no acute distress, well-developed, well-nourished Respiratory exam: PRESENT: clear to auscultation nina. ABSENT: rales, rhonchi, wheezes Cardiovascular exam: PRESENT: RRR. ABSENT: diastolic murmur, rubs, systolic murmur GI/Abdominal exam: PRESENT: normal bowel sounds, soft. ABSENT: distended, guarding, mass, organolmegaly, rebound, tenderness Neurological exam: PRESENT: alert, awake, oriented to person, oriented to place, oriented to time, oriented to situation, CN II-XII grossly intact. ABSENT: motor sensory deficit Psychiatric exam: PRESENT: anxious - Patient repeats over and over that he is hungry and wants to eat. Recent is concerned about his colonoscopy this morning or his other medical problems Results Laboratory Results: 07/04/19 03:40 07/05/19 04:39 07/05/19 04:39 Sodium 140.4 Potassium 4.4 Chloride 104 Carbon Dioxide 22 Anion Gap 14 BUN 25 H Creatinine 1.16 Est GFR ( Amer) > 60 Glucose 99 Calcium 9.2 Magnesium 2.8 H 06/29/19 01:05 Catheterized Urine Legionella Urinary Antigen - Final 06/28/19 06/28/19 21:50 21:50 Creatine Kinase 356 H CK-MB (CK-2) 1.02 Troponin I 0.047 Impressions: Head CT 06/28/19 21:55 IMPRESSION: 1. No acute intracranial findings. 2. Mild atrophy and old right thalamic lacunar infarct as seen on 01/04/2019. Abdomen/Pelvis CT 06/29/19 00:00 IMPRESSION: 1. Extensive multifocal bilateral ground-glass pulmonary opacity and trace bilateral pleural effusions, likely reflecting multifocal infection. 2. Consolidation of the lingula, which may be additionally related to infection. 3. No acute CT abnormality of the abdomen or pelvis. 4. There is a 1.2 cm incidental indeterminate nodule of the left adrenal gland. Consider follow-up adrenal protocol CT in 12 months to ensure stability. Chest CT 06/29/19 00:00 IMPRESSION: 1. Extensive multifocal bilateral ground-glass pulmonary opacity and trace bilateral pleural effusions, likely reflecting multifocal infection. 2. Consolidation of the lingula, which may be additionally related to infection. 3. No acute CT abnormality of the abdomen or pelvis. 4. There is a 1.2 cm incidental indeterminate nodule of the left adrenal gland. Consider follow-up adrenal protocol CT in 12 months to ensure stability. Chest X-Ray 07/03/19 00:00 IMPRESSION: IMPROVED APPEARANCE WITH CLEARING OF A MAJORITY OF THE PARENCHYMAL OPACITIES. FAINT PERIHILAR AIRSPACE DISEASE. Assessment and Plan - Diagnosis (1) Acute encephalopathy Is this a current diagnosis for this admission?: Yes (2) Anemia Qualifiers: Anemia type: unspecified type Qualified Code(s): D64.9 - Anemia, unspecified Is this a current diagnosis for this admission?: Yes Plan: Family reports blood in the toilet unclear source, 2 units of packed red blood cells ordered, urinalysis positive for blood, follow-up LDH, CEA, PSA, posttransfusion CBC anemia work-up, consider GI or urology consult 07/05/2019 on admission his hemoglobin was 7.7 and hematocrit 22.9 yesterday to come up to 10.4 and 30.6 patient received transfusions after admission that unfortunately put him into respiratory failure however this is resolved, with no shortness of breath or chest pain today. Patient is currently scheduled for colonoscopy this morning. Being seen by surgery concerning his anemia (3) Bilateral pneumonia Is this a current diagnosis for this admission?: Yes Plan: Continue antibiotics. Repeat chest x-ray 07/05/2019 chest x-ray done 2 days ago shows improved appearance with clearing and only faint perihilar airspace disease. This was compared to previous chest x- ray. On admission his white count was 27.7 yesterday it was down to 13,000. Patient is currently on Levaquin 150 mg by mouth on admission patient was placed on Zithromax IV, as well as cefepime. Patient was also given a dose of Zosyn, patient is also had Rocephin. Patient has remained afebrile throughout his hospitalization (4) Alcohol abuse Is this a current diagnosis for this admission?: Yes Plan: Thiamine ordered, consider Ativan as needed withdrawal symptoms 07/05/2019 patient has a history of alcohol abuse, patient is currently on no medicines for withdrawals - Time Time Spent with patient: 25-34 minutes
--- NOTE | 2019-07-05 10:59 | Operative Report ---
Operative Report DATE OF SURGERY: 07/05/19 PREOPERATIVE DIAGNOSIS: Anemia POSTOPERATIVE DIAGNOSIS: Anemia, sigmoid colon diverticulosis, pedunculated polyp at 35 cm from anal verge OPERATION: Colonoscopy to cecum, polypectomy x135 cm from anal verge, injection of ink x4 at the polypectomy site SURGEON: KATHERYN WALKER ANESTHESIA: Moderate Sedation - Provided by Dr. Walker: 2 mg of the push of Versed, 75 mcg IV push fentanyl, 1 mg IV push of glucagon TISSUE REMOVED OR ALTERED: Colon polyp at 35 cm from the anal verge it could not be retrieved COMPLICATIONS: None ESTIMATED BLOOD LOSS: Not applicable INTRAOPERATIVE FINDINGS: Diffuse diverticulosis of the sigmoid colon; pedunculated less than 1 cm polyp at 35 cm from anal verge which could not be retrieved PROCEDURE: The colonoscopy was performed in the endoscopy suite, the patient was placed in the lateral decubitus, and IV sedation was provided by Dr. Walker. The scope was inserted into the rectum and the several segments of the colon up to the cecum. The preparation was good: no masses, strictures, mucosal changes, and w ere noted. Scattered diverticula of the sigmoid colon were noted. An less than 1 cm. Collated polyp was identified at 35 cm from the anal verge. This was excised with a hot snare; however, due to the patient's lack of rectal tone and multiple attempts the polyp could not be retrieved. The colonoscope was inserted multiple times about 20 cm proximal to the area of the snaring and then withdrawn slowly but the polyp could not be identified. The scope was then slowly withdrawn from the colon and extracted from the rectum with no difficulty. The patient tolerated procedure well and transferred to the recovery room in satisfactory conditions.
--- NOTE | 2019-07-05 11:09 | Progress Note ---
Provider Note Provider Note: Colonoscopy performed to cecum. Diffuse diverticulosis of the sigmoid colon has been identified. Small less than 1 cm polyp of the sigmoid at 35 cm from the anal verge was hot snared; however, it could not be retrieved due to the lack of patient rectal tone. Nurses instructed to search the stools for the next 24 hours and to send up the polyp to pathology if identified. We will sign off. Call me with questions.
[2019-07-05] MEDS: FONDAPARINUX SODIUM INJ 2.5 MG/0.5 ML DISP.SYRIN SUBCUT SCH (11:57)
[2019-07-05] MEDS: LEVOFLOXACIN 750 MG TABLET PO SCH (12:01)
[2019-07-05] MEDS: METOPROLOL TARTRATE 50 MG TABLET PO SCH ×2 (12:01→22:05)
[2019-07-05] MEDS: FLUTICASONE NASAL SPRAY 50 MCG/SPRY 120 SPRAY/16 GM NASL SCH ×2 (12:01→22:04)
--- NOTE | 2019-07-05 18:17 | PDOC PROGRESS REPORT ---
Subjective Progress Note for:: 07/02/13 Subjective:: This is 64 years old black male patient was past medical history of gout, hypertension, history of alcohol abuse, tobacco dependence and cerebrovascular accident with residual memory deficit, brought with chief complaint of loss of appetite progressive weight loss weakness and shortness of breath. He has had several months of fatigue, poor appetite, weight loss and blood in the toilet of unclear origin. I reviewed his medications and blood work and imaging studies. His his white cell count is elevated at 27,000 and hemoglobin of 5.5. After 2 units of blood transfusion hemoglobin increased to 6. His CT scan of the chest reported as extensive multifocal bilateral groundglass pulmonary opacities and trace bilateral effusion. He has also consolidation of the lingula. At bedside examination patient is awake alert but confused, agitated and try to pull out his IV lines. He is visibly icteric. He has coarse crepitation on both lung anguiano. 06/30/2019: Patient seen and examined while his resting in bed. Patient is more awake alert and oriented to place and person. He is more conversant. He states he is hungry and asking for food. His medication and lab work was reviewed. His white cell count is slightly trending down. His potassium mildly reduced from 3.6-3.3. His hemoglobin is 6.6. His sputum Gram stain is positive for gram-negative rods. 2 units of packed RBC requested. Legionella pneumonia suspected based on acute confusional state, elevated liver chemistries and diffuse bilateral pneumonia. Currently patient has been getting Zosyn. 07/01/2019: Yesterday afternoon patient is being getting packed WBC when he started to have labored breathing, shortness of breath and his blood pressure is in the hypertensive emergency range. I directly activated and patient is given IV Lasix, IV Solu-Medrol and IV morphine sulfate. His chest x-ray revealed diffuse patchy consolidation which is compatible with sudden pulmonary edema. After resuscitation patient transferred to ICU. This morning patient seen resting in bed comfortably. He is in mild respiratory distress. He is off BiPAP and on 2 L of oxygen via nasal cannula and desaturates 98%. His labs reviewed it shows that his white cell count is 26.2 and hemoglobin increased from 5.5-7.8. Some mild hyponatremia with sodium at 149.3. BUN 33 creatinine 1.12 and his total bilirubin trended from 5-1.5. For his hyponatremia I started him on half saline with D5W. 07/02/19:Patient seen resting in bed comfortably.less agitated, cooperative and conversant.Patient had EGD which is negative 07/03/2019: Patient seen propped up in bed and enjoying his lunch. He saturates 100% while he is on room air. His lab works are unremarkable except for anemia with hemoglobin of 7.6. He is going to be transfused packed RBC after being premedicated with Tylenol, Benadryl and Solu-Medrol. His and his son asked me multiple questions and voiced theirconcerns all were answered to their satisfaction. Reason For Visit: ANEMIA,SEPSIS,AMS,PNEUMONIA Physical Exam Vital Signs: Temp Pulse Resp BP Pulse Ox 97.7 F 61 16 138/67 H 94 07/05/19 03:24 07/05/19 13:47 07/05/19 13:47 07/05/19 11:05 07/05/19 13:47 Intake & Output 07/04/19 07/05/19 07/06/19 06:59 06:59 06:59 Intake Total 3065 1380 480 Output Total 3760 625 Balance -695 755 480 Weight 74.3 kg 72.2 kg General appearance: PRESENT: no acute distress Head exam: PRESENT: atraumatic Mouth exam: PRESENT: dry mucosa Neck exam: ABSENT: carotid bruit, JVD, lymphadenopathy, thyromegaly Respiratory exam: PRESENT: crackles, decreased breath sounds Cardiovascular exam: PRESENT: RRR. ABSENT: diastolic murmur, rubs, systolic murmur Neurological exam: PRESENT: alert, awake Results Laboratory Results: 07/04/19 03:40 07/05/19 04:39 07/05/19 04:39 Sodium 140.4 Potassium 4.4 Chloride 104 Carbon Dioxide 22 Anion Gap 14 BUN 25 H Creatinine 1.16 Est GFR ( Amer) > 60 Glucose 99 Calcium 9.2 Magnesium 2.8 H 06/28/19 06/28/19 21:50 21:50 Creatine Kinase 356 H CK-MB (CK-2) 1.02 Troponin I 0.047 Impressions: Head CT 06/28/19 21:55 IMPRESSION: 1. No acute intracranial findings. 2. Mild atrophy and old right thalamic lacunar infarct as seen on 01/04/2019. Abdomen/Pelvis CT 06/29/19 00:00 IMPRESSION: 1. Extensive multifocal bilateral ground-glass pulmonary opacity and trace bilateral pleural effusions, likely reflecting multifocal infection. 2. Consolidation of the lingula, which may be additionally related to inf ection. 3. No acute CT abnormality of the abdomen or pelvis. 4. There is a 1.2 cm incidental indeterminate nodule of the left adrenal gland. Consider follow-up adrenal protocol CT in 12 months to ensure stability. Chest CT 06/29/19 00:00 IMPRESSION: 1. Extensive multifocal bilateral ground-glass pulmonary opacity and trace bilateral pleural effusions, likely reflecting multifocal infection. 2. Consolidation of the lingula, which may be additionally related to infection. 3. No acute CT abnormality of the abdomen or pelvis. 4. There is a 1.2 cm incidental indeterminate nodule of the left adrenal gland. Consider follow-up adrenal protocol CT in 12 months to ensure stability. Chest X-Ray 07/03/19 00:00 IMPRESSION: IMPROVED APPEARANCE WITH CLEARING OF A MAJORITY OF THE PARENCHYMAL OPACITIES. FAINT PERIHILAR AIRSPACE DISEASE. Assessment and Plan - Diagnosis (1) Bilateral pneumonia Is this a current diagnosis for this admission?: Yes Plan: Continue antibiotics. Repeat chest x-ray 07/05/2019 chest x-ray done 2 days ago shows improved appearance with clearing and only faint perihilar airspace disease. This was compared to previous chest x- ray. On admission his white count was 27.7 yesterday it was down to 13,000. Patient is currently on Levaquin 150 mg by mouth on admission patient was placed on Zithromax IV, as well as cefepime. Patient was also given a dose of Zosyn, patient is also had Rocephin. Patient has remained afebrile throughout his hospitalization (2) Hypernatremia Is this a current diagnosis for this admission?: Yes Plan: Has resolved (3) Acute encephalopathy Is this a current diagnosis for this admission?: Yes Plan: Resolving. (4) Anemia Is this a current diagnosis for this admission?: Yes Plan: Yesterday patient was scheduled to be transfused 2 units of packed RBC and after the first half transfusion patient developed some shortness of breath. And the transfusion was on hold. Hemoglobin increased from 5.5-7.8. Dr. Domingo consulted to evaluate this patient. (5) Hyperbilirubinemia Is this a current diagnosis for this admission?: Yes Plan: Has resolved (6) Hypokalemia Is this a current diagnosis for this admission?: Yes Plan: Being replaced. (7) Hypertension Qualifiers: Hypertension type: essential hypertension Qualified Code(s): I10 - Essential (primary) hypertension Is this a current diagnosis for this admission?: Yes Plan: Continue lopressor.
[2019-07-06] MEDS: IPRATROPIUM/ALBUTEROL 0.5-2.5 MG/3 ML AMPUL NEB SCH ×2 (01:48→08:26)
[2019-07-06 05:30] LABS: ANION GAP 15 (5-19); BLOOD UREA NITROGEN 35 mg/dL (7-20); CALCIUM 8.9 mg/dL (8.4-10.2); CARBON DIOXIDE 20 mmol/L (22-30); CHLORIDE 106 mmol/L (98-107); GLUCOSE 107 mg/dL (75-110); POTASSIUM 4.2 mmol/L (3.6-5.0)
[2019-07-06] MEDS: HYDRALAZINE HCL 50 MG TABLET PO SCH ×2 (05:47→13:40)
[2019-07-06 10:36] VITALS: BP 152/90
[2019-07-06] MEDS: FLUTICASONE NASAL SPRAY 50 MCG/SPRY 120 SPRAY/16 GM NASL SCH (10:36)
[2019-07-06] MEDS: LEVOFLOXACIN 750 MG TABLET PO SCH (10:37)
[2019-07-06] MEDS: FONDAPARINUX SODIUM INJ 2.5 MG/0.5 ML DISP.SYRIN SUBCUT SCH (10:37)
[2019-07-06] MEDS: METOPROLOL TARTRATE 50 MG TABLET PO SCH (10:37)
--- NOTE | 2019-07-06 10:57 | PDOC DISCHARGE SUMMARY ---
General - Admit/Disc Date/PCP Admission Date/Primary Care Provider: 06/29/19 03:09 She was admitted on 06/29/2019 through the room this and shortness of breath Discharge Date: 07/06/19 - Discharge Diagnosis (1) Acute encephalopathy Is this a current diagnosis for this admission?: Yes Summary: Patient's altered mental status was probably on the basis of hypoxia, anemia, pneumonia. Patient's altered mental status cleared by 06-30 the day after admission. Patient was initially placed on Zosyn IV. Patient did receive 2 units of packed red cells Patient had no further episodes of altered mental status. (2) Anemia Is this a current diagnosis for this admission?: Yes Summary: Patient initially received 2 units of packed red cells her hemoglobin of 5.5. Throughout his hospitalization stay patient received a total of 5 units of packed red cells. Patient's hemoglobin went up to 10.4 hematocrit 30.6 at the t samantha of discharge. Patient did have a colonoscopy yesterday which revealed a small polyp less than 1 cm and diverticulosis. No evidence of active bleeding was seen (3) Bilateral pneumonia Is this a current diagnosis for this admission?: Yes Summary: Patient's initial admission chest x-ray showed bilateral pneumonia, however foll owing IV antibiotics repeat chest x-ray done on showed improved appearance with clearing of the majority of the parenchymal opacities. Patient's O2 sat today is 97% on room air, she has remained afebrile throughout his hospitalization. Patient will be discharged home on 5 more days of Levaquin 750 mg daily to complete a 10-day course. On CT scan of the chest there was a 1.2 cm incidental indeterminate nodule of the left adrenal gland, radiologist recommended follow-up adrenal protocol CT in 12 months. This was conveyed to the nurse as well as the patient and at the time of discharge (4) Alcohol abuse Is this a current diagnosis for this admission?: Yes Summary: Patient has a history of alcohol abuse however had no evidence of withdrawal in the hospital (5) Hypertension Is this a current diagnosis for this admission?: Yes Summary: Patient was on no medicine for high blood pressure prior to admission however at the time of discharge a prescription was written for metoprolol. - Additional Information Resuscitation Status: Full Code Discharge Diet: As Tolerated Discharge Activity: Balance Activity w/Rest Prescriptions: Levofloxacin [Levaquin 750 mg Tablet] 750 mg PO DAILY #5 tablet Metoprolol Tartrate [Lopressor 50 mg Tablet] 50 mg PO Q12 #60 tablet Home Medications: Levofloxacin [Levaquin 750 mg Tablet] 750 mg PO DAILY #5 tablet 07/06/19 Metoprolol Tartrate [Lopressor 50 mg Tablet] 50 mg PO Q12 #60 tablet 07/06/19 History of Present Illness History of Present Illness: ERNIE DUKES is a 64 year old male who was admitted through the emergency room for weakness, shortness of breath altered mental status, anemia Hospital Course Hospital Course: She was admitted through the emergency room for weakness and shortness of breath she was a poor historian but between he and his they were able to say that he has a past medical history of hypertension alcoholism tobacco CVA. Over the last week patient has had trouble walking with shortness of breath and a nonproductive cough due to patient's hemoglobin 5.5 as well as possible pneumonia he was admitted to the hospital for IV antibiotics, IV fluids, and packed red cells. Patient improved within about 24 hours concerning his altered mental status. Patient required 5 units of packed red cells to bring his hemoglobin up to 10.4 Patient received nebulizer treatments while in the hospital as well as medicines for hypertension. Patient also underwent a colonoscopy yesterday by general surgery who found a very small less than 1 cm polyp. Unfortunately this was never sent to the lab because it was failed to be retrieved due to technical difficulties. No areas of active bleeding were seen low extensive diverticulosis which could have attributed to his anemia. Patient is asking to be discharged today I will send him out on metoprolol as well as Levaquin and he will need to follow-up in 1 year for the small adrenal gland normality. Discharge planning has worked with the patient the patient's is a called and also is aware patient is being discharged. At this time patient appears to be medically stable Physical Exam Vital Signs: Temp Pulse Resp BP Pulse Ox 97.6 F 70 14 152/90 H 100 07/06/19 10:14 07/06/19 10:14 07/06/19 10:14 07/06/19 10:14 07/06/19 10:14 Intake & Output 07/05/19 07/06/19 07/07/19 06:59 06:59 06:59 Intake Total 1380 840 Output Total 625 200 Balance 755 640 Weight 72.2 kg 73.3 kg General appearance: PRESENT: no acute distress, other - She is sitting up in bed eating Respiratory exam: PRESENT: clear to auscultation nina, other - 's are clear to auscultation. ABSENT: rales, rhonchi, wheezes Cardiovascular exam: PRESENT: RRR. ABSENT: diastolic murmur, rubs, systolic murmur Neurological exam: PRESENT: alert, awake, oriented to person, oriented to place, oriented to time, oriented to situation, CN II-XII grossly intact, other - She is awake alert and oriented x3. ABSENT: motor sensory deficit Psychiatric exam: PRESENT: appropriate affect, normal mood, other - Patient states he lives with his respiratory as stated that he no longer needs ne bulizer treatments O2 sats are 97% on room air. ABSENT: homicidal ideation, suicidal ideation Results Laboratory Results: 07/04/19 03:40 07/06/19 04:24 07/06/19 04:24 Sodium 140.8 Potassium 4.2 Chloride 106 Carbon Dioxide 20 L Anion Gap 15 BUN 35 H Creatinine 1.28 H Est GFR ( Amer) > 60 Glucose 107 Calcium 8.9 Magnesium 2.7 H 06/28/19 06/28/19 21:50 21:50 Creatine Kinase 356 H CK-MB (CK-2) 1.02 Troponin I 0.047 Impressions: Head CT 06/28/19 21:55 IMPRESSION: 1. No acute intracranial findings. 2. Mild atrophy and old right thalamic lacunar infarct as seen on 01/04/2019. Abdomen/Pelvis CT 06/29/19 00:00 IMPRESSION: 1. Extensive multifocal bilateral ground-glass pulmonary opacity and trace bilateral pleural effusions, likely reflecting multifocal infection. 2. Consolidation of the lingula, which may be additionally related to infection. 3. No acute CT abnormality of the abdomen or pelvis. 4. There is a 1.2 cm incidental indeterminate nodule of the left adrenal gland. Consider follow-up adrenal protocol CT in 12 months to ensure stability. Chest CT 06/29/19 00:00 IMPRESSION: 1. Extensive multifocal bilateral ground-glass pulmonary opacity and trace bilateral pleural effusions, likely reflecting multifocal infection. 2. Consolidation of the lingula, which may be additionally related to infection. 3. No acute CT abnormality of the abdomen or pelvis. 4. There is a 1.2 cm incidental indeterminate nodule of the left adrenal gland. Consider follow-up adrenal protocol CT in 12 months to ensure stability. Chest X-Ray 07/03/19 00:00 IMPRESSION: IMPROVED APPEARANCE WITH CLEARING OF A MAJORITY OF THE PARENCHYMAL OPACITIES. FAINT PERIHILAR AIRSPACE DISEASE. Qualifiers - * PATIENT BEING DISCHARGED WITH ANY OF THE FOLLOWING DIAGNOSIS: No Acute Heart Failure - Is this a Heart Failure Patient?: No Plan Time Spent: Greater than 30 Minutes - Being discharged on 2 medications antibiotic and antihypertensive. Patient will need follow-up within 1 to 2 weeks for repeat labs. Patient will also need repeat adrenal gland study in 1 year. She is medically stable
--- NOTE | 2019-07-06 15:22 | Progress Note ---
Provider Note Provider Note: Patient is discharge instructions included follow-up on the normal CT scan of the adrenal gland, and recommended follow-up 1 year later. New graduate nurse, Hyun, was in the room and conveyed formation to Ben nurse in charge of the patient.
== END 2019-07-06 15:10 | disposition home or self-care (01) | DRG 194 ==
LOC: ER 21:31 → EH 06-29 03:09 → 3W 06-29 05:10 → ICU 06-30 15:54 → 3N 07-04 10:18
PROVIDERS: ADMIT Internal Medicine; ATTEND Internal Medicine
PROC: 30233N1 Transfusion of Nonautologous Red Blood Cells into Peripheral Vein, Percutaneous Approach (ICD-10-PCS; principal; 2019-06-28)
PROC: 30233N1 Transfusion of Nonautologous Red Blood Cells into Peripheral Vein, Percutaneous Approach (ICD-10-PCS; 2019-06-30)
PROC: 0DD68ZX Extraction of Stomach, Via Natural or Artificial Opening Endoscopic, Diagnostic (ICD-10-PCS; 2019-07-02)
PROC: 30233N1 Transfusion of Nonautologous Red Blood Cells into Peripheral Vein, Percutaneous Approach (ICD-10-PCS; 2019-07-03)
PROC: 0DBN8ZX Excision of Sigmoid Colon, Via Natural or Artificial Opening Endoscopic, Diagnostic (ICD-10-PCS; 2019-07-05)
DX: J18.1 Lobar pneumonia, unspecified organism (principal); G93.40 Encephalopathy, unspecified; E87.0 Hyperosmolality and hypernatremia; F10.239 Alcohol dependence with withdrawal, unspecified; K92.2 Gastrointestinal hemorrhage, unspecified; E87.6 Hypokalemia; D50.0 Iron deficiency anemia secondary to blood loss (chronic); K57.30 Diverticulosis of large intestine without perforation or abscess without bleeding; K63.5 Polyp of colon; I10 Essential (primary) hypertension; E80.6 Other disorders of bilirubin metabolism; B95.3 Streptococcus pneumoniae as the cause of diseases classified elsewhere; B96.5 Pseudomonas (aeruginosa) (mallei) (pseudomallei) as the cause of diseases classified elsewhere; F17.210 Nicotine dependence, cigarettes, uncomplicated; Y90.9 Presence of alcohol in blood, level not specified; I69.311 Memory deficit following cerebral infarction
CPT/HCPCS: 36415; 36430; 43239; 45381; 45385; 51701; 70450; 71045; 71260; 74177; 80048; 80053; 80076; 81001; 82140; 82272; 82378; 82550; 82553; 82607; 82728; 82746; 82803; 82962; 83540; 83550; 83605; 83615; 83690; 83735; 84132; 84153; 84443; 84484; 85025; 85045; 85610; 86850; 86880; 86900; 86901; 86920; 87040; 87070; 87077; 87186; 87205; 88305; 93005; 93010; 94660; 94667; 94668; 94799; 96360; 96361; 99285; J0171; J0360; J0456; J0692; J0696; J1200; J1610; J1630; J1652; J1940; J2060; J2250; J2310; J2405; J2543; J2930; J3010; J3411; J3480; J3490; J7030; J7050; J7060; J7620; P9016